=== PATIENT | female | born 1975 | race Caucasian/White ===

== ENCOUNTER 2021-07-14 14:16 | Inpatient (IN) | payer OTHER ==
[2021-07-14 15:32] VITALS: BMI 24.9
[2021-07-14] MEDS ORDERED: MENTHOL/PHENOL 1 EACH UD MM PRN (17:57)
[2021-07-14] MEDS ORDERED: hydrOXYzine PAMOATE 25 MG CAPSULE (FP) PO PRN (17:57)
[2021-07-14] MEDS ORDERED: MAGNESIUM CITRATE 300 ML BOTTLE PO PRN (17:57)
[2021-07-14] MEDS ORDERED: MAG HYDROX/AL HYDROX/SIMETH 30 ML UNIT-DOSE CUP PO PRN (17:57)
[2021-07-14] MEDS ORDERED: MAGNESIUM HYDROX 2400MG/30ML ORAL SUSPENSION 30 ML CUP PO PRN (17:57)
[2021-07-14] MEDS ORDERED: IBUPROFEN 400 MG TABLET (FP) PO PRN (17:57)
[2021-07-14] MEDS ORDERED: ACETAMINOPHEN 325 MG TABLET (FP) PO PRN ×2 (17:57)
[2021-07-14] MEDS ORDERED: BISMUTH SUBSALICYLATE 524 MG/30 ML PO PRN (17:57)
[2021-07-14] MEDS ORDERED: ONDANSETRON *ODT* 4 MG TABLET SL PRN (17:57)
[2021-07-14] MEDS ORDERED: COLLOIDAL OATMEAL 1 BAR EACH TP PRN (17:59)
[2021-07-14] MEDS ORDERED: diazePAM 5 MG TABLET PO ONE (20:00)
[2021-07-14] MEDS: THIAMINE HCL 100 MG TABLET (FP) PO SCH (21:22)
[2021-07-14] MEDS ORDERED: MELATONIN 5 MG TABLETS PO SCH (22:00)
[2021-07-14] MEDS: diazePAM 5 MG TABLET PO SCH (22:17)
[2021-07-15] MEDS: diazePAM 5 MG TABLET PO SCH ×4 (05:57→22:22)
[2021-07-15] MEDS ORDERED: diazePAM 5 MG TABLET PO ONE (09:30)
[2021-07-15] MEDS: PRENATAL VITAMINS W/ FOLIC ACID TABLET (FP) PO SCH (10:21)
[2021-07-15] MEDS: METHOCARBAMOL 500 MG TABLET PO PRN (10:23)
[2021-07-15 10:26] LABS: HEMATOCRIT 34.3 % (32.4-45.2); HEMOGLOBIN 11.7 GM/dL (10.7-15.3); MCH 32.3 pg (25.7-33.7); MCHC 34.2 g/dl (32.0-36.0); MEAN CELL VOLUME 94.3 fl (80-96); MEAN PLT VOLUME 7.4 fl (7.5-11.1); PLATELET COUNT 607 10^3/uL (134-434); RBC 3.63 M/mm3 (3.60-5.2); RDW 17.2 % (11.6-15.6); WHITE BLOOD COUNT 8.7 K/mm3 (4.0-10.0)
[2021-07-15 11:03] LABS: ALBUMIN 3.5 g/dl (3.4-5.0); CALCIUM 9.2 mg/dL (8.5-10.1)
[2021-07-15 11:06] LABS: CREATININE 0.7 mg/dL (0.55-1.3)
[2021-07-15 11:08] LABS: BILIRUBIN,TOTAL 0.6 mg/dL (0.2-1); TOT PROT 7.6 g/dl (6.4-8.2)
[2021-07-15] MEDS ORDERED: FLU VACC QS2021-22(6MOS UP)/PF 60 MCG/0.5 ML SYRINGE IM ONE (12:00)
[2021-07-15] MEDS: GABAPENTIN 100 MG CAPSULE PO SCH ×2 (14:33→22:20)
[2021-07-15] MEDS: amLODIPine BESYLATE 5 MG TABLET (FP) PO SCH (14:33)
[2021-07-15] MEDS: MINERAL OIL/PETROLAT/WATER TOPICAL CREAM 113 GM JAR TP SCH (22:18)
[2021-07-15] MEDS: QUEtiapine FUMARATE 50 MG TABLET PO SCH (22:20)
[2021-07-15] MEDS: THIAMINE HCL 100 MG TABLET (FP) PO SCH (22:21)
[2021-07-15] MEDS: NICOTINE POLACRILEX 2 MG GUM BUC PRN (22:22)
[2021-07-16] MEDS: GABAPENTIN 100 MG CAPSULE PO SCH ×3 (05:48→21:06)
[2021-07-16] MEDS: diazePAM 5 MG TABLET PO SCH ×3 (06:51→22:07)
[2021-07-16] MEDS: MINERAL OIL/PETROLAT/WATER TOPICAL CREAM 113 GM JAR TP SCH ×2 (10:13→22:06)
[2021-07-16] MEDS: PRENATAL VITAMINS W/ FOLIC ACID TABLET (FP) PO SCH (10:14)
[2021-07-16] MEDS: amLODIPine BESYLATE 5 MG TABLET (FP) PO SCH (10:14)
[2021-07-16] MEDS: diazePAM 5 MG TABLET PO PRN (10:16)
[2021-07-16] MEDS: NICOTINE POLACRILEX 2 MG GUM BUC PRN (19:23)
[2021-07-16] MEDS: QUEtiapine FUMARATE 50 MG TABLET PO SCH (22:06)
[2021-07-16] MEDS: THIAMINE HCL 100 MG TABLET (FP) PO SCH (22:06)
[2021-07-17] MEDS: diazePAM 5 MG TABLET PO SCH ×2 (05:37→17:20)
[2021-07-17] MEDS: GABAPENTIN 300 MG CAPSULE PO SCH ×3 (05:37→22:06)
[2021-07-17] MEDS: MINERAL OIL/PETROLAT/WATER TOPICAL CREAM 113 GM JAR TP SCH ×2 (10:27→22:05)
[2021-07-17] MEDS: METHOCARBAMOL 500 MG TABLET PO PRN (10:28)
[2021-07-17] MEDS: diazePAM 5 MG TABLET PO PRN (10:28)
[2021-07-17] MEDS: amLODIPine BESYLATE 5 MG TABLET (FP) PO SCH (10:28)
[2021-07-17] MEDS: PRENATAL VITAMINS W/ FOLIC ACID TABLET (FP) PO SCH (10:28)
[2021-07-17] MEDS: NICOTINE POLACRILEX 2 MG GUM BUC PRN ×2 (10:30→16:31)
[2021-07-17] MEDS ORDERED: NICOTINE 10 MG CARTRIDGE (INHALER) IH PRN (16:40)
[2021-07-17 21:03] VITALS: PULSE 97
[2021-07-17] MEDS: THIAMINE HCL 100 MG TABLET (FP) PO SCH (22:05)
[2021-07-17] MEDS: QUEtiapine FUMARATE 50 MG TABLET PO SCH (22:06)
[2021-07-18] MEDS ORDERED: GABAPENTIN 400 MG CAPSULE PO SCH (06:00)
[2021-07-18] MEDS ORDERED: diazePAM 5 MG TABLET PO ONE (06:00)
[2021-07-18 07:24] VITALS: BP 110/65; TEMP 97.3
== END 2021-07-18 09:25 | disposition home or self-care (01) | DRG 775 ==
LOC: YASAS 14:16 → Y6N 19:57
PROVIDERS: ADMIT Allergy & Immunology; ATTEND Allergy & Immunology
PROC: HZ2ZZZZ Detoxification Services for Substance Abuse Treatment (ICD-10-PCS; principal; 2021-07-14)
DX: F10.230 Alcohol dependence with withdrawal, uncomplicated (principal); F17.210 Nicotine dependence, cigarettes, uncomplicated; F10.280 Alcohol dependence with alcohol-induced anxiety disorder; F10.282 Alcohol dependence with alcohol-induced sleep disorder; I10 Essential (primary) hypertension; K21.9 Gastro-esophageal reflux disease without esophagitis; R74.01 Elevation of levels of liver transaminase levels; Z56.0 Unemployment, unspecified; Z59.00 Homelessness unspecified
CPT/HCPCS: 36415; 80053; 81025; 85027; 86780; 90686; C9803; G0008; Q0162; U0003; U0005

== ENCOUNTER 2021-11-11 12:56 | Inpatient (IN) | payer OTHER ==
[2021-11-11] MEDS ORDERED: MAGNESIUM HYDROX 2400MG/30ML ORAL SUSPENSION 30 ML CUP PO PRN (13:48)
[2021-11-11] MEDS ORDERED: LORazepam 1 MG TABLET PO PRN (13:48)
[2021-11-11] MEDS ORDERED: MAGNESIUM CITRATE 300 ML BOTTLE PO PRN (13:48)
[2021-11-11] MEDS ORDERED: MENTHOL/PHENOL 1 EACH UD MM PRN (13:48)
[2021-11-11] MEDS ORDERED: NICOTINE 10 MG CARTRIDGE (INHALER) IH PRN (13:48)
[2021-11-11] MEDS ORDERED: ONDANSETRON *ODT* 4 MG TABLET SL PRN (13:48)
[2021-11-11] MEDS ORDERED: IBUPROFEN 400 MG TABLET (FP) PO PRN (13:48)
[2021-11-11] MEDS ORDERED: ACETAMINOPHEN 325 MG TABLET (FP) PO PRN ×2 (13:48)
[2021-11-11] MEDS ORDERED: METHOCARBAMOL 500 MG TABLET PO PRN (13:48)
[2021-11-11] MEDS ORDERED: MAG HYDROX/AL HYDROX/SIMETH 30 ML UNIT-DOSE CUP PO PRN (13:48)
[2021-11-11] MEDS ORDERED: BISMUTH SUBSALICYLATE 524 MG/30 ML PO PRN (13:48)
[2021-11-11] MEDS ORDERED: PATIENT'S OWN MEDICATION (NON-FORMULARY) (Meloxicam [Meloxicam] 15 MG Tablet) PO PRN (13:51)
[2021-11-11 14:18] VITALS: BMI 23.2
[2021-11-11] MEDS ORDERED: COLLOIDAL OATMEAL 1 BAR EACH TP PRN (15:04)
[2021-11-11 16:44] LABS: HEMATOCRIT 35.4 % (32.4-45.2); MCH 33.3 pg (25.7-33.7); MEAN PLT VOLUME 7.3 fl (7.5-11.1); PLATELET COUNT 329 10^3/uL (134-434); RBC 3.61 M/mm3 (3.60-5.2); RDW 13.8 % (11.6-15.6); WHITE BLOOD COUNT 5.2 K/mm3 (4.0-10.0)
[2021-11-11 16:50] LABS: ALBUMIN 4.2 g/dl (3.4-5.0); BLOOD UREA NITROGEN 6.2 mg/dL (7-18); CALCIUM 9.1 mg/dL (8.5-10.1)
[2021-11-11 16:53] LABS: CREATININE 0.6 mg/dL (0.55-1.3)
[2021-11-11 16:55] LABS: BILIRUBIN,TOTAL 0.5 mg/dL (0.2-1); TOT PROT 8.4 g/dl (6.4-8.2)
[2021-11-11] MEDS: hydrOXYzine PAMOATE 25 MG CAPSULE (FP) PO SCH ×3 (17:52→22:29)
[2021-11-11] MEDS: LORazepam 2 MG TABLET PO SCH ×2 (17:52→22:29)
[2021-11-11] MEDS: NICOTINE 7 MG/24 HOURS TOPICAL PATCH TD SCH (17:54)
[2021-11-11] MEDS: PRENATAL VITAMINS W/ FOLIC ACID TABLET (FP) PO SCH (17:55)
[2021-11-11] MEDS ORDERED: QUEtiapine FUMARATE 50 MG TABLET PO SCH (22:00)
[2021-11-11] MEDS: GABAPENTIN 300 MG CAPSULE PO SCH (22:29)
[2021-11-11] MEDS: THIAMINE HCL 100 MG TABLET (FP) PO SCH (22:29)
[2021-11-11] MEDS: MELATONIN 5 MG TABLETS PO SCH (22:29)
[2021-11-12] MEDS: hydrOXYzine PAMOATE 25 MG CAPSULE (FP) PO SCH ×6 (00:43→23:10)
[2021-11-12] MEDS: LORazepam 2 MG TABLET PO SCH ×4 (05:58→23:10)
[2021-11-12] MEDS: GABAPENTIN 300 MG CAPSULE PO SCH ×2 (10:44→23:10)
[2021-11-12] MEDS: PANTOPRAZOLE 20 MG TABLET PO SCH (10:45)
[2021-11-12] MEDS: amLODIPine BESYLATE 5 MG TABLET (FP) PO SCH (10:45)
[2021-11-12] MEDS: PRENATAL VITAMINS W/ FOLIC ACID TABLET (FP) PO SCH (10:45)
[2021-11-12] MEDS: NICOTINE 7 MG/24 HOURS TOPICAL PATCH TD SCH (10:45)
[2021-11-12] MEDS: TOPIRAMATE 25 MG TABLET PO SCH (22:54)
[2021-11-12] MEDS: MELATONIN 5 MG TABLETS PO SCH (23:09)
[2021-11-12] MEDS: risperiDONE 1 MG TABLET PO SCH (23:10)
[2021-11-12] MEDS: THIAMINE HCL 100 MG TABLET (FP) PO SCH (23:10)
[2021-11-13] MEDS: hydrOXYzine PAMOATE 25 MG CAPSULE (FP) PO SCH ×5 (06:05→22:40)
[2021-11-13] MEDS: LORazepam 1 MG TABLET PO SCH ×4 (06:05→22:40)
[2021-11-13] MEDS: PRENATAL VITAMINS W/ FOLIC ACID TABLET (FP) PO SCH (10:34)
[2021-11-13] MEDS: TOPIRAMATE 25 MG TABLET PO SCH ×2 (10:34→22:41)
[2021-11-13] MEDS: NICOTINE 7 MG/24 HOURS TOPICAL PATCH TD SCH (10:34)
[2021-11-13] MEDS: SERTRALINE HCL 50 MG TABLET (FP) PO SCH (10:34)
[2021-11-13] MEDS: PANTOPRAZOLE 20 MG TABLET PO SCH (10:35)
[2021-11-13] MEDS: amLODIPine BESYLATE 5 MG TABLET (FP) PO SCH (10:41)
[2021-11-13] MEDS: GABAPENTIN 300 MG CAPSULE PO SCH ×2 (11:36→22:39)
[2021-11-13] MEDS: THIAMINE HCL 100 MG TABLET (FP) PO SCH (22:40)
[2021-11-13] MEDS: MELATONIN 5 MG TABLETS PO SCH (22:40)
[2021-11-13] MEDS: risperiDONE 1 MG TABLET PO SCH (22:40)
[2021-11-14] MEDS ORDERED: LORazepam 0.5 MG TABLET PO PRN
[2021-11-14] MEDS: hydrOXYzine PAMOATE 25 MG CAPSULE (FP) PO SCH ×5 (06:22→22:34)
[2021-11-14] MEDS: LORazepam 0.5 MG TABLET PO SCH ×4 (06:23→22:34)
[2021-11-14] MEDS: GABAPENTIN 300 MG CAPSULE PO SCH ×2 (11:12→22:34)
[2021-11-14] MEDS: SERTRALINE HCL 50 MG TABLET (FP) PO SCH (11:13)
[2021-11-14] MEDS: amLODIPine BESYLATE 5 MG TABLET (FP) PO SCH (11:14)
[2021-11-14] MEDS: PANTOPRAZOLE 20 MG TABLET PO SCH (11:14)
[2021-11-14] MEDS: PRENATAL VITAMINS W/ FOLIC ACID TABLET (FP) PO SCH (11:15)
[2021-11-14] MEDS: NICOTINE 7 MG/24 HOURS TOPICAL PATCH TD SCH (11:18)
[2021-11-14] MEDS: TOPIRAMATE 25 MG TABLET PO SCH ×2 (11:18→22:36)
[2021-11-14] MEDS: THIAMINE HCL 100 MG TABLET (FP) PO SCH (22:34)
[2021-11-14] MEDS: risperiDONE 1 MG TABLET PO SCH (22:34)
[2021-11-14] MEDS: MELATONIN 5 MG TABLETS PO SCH (22:34)
[2021-11-15] MEDS ORDERED: LORazepam 0.5 MG TABLET PO ONE (05:00)
[2021-11-15] MEDS: hydrOXYzine PAMOATE 25 MG CAPSULE (FP) PO SCH ×3 (06:14→14:57)
[2021-11-15] MEDS: NICOTINE 7 MG/24 HOURS TOPICAL PATCH TD SCH (10:31)
[2021-11-15] MEDS: GABAPENTIN 300 MG CAPSULE PO SCH (10:31)
[2021-11-15] MEDS: PRENATAL VITAMINS W/ FOLIC ACID TABLET (FP) PO SCH (10:31)
[2021-11-15] MEDS: PANTOPRAZOLE 20 MG TABLET PO SCH (10:31)
[2021-11-15] MEDS: amLODIPine BESYLATE 5 MG TABLET (FP) PO SCH (10:31)
[2021-11-15] MEDS: SERTRALINE HCL 50 MG TABLET (FP) PO SCH (10:31)
[2021-11-15] MEDS: TOPIRAMATE 25 MG TABLET PO SCH (10:32)
[2021-11-15 13:23] VITALS: BP 118/70; PULSE 104; TEMP 98
== END 2021-11-15 15:14 | disposition other institution (70) | DRG 774 ==
LOC: YASAS 12:56 → Y6N 16:45
PROVIDERS: ADMIT Allergy & Immunology; ATTEND Allergy & Immunology
PROC: HZ2ZZZZ Detoxification Services for Substance Abuse Treatment (ICD-10-PCS; principal; 2021-11-11)
DX: F10.230 Alcohol dependence with withdrawal, uncomplicated (principal); F14.10 Cocaine abuse, uncomplicated; F17.213 Nicotine dependence, cigarettes, with withdrawal; F10.280 Alcohol dependence with alcohol-induced anxiety disorder; F10.24 Alcohol dependence with alcohol-induced mood disorder; F39 Unspecified mood [affective] disorder; I10 Essential (primary) hypertension; K21.9 Gastro-esophageal reflux disease without esophagitis; R74.01 Elevation of levels of liver transaminase levels
CPT/HCPCS: 36415; 80053; 81025; 85027; 86780; C9803; J2794; U0003; U0005

== ENCOUNTER 2021-11-15 15:51 | Inpatient (IN) | payer OTHER ==
[2021-11-15] MEDS ORDERED: MAG HYDROX/AL HYDROX/SIMETH 30 ML UNIT-DOSE CUP PO PRN (16:09)
[2021-11-15] MEDS ORDERED: MAGNESIUM HYDROX 2400MG/30ML ORAL SUSPENSION 30 ML CUP PO PRN (16:09)
[2021-11-15] MEDS ORDERED: MAGNESIUM CITRATE 300 ML BOTTLE PO PRN (16:09)
[2021-11-15] MEDS ORDERED: LOPERAMIDE HCL 2 MG CAPSULE PO PRN (16:09)
[2021-11-15] MEDS ORDERED: P-EPHED 60MG/TRIPROLIDI 2.5MG TABLET PO PRN (16:09)
[2021-11-15] MEDS ORDERED: guaiFENesin 200 MG/10 ML 10 ML UNIT-DOSE CUPS PO PRN (16:09)
[2021-11-15] MEDS ORDERED: IBUPROFEN 400 MG TABLET (FP) PO PRN (16:09)
[2021-11-15] MEDS: hydrOXYzine PAMOATE 25 MG CAPSULE (FP) PO PRN (21:43)
[2021-11-15] MEDS: MELATONIN 5 MG TABLETS PO SCH (21:43)
[2021-11-15] MEDS: THIAMINE HCL 100 MG TABLET (FP) PO SCH (21:44)
[2021-11-15] MEDS ORDERED: risperiDONE 1 MG TABLET PO ONE (22:49)
[2021-11-15] MEDS ORDERED: TOPIRAMATE 25 MG TABLET PO ONE (22:50)
[2021-11-16] MEDS: hydrOXYzine PAMOATE 25 MG CAPSULE (FP) PO PRN (06:21)
[2021-11-16] MEDS: PRENATAL VITAMINS W/ FOLIC ACID TABLET (FP) PO SCH (10:30)
[2021-11-16] MEDS: GABAPENTIN 300 MG CAPSULE PO SCH ×2 (10:30→21:53)
[2021-11-16] MEDS: SERTRALINE HCL 50 MG TABLET (FP) PO SCH (10:30)
[2021-11-16] MEDS: PANTOPRAZOLE 20 MG TABLET PO SCH (10:30)
[2021-11-16] MEDS: TOPIRAMATE 25 MG TABLET PO SCH ×2 (10:31→21:54)
[2021-11-16] MEDS: NICOTINE 7 MG/24 HOURS TOPICAL PATCH TD SCH (10:32)
[2021-11-16] MEDS ORDERED: PNEUMOC 13-VAL CONJ-DIP CRM/PF 0.5 ML DISP.SYRIN IM ONE (12:00)
[2021-11-16] MEDS ORDERED: FLU VACC QS2021-22(6MOS UP)/PF 60 MCG/0.5 ML SYRINGE IM ONE (12:00)
[2021-11-16] MEDS ORDERED: PNEUMOCOCCAL 23 VACCINE 0.5 ML VIAL IM ONE (12:01)
[2021-11-16] MEDS ORDERED: COLLOIDAL OATMEAL 1 BAR EACH TP PRN (15:49)
[2021-11-16] MEDS ORDERED: LIDOCAINE 5% TOPICAL PATCH TP ONE (16:02)
[2021-11-16 16:25] LABS: HIV INTERPRETATION NEGATIVE (NEGATIVE)
[2021-11-16] MEDS: MINERAL OIL/PETROLAT/WATER TOPICAL CREAM 113 GM JAR TP SCH (19:03)
[2021-11-16] MEDS: THIAMINE HCL 100 MG TABLET (FP) PO SCH (21:53)
[2021-11-16] MEDS: MELATONIN 5 MG TABLETS PO SCH (21:53)
[2021-11-16] MEDS: risperiDONE 1 MG TABLET PO SCH (21:56)
[2021-11-16] MEDS ORDERED: LIDOCAINE PATCH REMOVAL MC SCH (22:00)
[2021-11-17] MEDS: GABAPENTIN 300 MG CAPSULE PO SCH ×2 (10:21→21:30)
[2021-11-17] MEDS: PRENATAL VITAMINS W/ FOLIC ACID TABLET (FP) PO SCH (10:21)
[2021-11-17] MEDS: PANTOPRAZOLE 20 MG TABLET PO SCH (10:21)
[2021-11-17] MEDS: hydrOXYzine PAMOATE 25 MG CAPSULE (FP) PO PRN ×2 (10:21→21:30)
[2021-11-17] MEDS: SERTRALINE HCL 50 MG TABLET (FP) PO SCH (10:21)
[2021-11-17] MEDS: NICOTINE 7 MG/24 HOURS TOPICAL PATCH TD SCH (10:22)
[2021-11-17] MEDS: TOPIRAMATE 25 MG TABLET PO SCH ×2 (10:22→21:30)
[2021-11-17] MEDS: NICOTINE 10 MG CARTRIDGE (INHALER) IH PRN ×2 (10:25→14:59)
[2021-11-17] MEDS: LIDOCAINE 5% TOPICAL PATCH TP SCH (11:23)
[2021-11-17] MEDS: MINERAL OIL/PETROLAT/WATER TOPICAL CREAM 113 GM JAR TP SCH (11:26)
[2021-11-17] MEDS: THIAMINE HCL 100 MG TABLET (FP) PO SCH (21:29)
[2021-11-17] MEDS: risperiDONE 1 MG TABLET PO SCH (21:29)
[2021-11-17] MEDS: MELATONIN 5 MG TABLETS PO SCH (21:29)
[2021-11-17] MEDS: LIDOCAINE PATCH REMOVAL MC SCH (21:29)
[2021-11-18] MEDS: GABAPENTIN 300 MG CAPSULE PO SCH ×2 (10:54→21:48)
[2021-11-18] MEDS: PANTOPRAZOLE 20 MG TABLET PO SCH (10:54)
[2021-11-18] MEDS: SERTRALINE HCL 50 MG TABLET (FP) PO SCH (10:54)
[2021-11-18] MEDS: PRENATAL VITAMINS W/ FOLIC ACID TABLET (FP) PO SCH (10:54)
[2021-11-18] MEDS: NICOTINE 7 MG/24 HOURS TOPICAL PATCH TD SCH (10:55)
[2021-11-18] MEDS: NICOTINE 10 MG CARTRIDGE (INHALER) IH PRN ×2 (10:55→18:00)
[2021-11-18] MEDS: LIDOCAINE 5% TOPICAL PATCH TP SCH (10:56)
[2021-11-18] MEDS: TOPIRAMATE 25 MG TABLET PO SCH ×2 (10:57→22:47)
[2021-11-18] MEDS: MINERAL OIL/PETROLAT/WATER TOPICAL CREAM 113 GM JAR TP SCH (10:57)
[2021-11-18] MEDS: risperiDONE 1 MG TABLET PO SCH (21:48)
[2021-11-18] MEDS: LIDOCAINE PATCH REMOVAL MC SCH (21:49)
[2021-11-18] MEDS: MELATONIN 5 MG TABLETS PO SCH (21:49)
[2021-11-18] MEDS: THIAMINE HCL 100 MG TABLET (FP) PO SCH (22:46)
[2021-11-19] MEDS: SERTRALINE HCL 50 MG TABLET (FP) PO SCH (10:23)
[2021-11-19] MEDS: GABAPENTIN 300 MG CAPSULE PO SCH ×2 (10:23→21:18)
[2021-11-19] MEDS: PRENATAL VITAMINS W/ FOLIC ACID TABLET (FP) PO SCH (10:24)
[2021-11-19] MEDS: NICOTINE 7 MG/24 HOURS TOPICAL PATCH TD SCH (10:24)
[2021-11-19] MEDS: PANTOPRAZOLE 20 MG TABLET PO SCH (10:24)
[2021-11-19] MEDS: MINERAL OIL/PETROLAT/WATER TOPICAL CREAM 113 GM JAR TP SCH (10:25)
[2021-11-19] MEDS: TOPIRAMATE 25 MG TABLET PO SCH ×2 (10:26→21:18)
[2021-11-19] MEDS: LIDOCAINE 5% TOPICAL PATCH TP SCH (10:27)
[2021-11-19] MEDS: NICOTINE 10 MG CARTRIDGE (INHALER) IH PRN ×2 (10:28→21:22)
[2021-11-19] MEDS: hydrOXYzine PAMOATE 25 MG CAPSULE (FP) PO PRN ×2 (10:28→21:19)
[2021-11-19] MEDS: THIAMINE HCL 100 MG TABLET (FP) PO SCH (21:18)
[2021-11-19] MEDS: LIDOCAINE PATCH REMOVAL MC SCH (21:18)
[2021-11-19] MEDS: MELATONIN 5 MG TABLETS PO SCH (21:18)
[2021-11-19] MEDS: risperiDONE 1 MG TABLET PO SCH (21:18)
[2021-11-20] MEDS: GABAPENTIN 300 MG CAPSULE PO SCH ×2 (10:40→21:32)
[2021-11-20] MEDS: PRENATAL VITAMINS W/ FOLIC ACID TABLET (FP) PO SCH (10:40)
[2021-11-20] MEDS: SERTRALINE HCL 50 MG TABLET (FP) PO SCH (10:40)
[2021-11-20] MEDS: PANTOPRAZOLE 20 MG TABLET PO SCH (10:40)
[2021-11-20] MEDS: MINERAL OIL/PETROLAT/WATER TOPICAL CREAM 113 GM JAR TP SCH (10:41)
[2021-11-20] MEDS: NICOTINE 7 MG/24 HOURS TOPICAL PATCH TD SCH (10:42)
[2021-11-20] MEDS: LIDOCAINE 5% TOPICAL PATCH TP SCH (10:42)
[2021-11-20] MEDS: TOPIRAMATE 25 MG TABLET PO SCH ×2 (10:43→21:32)
[2021-11-20] MEDS: hydrOXYzine PAMOATE 25 MG CAPSULE (FP) PO PRN ×2 (10:44→21:33)
[2021-11-20] MEDS: THIAMINE HCL 100 MG TABLET (FP) PO SCH (21:32)
[2021-11-20] MEDS: MELATONIN 5 MG TABLETS PO SCH (21:32)
[2021-11-20] MEDS: LIDOCAINE PATCH REMOVAL MC SCH (21:32)
[2021-11-20] MEDS: risperiDONE 1 MG TABLET PO SCH (21:32)
[2021-11-20] MEDS: NICOTINE 10 MG CARTRIDGE (INHALER) IH PRN (21:34)
[2021-11-21] MEDS: LIDOCAINE 5% TOPICAL PATCH TP SCH (10:35)
[2021-11-21] MEDS: PRENATAL VITAMINS W/ FOLIC ACID TABLET (FP) PO SCH (10:35)
[2021-11-21] MEDS: GABAPENTIN 300 MG CAPSULE PO SCH ×2 (10:36→21:56)
[2021-11-21] MEDS: SERTRALINE HCL 50 MG TABLET (FP) PO SCH (10:36)
[2021-11-21] MEDS: TOPIRAMATE 25 MG TABLET PO SCH ×2 (10:36→21:56)
[2021-11-21] MEDS: hydrOXYzine PAMOATE 25 MG CAPSULE (FP) PO PRN ×2 (10:37→21:56)
[2021-11-21] MEDS: PANTOPRAZOLE 20 MG TABLET PO SCH (10:37)
[2021-11-21] MEDS: NICOTINE 7 MG/24 HOURS TOPICAL PATCH TD SCH (10:38)
[2021-11-21] MEDS: MINERAL OIL/PETROLAT/WATER TOPICAL CREAM 113 GM JAR TP SCH (11:12)
[2021-11-21] MEDS: NICOTINE 10 MG CARTRIDGE (INHALER) IH PRN (15:02)
[2021-11-21] MEDS: THIAMINE HCL 100 MG TABLET (FP) PO SCH (21:56)
[2021-11-21] MEDS: LIDOCAINE PATCH REMOVAL MC SCH (21:56)
[2021-11-21] MEDS: MELATONIN 5 MG TABLETS PO SCH (21:56)
[2021-11-21] MEDS: risperiDONE 1 MG TABLET PO SCH (21:57)
[2021-11-22] MEDS: GABAPENTIN 300 MG CAPSULE PO SCH ×2 (10:32→21:39)
[2021-11-22] MEDS: LIDOCAINE 5% TOPICAL PATCH TP SCH (10:32)
[2021-11-22] MEDS: PANTOPRAZOLE 20 MG TABLET PO SCH (10:33)
[2021-11-22] MEDS: SERTRALINE HCL 50 MG TABLET (FP) PO SCH (10:33)
[2021-11-22] MEDS: PRENATAL VITAMINS W/ FOLIC ACID TABLET (FP) PO SCH (10:33)
[2021-11-22] MEDS: TOPIRAMATE 25 MG TABLET PO SCH ×2 (10:34→21:39)
[2021-11-22] MEDS: NICOTINE 7 MG/24 HOURS TOPICAL PATCH TD SCH (10:35)
[2021-11-22] MEDS: NICOTINE 10 MG CARTRIDGE (INHALER) IH PRN ×2 (10:35→21:39)
[2021-11-22] MEDS: MINERAL OIL/PETROLAT/WATER TOPICAL CREAM 113 GM JAR TP SCH (10:37)
[2021-11-22] MEDS: THIAMINE HCL 100 MG TABLET (FP) PO SCH (21:39)
[2021-11-22] MEDS: hydrOXYzine PAMOATE 25 MG CAPSULE (FP) PO PRN (21:39)
[2021-11-22] MEDS: risperiDONE 1 MG TABLET PO SCH (21:39)
[2021-11-22] MEDS: MELATONIN 5 MG TABLETS PO SCH (21:40)
[2021-11-22] MEDS: LIDOCAINE PATCH REMOVAL MC SCH (21:40)
[2021-11-23] MEDS: PRENATAL VITAMINS W/ FOLIC ACID TABLET (FP) PO SCH (10:07)
[2021-11-23] MEDS: hydrOXYzine PAMOATE 25 MG CAPSULE (FP) PO PRN ×2 (10:07→21:38)
[2021-11-23] MEDS: PANTOPRAZOLE 20 MG TABLET PO SCH (10:07)
[2021-11-23] MEDS: NICOTINE 7 MG/24 HOURS TOPICAL PATCH TD SCH (10:07)
[2021-11-23] MEDS: GABAPENTIN 300 MG CAPSULE PO SCH ×2 (10:07→21:38)
[2021-11-23] MEDS: SERTRALINE HCL 50 MG TABLET (FP) PO SCH (10:07)
[2021-11-23] MEDS: LIDOCAINE 5% TOPICAL PATCH TP SCH (10:09)
[2021-11-23] MEDS: MINERAL OIL/PETROLAT/WATER TOPICAL CREAM 113 GM JAR TP SCH (10:09)
[2021-11-23] MEDS: TOPIRAMATE 25 MG TABLET PO SCH ×2 (10:11→21:38)
[2021-11-23] MEDS: risperiDONE 1 MG TABLET PO SCH (21:38)
[2021-11-23] MEDS: THIAMINE HCL 100 MG TABLET (FP) PO SCH (21:38)
[2021-11-23] MEDS: LIDOCAINE PATCH REMOVAL MC SCH (21:38)
[2021-11-23] MEDS: MELATONIN 5 MG TABLETS PO SCH (21:38)
[2021-11-23] MEDS: NICOTINE 10 MG CARTRIDGE (INHALER) IH PRN (21:39)
[2021-11-24] MEDS: PANTOPRAZOLE 20 MG TABLET PO SCH (10:07)
[2021-11-24] MEDS: PRENATAL VITAMINS W/ FOLIC ACID TABLET (FP) PO SCH (10:07)
[2021-11-24] MEDS: GABAPENTIN 300 MG CAPSULE PO SCH ×2 (10:07→21:32)
[2021-11-24] MEDS: hydrOXYzine PAMOATE 25 MG CAPSULE (FP) PO PRN ×2 (10:07→21:34)
[2021-11-24] MEDS: SERTRALINE HCL 50 MG TABLET (FP) PO SCH (10:07)
[2021-11-24] MEDS: TOPIRAMATE 25 MG TABLET PO SCH ×2 (10:08→21:32)
[2021-11-24] MEDS: NICOTINE 7 MG/24 HOURS TOPICAL PATCH TD SCH (10:10)
[2021-11-24] MEDS: LIDOCAINE 5% TOPICAL PATCH TP SCH (10:10)
[2021-11-24] MEDS: MINERAL OIL/PETROLAT/WATER TOPICAL CREAM 113 GM JAR TP SCH (10:10)
[2021-11-24] MEDS: NICOTINE 10 MG CARTRIDGE (INHALER) IH PRN (17:04)
[2021-11-24] MEDS: MELATONIN 5 MG TABLETS PO SCH (21:32)
[2021-11-24] MEDS: THIAMINE HCL 100 MG TABLET (FP) PO SCH (21:32)
[2021-11-24] MEDS: LIDOCAINE PATCH REMOVAL MC SCH (21:32)
[2021-11-24] MEDS: risperiDONE 1 MG TABLET PO SCH (21:32)
[2021-11-25] MEDS: SERTRALINE HCL 50 MG TABLET (FP) PO SCH (10:23)
[2021-11-25] MEDS: PRENATAL VITAMINS W/ FOLIC ACID TABLET (FP) PO SCH (10:23)
[2021-11-25] MEDS: GABAPENTIN 300 MG CAPSULE PO SCH ×2 (10:23→21:29)
[2021-11-25] MEDS: MINERAL OIL/PETROLAT/WATER TOPICAL CREAM 113 GM JAR TP SCH (10:24)
[2021-11-25] MEDS: LIDOCAINE 5% TOPICAL PATCH TP SCH (10:24)
[2021-11-25] MEDS: PANTOPRAZOLE 20 MG TABLET PO SCH (10:24)
[2021-11-25] MEDS: NICOTINE 7 MG/24 HOURS TOPICAL PATCH TD SCH (10:25)
[2021-11-25] MEDS: TOPIRAMATE 25 MG TABLET PO SCH ×2 (10:26→21:30)
[2021-11-25] MEDS: hydrOXYzine PAMOATE 25 MG CAPSULE (FP) PO PRN ×2 (10:27→21:29)
[2021-11-25] MEDS: NICOTINE 10 MG CARTRIDGE (INHALER) IH PRN ×2 (12:07→21:31)
[2021-11-25] MEDS: risperiDONE 1 MG TABLET PO SCH (21:29)
[2021-11-25] MEDS: THIAMINE HCL 100 MG TABLET (FP) PO SCH (21:30)
[2021-11-25] MEDS: LIDOCAINE PATCH REMOVAL MC SCH (21:30)
[2021-11-25] MEDS: MELATONIN 5 MG TABLETS PO SCH (21:30)
[2021-11-26] MEDS: GABAPENTIN 300 MG CAPSULE PO SCH ×2 (10:23→21:41)
[2021-11-26] MEDS: SERTRALINE HCL 50 MG TABLET (FP) PO SCH (10:23)
[2021-11-26] MEDS: PRENATAL VITAMINS W/ FOLIC ACID TABLET (FP) PO SCH (10:23)
[2021-11-26] MEDS: PANTOPRAZOLE 20 MG TABLET PO SCH (10:23)
[2021-11-26] MEDS: TOPIRAMATE 25 MG TABLET PO SCH ×2 (10:24→21:41)
[2021-11-26] MEDS: hydrOXYzine PAMOATE 25 MG CAPSULE (FP) PO PRN (10:24)
[2021-11-26] MEDS: NICOTINE 10 MG CARTRIDGE (INHALER) IH PRN (10:25)
[2021-11-26] MEDS: LIDOCAINE 5% TOPICAL PATCH TP SCH (10:25)
[2021-11-26] MEDS: NICOTINE 7 MG/24 HOURS TOPICAL PATCH TD SCH (10:25)
[2021-11-26] MEDS: MINERAL OIL/PETROLAT/WATER TOPICAL CREAM 113 GM JAR TP SCH (10:26)
[2021-11-26] MEDS: MELATONIN 5 MG TABLETS PO SCH (21:38)
[2021-11-26] MEDS: LIDOCAINE PATCH REMOVAL MC SCH (21:40)
[2021-11-26] MEDS: risperiDONE 1 MG TABLET PO SCH (21:41)
[2021-11-26] MEDS: THIAMINE HCL 100 MG TABLET (FP) PO SCH (21:41)
[2021-11-27] MEDS: GABAPENTIN 300 MG CAPSULE PO SCH ×2 (09:57→21:36)
[2021-11-27] MEDS: SERTRALINE HCL 50 MG TABLET (FP) PO SCH (09:57)
[2021-11-27] MEDS: PRENATAL VITAMINS W/ FOLIC ACID TABLET (FP) PO SCH (09:57)
[2021-11-27] MEDS: NICOTINE 7 MG/24 HOURS TOPICAL PATCH TD SCH (09:58)
[2021-11-27] MEDS: LIDOCAINE 5% TOPICAL PATCH TP SCH (09:58)
[2021-11-27] MEDS: PANTOPRAZOLE 20 MG TABLET PO SCH (09:58)
[2021-11-27] MEDS: hydrOXYzine PAMOATE 25 MG CAPSULE (FP) PO PRN ×2 (09:58→21:39)
[2021-11-27] MEDS: TOPIRAMATE 25 MG TABLET PO SCH ×2 (09:58→21:37)
[2021-11-27] MEDS: MINERAL OIL/PETROLAT/WATER TOPICAL CREAM 113 GM JAR TP SCH (10:00)
[2021-11-27] MEDS: risperiDONE 1 MG TABLET PO SCH (21:36)
[2021-11-27] MEDS: MELATONIN 5 MG TABLETS PO SCH (21:37)
[2021-11-27] MEDS: THIAMINE HCL 100 MG TABLET (FP) PO SCH (21:37)
[2021-11-27] MEDS: NICOTINE 10 MG CARTRIDGE (INHALER) IH PRN (21:39)
[2021-11-27] MEDS: LIDOCAINE PATCH REMOVAL MC SCH (22:18)
[2021-11-28] MEDS: SERTRALINE HCL 50 MG TABLET (FP) PO SCH (10:18)
[2021-11-28] MEDS: TOPIRAMATE 25 MG TABLET PO SCH ×2 (10:18→21:47)
[2021-11-28] MEDS: PANTOPRAZOLE 20 MG TABLET PO SCH (10:18)
[2021-11-28] MEDS: GABAPENTIN 300 MG CAPSULE PO SCH ×2 (10:18→21:46)
[2021-11-28] MEDS: PRENATAL VITAMINS W/ FOLIC ACID TABLET (FP) PO SCH (10:18)
[2021-11-28] MEDS: hydrOXYzine PAMOATE 25 MG CAPSULE (FP) PO PRN ×2 (10:18→21:49)
[2021-11-28] MEDS: LIDOCAINE 5% TOPICAL PATCH TP SCH (10:20)
[2021-11-28] MEDS: NICOTINE 7 MG/24 HOURS TOPICAL PATCH TD SCH (10:20)
[2021-11-28] MEDS: NICOTINE 10 MG CARTRIDGE (INHALER) IH PRN ×2 (10:20→21:48)
[2021-11-28] MEDS: MINERAL OIL/PETROLAT/WATER TOPICAL CREAM 113 GM JAR TP SCH (10:20)
[2021-11-28] MEDS: MELATONIN 5 MG TABLETS PO SCH (21:46)
[2021-11-28] MEDS: LIDOCAINE PATCH REMOVAL MC SCH (21:46)
[2021-11-28] MEDS: THIAMINE HCL 100 MG TABLET (FP) PO SCH (21:47)
[2021-11-28] MEDS: risperiDONE 1 MG TABLET PO SCH (21:47)
[2021-11-29 07:36] VITALS: BP 118/76; PULSE 94; TEMP 97.7
[2021-11-29] MEDS: PRENATAL VITAMINS W/ FOLIC ACID TABLET (FP) PO SCH (09:19)
[2021-11-29] MEDS: GABAPENTIN 300 MG CAPSULE PO SCH (09:19)
[2021-11-29] MEDS: SERTRALINE HCL 50 MG TABLET (FP) PO SCH (09:19)
[2021-11-29] MEDS: PANTOPRAZOLE 20 MG TABLET PO SCH (09:20)
[2021-11-29] MEDS: NICOTINE 7 MG/24 HOURS TOPICAL PATCH TD SCH (09:21)
[2021-11-29] MEDS: hydrOXYzine PAMOATE 25 MG CAPSULE (FP) PO PRN (09:21)
[2021-11-29] MEDS: MINERAL OIL/PETROLAT/WATER TOPICAL CREAM 113 GM JAR TP SCH (09:21)
[2021-11-29] MEDS: TOPIRAMATE 25 MG TABLET PO SCH (09:24)
== END 2021-11-29 09:30 | disposition home or self-care (01) | DRG 772 ==
LOC: YASAS 15:51 → Y5N 15:52
PROVIDERS: ADMIT Allergy & Immunology; ATTEND Allergy & Immunology
PROC: HZ42ZZZ Group Counseling for Substance Abuse Treatment, Cognitive-Behavioral (ICD-10-PCS; principal; 2021-11-15)
DX: F10.20 Alcohol dependence, uncomplicated (principal); F14.20 Cocaine dependence, uncomplicated; F17.210 Nicotine dependence, cigarettes, uncomplicated; F31.9 Bipolar disorder, unspecified; F41.8 Other specified anxiety disorders; I10 Essential (primary) hypertension; K21.9 Gastro-esophageal reflux disease without esophagitis; L30.9 Dermatitis, unspecified; M41.9 Scoliosis, unspecified
CPT/HCPCS: 36415; 87389; 90732; C9803; G0009; J2794; U0003; U0005

== ENCOUNTER 2021-12-20 13:12 | Inpatient (IN) | payer OTHER ==
[2021-12-20] MEDS ORDERED: ONDANSETRON *ODT* 4 MG TABLET SL PRN (14:28)
[2021-12-20] MEDS ORDERED: IBUPROFEN 400 MG TABLET (FP) PO PRN (14:28)
[2021-12-20] MEDS ORDERED: ACETAMINOPHEN 325 MG TABLET (FP) PO PRN ×2 (14:28)
[2021-12-20] MEDS ORDERED: MAG HYDROX/AL HYDROX/SIMETH 30 ML UNIT-DOSE CUP PO PRN (14:28)
[2021-12-20] MEDS ORDERED: MAGNESIUM HYDROX 2400MG/30ML ORAL SUSPENSION 30 ML CUP PO PRN (14:28)
[2021-12-20] MEDS ORDERED: MENTHOL/PHENOL 1 EACH UD MM PRN (14:28)
[2021-12-20] MEDS ORDERED: chlordiazePOXIDE HCL 25 MG CAPSULE PO PRN (14:28)
[2021-12-20] MEDS ORDERED: LOPERAMIDE HCL 2 MG CAPSULE PO PRN (14:28)
[2021-12-20] MEDS ORDERED: MAGNESIUM CITRATE 300 ML BOTTLE PO PRN (14:28)
[2021-12-20] MEDS ORDERED: BISMUTH SUBSALICYLATE 524 MG/30 ML PO PRN (14:28)
[2021-12-20 14:51] VITALS: BMI 21.5
[2021-12-20] MEDS ORDERED: METHOCARBAMOL 500 MG TABLET ONE (16:53)
[2021-12-20] MEDS: METHOCARBAMOL 500 MG TABLET PO PRN ×2 (16:54→22:04)
[2021-12-20] MEDS: hydrOXYzine PAMOATE 25 MG CAPSULE (FP) PO SCH ×2 (17:27→22:04)
[2021-12-20] MEDS: THIAMINE HCL 100 MG TABLET (FP) PO SCH (22:04)
[2021-12-20] MEDS: MELATONIN 5 MG TABLETS PO SCH (22:04)
[2021-12-20] MEDS: chlordiazePOXIDE HCL 25 MG CAPSULE PO SCH (22:06)
[2021-12-21] MEDS: chlordiazePOXIDE HCL 25 MG CAPSULE PO SCH ×4 (06:13→22:26)
[2021-12-21] MEDS: hydrOXYzine PAMOATE 25 MG CAPSULE (FP) PO SCH ×5 (06:13→22:25)
[2021-12-21] MEDS: METHOCARBAMOL 500 MG TABLET PO PRN (10:08)
[2021-12-21] MEDS: PANTOPRAZOLE 20 MG TABLET PO SCH (10:08)
[2021-12-21] MEDS: PRENATAL VITAMINS W/ FOLIC ACID TABLET (FP) PO SCH (10:08)
[2021-12-21] MEDS: NICOTINE 10 MG CARTRIDGE (INHALER) IH PRN ×2 (10:14→19:52)
[2021-12-21 10:27] LABS: HEMATOCRIT 35.3 % (32.4-45.2); HEMOGLOBIN 12.1 GM/dL (10.7-15.3); MCH 33.5 pg (25.7-33.7); MCHC 34.2 g/dl (32.0-36.0); MEAN CELL VOLUME 97.8 fl (80-96); MEAN PLT VOLUME 8.7 fl (7.5-11.1); PLATELET COUNT 150 10^3/uL (134-434); RBC 3.61 M/mm3 (3.60-5.2); WHITE BLOOD COUNT 3.7 K/mm3 (4.0-10.0)
[2021-12-21 10:45] LABS: ALBUMIN 4.4 g/dl (3.4-5.0); CREATININE 0.7 mg/dL (0.55-1.3)
[2021-12-21 10:46] LABS: BILIRUBIN,TOTAL 0.7 mg/dL (0.2-1)
[2021-12-21 10:47] LABS: TOT PROT 8.5 g/dl (6.4-8.2)
[2021-12-21 10:48] LABS: CALCIUM 8.8 mg/dL (8.5-10.1)
[2021-12-21] MEDS ORDERED: POTASSIUM CHLORIDE TABS 10 MEQ TABLET.ER (FP) PO SCH (14:15)
[2021-12-21] MEDS ORDERED: POTASSIUM CHLORIDE TABS 20 MEQ TABLET.ER (FP) PO SCH (14:15)
[2021-12-21] MEDS ORDERED: POTASSIUM CHLORIDE TABS 20 MEQ TABLET.ER (FP) PO ONE (15:00)
[2021-12-21] MEDS ORDERED: POTASSIUM CHLORIDE ORAL LIQUID 20 MEQ/15 ML PO ONE ×2 (15:41→19:00)
[2021-12-21] MEDS: MELATONIN 5 MG TABLETS PO SCH (22:25)
[2021-12-21] MEDS: THIAMINE HCL 100 MG TABLET (FP) PO SCH (22:25)
[2021-12-21] MEDS: QUEtiapine FUMARATE 50 MG TABLET PO SCH (22:26)
[2021-12-22] MEDS: hydrOXYzine PAMOATE 25 MG CAPSULE (FP) PO SCH ×5 (05:49→22:20)
[2021-12-22] MEDS: chlordiazePOXIDE HCL 25 MG CAPSULE PO SCH ×3 (05:52→21:40)
[2021-12-22] MEDS: PANTOPRAZOLE 20 MG TABLET PO SCH (10:41)
[2021-12-22] MEDS: METHOCARBAMOL 500 MG TABLET PO PRN ×2 (10:41→17:37)
[2021-12-22] MEDS: PRENATAL VITAMINS W/ FOLIC ACID TABLET (FP) PO SCH (10:41)
[2021-12-22] MEDS: NICOTINE 10 MG CARTRIDGE (INHALER) IH PRN ×4 (10:46→22:22)
[2021-12-22 14:07] LABS: SARS-CoV-2 NAA Not Detected (Not Detected)
[2021-12-22] MEDS: MELATONIN 5 MG TABLETS PO SCH (22:21)
[2021-12-22] MEDS: THIAMINE HCL 100 MG TABLET (FP) PO SCH (22:21)
[2021-12-22] MEDS: QUEtiapine FUMARATE 50 MG TABLET PO SCH (22:21)
[2021-12-23] MEDS ORDERED: chlordiazePOXIDE HCL 10 MG CAPSULE PO PRN
[2021-12-23] MEDS: chlordiazePOXIDE HCL 25 MG CAPSULE PO SCH (00:18)
[2021-12-23] MEDS: hydrOXYzine PAMOATE 25 MG CAPSULE (FP) PO SCH ×5 (06:27→22:40)
[2021-12-23] MEDS: chlordiazePOXIDE HCL 10 MG CAPSULE PO SCH ×4 (06:28→22:40)
[2021-12-23] MEDS: PRENATAL VITAMINS W/ FOLIC ACID TABLET (FP) PO SCH (10:10)
[2021-12-23] MEDS: PANTOPRAZOLE 20 MG TABLET PO SCH (10:10)
[2021-12-23] MEDS: METHOCARBAMOL 500 MG TABLET PO PRN (10:10)
[2021-12-23] MEDS: NICOTINE 10 MG CARTRIDGE (INHALER) IH PRN ×3 (10:12→22:45)
[2021-12-23] MEDS: QUEtiapine FUMARATE 50 MG TABLET PO SCH (22:40)
[2021-12-23] MEDS: THIAMINE HCL 100 MG TABLET (FP) PO SCH (22:40)
[2021-12-23] MEDS: MELATONIN 5 MG TABLETS PO SCH (22:40)
[2021-12-24] MEDS ORDERED: chlordiazePOXIDE HCL 10 MG CAPSULE PO SCH (05:00)
[2021-12-24] MEDS: hydrOXYzine PAMOATE 25 MG CAPSULE (FP) PO SCH ×2 (06:24→10:16)
[2021-12-24] MEDS: NICOTINE 10 MG CARTRIDGE (INHALER) IH PRN (06:50)
[2021-12-24] MEDS: PANTOPRAZOLE 20 MG TABLET PO SCH (10:16)
[2021-12-24] MEDS: METHOCARBAMOL 500 MG TABLET PO PRN (10:16)
[2021-12-24] MEDS: PRENATAL VITAMINS W/ FOLIC ACID TABLET (FP) PO SCH (10:16)
[2021-12-24] MEDS ORDERED: COLLOIDAL OATMEAL 1 BAR EACH TP PRN (11:51)
[2021-12-24 12:07] VITALS: BP 104/59; PULSE 94; TEMP 96.9
[2021-12-24] MEDS ORDERED: MINERAL OIL/PETROLAT/WATER TOPICAL CREAM 113 GM JAR TP SCH (12:15)
[2021-12-24] MEDS ORDERED: LIDOCAINE 5% TOPICAL PATCH TP SCH (12:15)
[2021-12-24] MEDS ORDERED: LIDOCAINE PATCH REMOVAL MC SCH (22:00)
[2021-12-25] MEDS ORDERED: chlordiazePOXIDE HCL 10 MG CAPSULE PO ONE (05:00)
== END 2021-12-24 12:32 | disposition other institution (70) | DRG 774 ==
LOC: YASAS 13:12 → Y3N 16:48 → Y6N 16:49
PROVIDERS: ADMIT Allergy & Immunology; ATTEND Allergy & Immunology
PROC: HZ2ZZZZ Detoxification Services for Substance Abuse Treatment (ICD-10-PCS; principal; 2021-12-20)
DX: F10.230 Alcohol dependence with withdrawal, uncomplicated (principal); F14.20 Cocaine dependence, uncomplicated; F17.210 Nicotine dependence, cigarettes, uncomplicated; F19.282 Other psychoactive substance dependence with psychoactive substance-induced sleep disorder; F31.81 Bipolar II disorder; F39 Unspecified mood [affective] disorder; F41.9 Anxiety disorder, unspecified; E87.6 Hypokalemia; K21.9 Gastro-esophageal reflux disease without esophagitis; M41.9 Scoliosis, unspecified; N93.9 Abnormal uterine and vaginal bleeding, unspecified; R74.01 Elevation of levels of liver transaminase levels
CPT/HCPCS: 36415; 80053; 81025; 82962; 84132; 84450; 85027; 86780; 87811; 93005; 93010; C9803; U0003; U0005

== ENCOUNTER 2021-12-24 12:34 | Inpatient (IN) | payer OTHER ==
[2021-12-24] MEDS ORDERED: IBUPROFEN 400 MG TABLET (FP) PO PRN (14:20)
[2021-12-24] MEDS ORDERED: MAG HYDROX/AL HYDROX/SIMETH 30 ML UNIT-DOSE CUP PO PRN (14:20)
[2021-12-24] MEDS ORDERED: MENTHOL/PHENOL 1 EACH UD MM PRN (14:20)
[2021-12-24] MEDS ORDERED: P-EPHED 60MG/TRIPROLIDI 2.5MG TABLET PO PRN (14:20)
[2021-12-24] MEDS ORDERED: LOPERAMIDE HCL 2 MG CAPSULE PO PRN (14:20)
[2021-12-24] MEDS ORDERED: MAGNESIUM CITRATE 300 ML BOTTLE PO PRN (14:20)
[2021-12-24] MEDS ORDERED: MAGNESIUM HYDROX 2400MG/30ML ORAL SUSPENSION 30 ML CUP PO PRN (14:20)
[2021-12-24] MEDS ORDERED: guaiFENesin 200 MG/10 ML 10 ML UNIT-DOSE CUPS PO PRN (14:20)
[2021-12-24] MEDS ORDERED: ACETAMINOPHEN 325 MG TABLET (FP) PO PRN (14:20)
[2021-12-24] MEDS: hydrOXYzine PAMOATE 25 MG CAPSULE (FP) PO PRN ×2 (18:55→21:26)
[2021-12-24] MEDS: NICOTINE 10 MG CARTRIDGE (INHALER) IH PRN (18:56)
[2021-12-24] MEDS: MELATONIN 5 MG TABLETS PO SCH (21:25)
[2021-12-24] MEDS: THIAMINE HCL 100 MG TABLET (FP) PO SCH (21:25)
[2021-12-24] MEDS: COLLOIDAL OATMEAL 1 BAR EACH TP PRN (21:25)
[2021-12-24] MEDS: QUEtiapine FUMARATE 100 MG TABLET (FP) PO SCH (21:25)
[2021-12-24] MEDS: LIDOCAINE PATCH REMOVAL MC SCH (21:26)
[2021-12-25] MEDS: PRENATAL VITAMINS W/ FOLIC ACID TABLET (FP) PO SCH (09:53)
[2021-12-25] MEDS: MINERAL OIL/PETROLAT/WATER TOPICAL CREAM 113 GM JAR TP SCH (09:53)
[2021-12-25] MEDS: PANTOPRAZOLE 20 MG TABLET PO SCH (09:53)
[2021-12-25] MEDS: SERTRALINE HCL 50 MG TABLET (FP) PO SCH (09:53)
[2021-12-25] MEDS: hydrOXYzine PAMOATE 25 MG CAPSULE (FP) PO PRN ×3 (09:54→21:56)
[2021-12-25] MEDS: LIDOCAINE 5% TOPICAL PATCH TP SCH (09:54)
[2021-12-25] MEDS: NICOTINE 14 MG/24 HOURS TOPICAL PATCH TD SCH (09:54)
[2021-12-25] MEDS: NICOTINE 10 MG CARTRIDGE (INHALER) IH PRN ×3 (11:55→21:56)
[2021-12-25] MEDS: THIAMINE HCL 100 MG TABLET (FP) PO SCH (21:55)
[2021-12-25] MEDS: MELATONIN 5 MG TABLETS PO SCH (21:56)
[2021-12-25] MEDS: QUEtiapine FUMARATE 100 MG TABLET (FP) PO SCH (21:56)
[2021-12-25] MEDS: LIDOCAINE PATCH REMOVAL MC SCH (21:56)
[2021-12-26] MEDS: PRENATAL VITAMINS W/ FOLIC ACID TABLET (FP) PO SCH (10:34)
[2021-12-26] MEDS: NICOTINE 14 MG/24 HOURS TOPICAL PATCH TD SCH (10:35)
[2021-12-26] MEDS: SERTRALINE HCL 50 MG TABLET (FP) PO SCH (10:35)
[2021-12-26] MEDS: MINERAL OIL/PETROLAT/WATER TOPICAL CREAM 113 GM JAR TP SCH (10:35)
[2021-12-26] MEDS: LIDOCAINE 5% TOPICAL PATCH TP SCH (10:35)
[2021-12-26] MEDS: NICOTINE 10 MG CARTRIDGE (INHALER) IH PRN ×2 (10:36→22:02)
[2021-12-26] MEDS: hydrOXYzine PAMOATE 25 MG CAPSULE (FP) PO PRN ×2 (10:36→21:59)
[2021-12-26] MEDS: PANTOPRAZOLE 20 MG TABLET PO SCH (10:36)
[2021-12-26] MEDS: LIDOCAINE PATCH REMOVAL MC SCH (21:59)
[2021-12-26] MEDS: THIAMINE HCL 100 MG TABLET (FP) PO SCH (21:59)
[2021-12-26] MEDS: QUEtiapine FUMARATE 100 MG TABLET (FP) PO SCH (21:59)
[2021-12-26] MEDS: MELATONIN 5 MG TABLETS PO SCH (21:59)
[2021-12-27] MEDS: SERTRALINE HCL 50 MG TABLET (FP) PO SCH (11:00)
[2021-12-27] MEDS: PRENATAL VITAMINS W/ FOLIC ACID TABLET (FP) PO SCH (11:00)
[2021-12-27] MEDS: PANTOPRAZOLE 20 MG TABLET PO SCH (11:01)
[2021-12-27] MEDS: hydrOXYzine PAMOATE 25 MG CAPSULE (FP) PO PRN ×2 (11:02→21:18)
[2021-12-27] MEDS: MINERAL OIL/PETROLAT/WATER TOPICAL CREAM 113 GM JAR TP SCH (11:04)
[2021-12-27] MEDS: NICOTINE 14 MG/24 HOURS TOPICAL PATCH TD SCH (11:05)
[2021-12-27] MEDS: LIDOCAINE 5% TOPICAL PATCH TP SCH (11:05)
[2021-12-27] MEDS: NICOTINE 10 MG CARTRIDGE (INHALER) IH PRN (19:17)
[2021-12-27] MEDS: QUEtiapine FUMARATE 100 MG TABLET (FP) PO SCH (21:17)
[2021-12-27] MEDS: MELATONIN 5 MG TABLETS PO SCH (21:17)
[2021-12-27] MEDS: LIDOCAINE PATCH REMOVAL MC SCH (21:18)
[2021-12-27] MEDS: THIAMINE HCL 100 MG TABLET (FP) PO SCH (21:18)
[2021-12-27] MEDS: SELENIUM SULFIDE 2.25% 180 ML SHAMPOO TP SCH (23:48)
[2021-12-28] MEDS: PANTOPRAZOLE 20 MG TABLET PO SCH (10:49)
[2021-12-28] MEDS: PRENATAL VITAMINS W/ FOLIC ACID TABLET (FP) PO SCH (10:49)
[2021-12-28] MEDS: SERTRALINE HCL 50 MG TABLET (FP) PO SCH (10:49)
[2021-12-28] MEDS: NICOTINE 14 MG/24 HOURS TOPICAL PATCH TD SCH (10:50)
[2021-12-28] MEDS: LIDOCAINE 5% TOPICAL PATCH TP SCH (10:51)
[2021-12-28] MEDS: MINERAL OIL/PETROLAT/WATER TOPICAL CREAM 113 GM JAR TP SCH (10:52)
[2021-12-28] MEDS: SELENIUM SULFIDE 2.25% 180 ML SHAMPOO TP SCH (10:54)
[2021-12-28] MEDS: hydrOXYzine PAMOATE 25 MG CAPSULE (FP) PO PRN (10:54)
[2021-12-28] MEDS: NICOTINE 10 MG CARTRIDGE (INHALER) IH PRN (11:06)
[2021-12-28] MEDS: QUEtiapine FUMARATE 100 MG TABLET (FP) PO SCH (21:29)
[2021-12-28] MEDS: LIDOCAINE PATCH REMOVAL MC SCH (21:29)
[2021-12-28] MEDS: THIAMINE HCL 100 MG TABLET (FP) PO SCH (21:29)
[2021-12-28] MEDS: SUVOREXANT 10 MG TABLET PO PRN (21:30)
[2021-12-29] MEDS: NICOTINE 10 MG CARTRIDGE (INHALER) IH PRN ×2 (06:07→21:18)
[2021-12-29 08:08] LABS: SARS-CoV-2 NAA Not Detected (Not Detected)
[2021-12-29] MEDS: NICOTINE 14 MG/24 HOURS TOPICAL PATCH TD SCH (10:50)
[2021-12-29] MEDS: SERTRALINE HCL 50 MG TABLET (FP) PO SCH (10:50)
[2021-12-29] MEDS: PANTOPRAZOLE 20 MG TABLET PO SCH (10:50)
[2021-12-29] MEDS: LIDOCAINE 5% TOPICAL PATCH TP SCH (10:50)
[2021-12-29] MEDS: PRENATAL VITAMINS W/ FOLIC ACID TABLET (FP) PO SCH (10:50)
[2021-12-29] MEDS: MINERAL OIL/PETROLAT/WATER TOPICAL CREAM 113 GM JAR TP SCH (10:51)
[2021-12-29] MEDS: hydrOXYzine PAMOATE 25 MG CAPSULE (FP) PO PRN ×2 (10:51→21:14)
[2021-12-29] MEDS: SELENIUM SULFIDE 2.25% 180 ML SHAMPOO TP SCH (10:52)
[2021-12-29] MEDS: COLLOIDAL OATMEAL 1 BAR EACH TP PRN (10:54)
[2021-12-29] MEDS: QUEtiapine FUMARATE 100 MG TABLET (FP) PO SCH (21:14)
[2021-12-29] MEDS: LIDOCAINE PATCH REMOVAL MC SCH (21:14)
[2021-12-29] MEDS: THIAMINE HCL 100 MG TABLET (FP) PO SCH (21:14)
[2021-12-29] MEDS: SUVOREXANT 10 MG TABLET PO PRN (21:15)
[2021-12-30] MEDS: NICOTINE 10 MG CARTRIDGE (INHALER) IH PRN ×2 (09:01→21:32)
[2021-12-30] MEDS: LIDOCAINE 5% TOPICAL PATCH TP SCH (09:03)
[2021-12-30] MEDS: PANTOPRAZOLE 20 MG TABLET PO SCH (09:03)
[2021-12-30] MEDS: hydrOXYzine PAMOATE 25 MG CAPSULE (FP) PO PRN (09:03)
[2021-12-30] MEDS: PRENATAL VITAMINS W/ FOLIC ACID TABLET (FP) PO SCH (09:03)
[2021-12-30] MEDS: SERTRALINE HCL 50 MG TABLET (FP) PO SCH (09:03)
[2021-12-30] MEDS: SELENIUM SULFIDE 2.25% 180 ML SHAMPOO TP SCH (09:04)
[2021-12-30] MEDS: NICOTINE 14 MG/24 HOURS TOPICAL PATCH TD SCH (09:04)
[2021-12-30] MEDS: MINERAL OIL/PETROLAT/WATER TOPICAL CREAM 113 GM JAR TP SCH (09:04)
[2021-12-30] MEDS: LIDOCAINE PATCH REMOVAL MC SCH (21:30)
[2021-12-30] MEDS: QUEtiapine FUMARATE 100 MG TABLET (FP) PO SCH (21:31)
[2021-12-30] MEDS: SUVOREXANT 10 MG TABLET PO PRN (21:31)
[2021-12-30] MEDS: THIAMINE HCL 100 MG TABLET (FP) PO SCH (21:32)
[2021-12-31] MEDS: NICOTINE 14 MG/24 HOURS TOPICAL PATCH TD SCH (10:50)
[2021-12-31] MEDS: PRENATAL VITAMINS W/ FOLIC ACID TABLET (FP) PO SCH (10:50)
[2021-12-31] MEDS: SERTRALINE HCL 50 MG TABLET (FP) PO SCH (10:51)
[2021-12-31] MEDS: PANTOPRAZOLE 20 MG TABLET PO SCH (10:51)
[2021-12-31] MEDS: LIDOCAINE 5% TOPICAL PATCH TP SCH (10:51)
[2021-12-31] MEDS: hydrOXYzine PAMOATE 25 MG CAPSULE (FP) PO PRN ×2 (10:52→21:38)
[2021-12-31] MEDS: NICOTINE 10 MG CARTRIDGE (INHALER) IH PRN ×2 (10:52→21:39)
[2021-12-31] MEDS: MINERAL OIL/PETROLAT/WATER TOPICAL CREAM 113 GM JAR TP SCH (10:52)
[2021-12-31] MEDS: SELENIUM SULFIDE 2.25% 180 ML SHAMPOO TP SCH (10:55)
[2021-12-31] MEDS: QUEtiapine FUMARATE 100 MG TABLET (FP) PO SCH (21:38)
[2021-12-31] MEDS: SUVOREXANT 10 MG TABLET PO PRN (21:38)
[2021-12-31] MEDS: THIAMINE HCL 100 MG TABLET (FP) PO SCH (21:38)
[2021-12-31] MEDS: LIDOCAINE PATCH REMOVAL MC SCH (21:38)
[2022-01-01] MEDS: PRENATAL VITAMINS W/ FOLIC ACID TABLET (FP) PO SCH (10:33)
[2022-01-01] MEDS: PANTOPRAZOLE 20 MG TABLET PO SCH (10:33)
[2022-01-01] MEDS: SERTRALINE HCL 50 MG TABLET (FP) PO SCH (10:33)
[2022-01-01] MEDS: hydrOXYzine PAMOATE 25 MG CAPSULE (FP) PO PRN ×3 (10:33→21:49)
[2022-01-01] MEDS: NICOTINE 14 MG/24 HOURS TOPICAL PATCH TD SCH (10:34)
[2022-01-01] MEDS: LIDOCAINE 5% TOPICAL PATCH TP SCH (10:35)
[2022-01-01] MEDS: MINERAL OIL/PETROLAT/WATER TOPICAL CREAM 113 GM JAR TP SCH (10:35)
[2022-01-01] MEDS: SELENIUM SULFIDE 2.25% 180 ML SHAMPOO TP SCH (10:35)
[2022-01-01] MEDS: SUVOREXANT 10 MG TABLET PO PRN (21:48)
[2022-01-01] MEDS: QUEtiapine FUMARATE 100 MG TABLET (FP) PO SCH (21:49)
[2022-01-01] MEDS: NICOTINE 10 MG CARTRIDGE (INHALER) IH PRN (21:49)
[2022-01-01] MEDS: LIDOCAINE PATCH REMOVAL MC SCH (21:49)
[2022-01-01] MEDS: THIAMINE HCL 100 MG TABLET (FP) PO SCH (21:49)
[2022-01-02] MEDS: SERTRALINE HCL 50 MG TABLET (FP) PO SCH (10:44)
[2022-01-02] MEDS: hydrOXYzine PAMOATE 25 MG CAPSULE (FP) PO PRN ×2 (10:45→21:09)
[2022-01-02] MEDS: PANTOPRAZOLE 20 MG TABLET PO SCH (10:45)
[2022-01-02] MEDS: PRENATAL VITAMINS W/ FOLIC ACID TABLET (FP) PO SCH (10:45)
[2022-01-02] MEDS: NICOTINE 14 MG/24 HOURS TOPICAL PATCH TD SCH (10:45)
[2022-01-02] MEDS: SELENIUM SULFIDE 2.25% 180 ML SHAMPOO TP SCH (10:46)
[2022-01-02] MEDS: LIDOCAINE 5% TOPICAL PATCH TP SCH (10:46)
[2022-01-02] MEDS: MINERAL OIL/PETROLAT/WATER TOPICAL CREAM 113 GM JAR TP SCH (10:46)
[2022-01-02] MEDS: QUEtiapine FUMARATE 100 MG TABLET (FP) PO SCH (21:08)
[2022-01-02] MEDS: LIDOCAINE PATCH REMOVAL MC SCH (21:08)
[2022-01-02] MEDS: THIAMINE HCL 100 MG TABLET (FP) PO SCH (21:09)
[2022-01-02] MEDS: NICOTINE 10 MG CARTRIDGE (INHALER) IH PRN (21:09)
[2022-01-02] MEDS: SUVOREXANT 10 MG TABLET PO PRN (21:09)
[2022-01-03] MEDS: SERTRALINE HCL 50 MG TABLET (FP) PO SCH (10:58)
[2022-01-03] MEDS: PRENATAL VITAMINS W/ FOLIC ACID TABLET (FP) PO SCH (10:58)
[2022-01-03] MEDS: NICOTINE 14 MG/24 HOURS TOPICAL PATCH TD SCH (10:58)
[2022-01-03] MEDS: PANTOPRAZOLE 20 MG TABLET PO SCH (10:59)
[2022-01-03] MEDS: hydrOXYzine PAMOATE 25 MG CAPSULE (FP) PO PRN ×2 (10:59→21:19)
[2022-01-03] MEDS: LIDOCAINE 5% TOPICAL PATCH TP SCH (11:00)
[2022-01-03] MEDS: SELENIUM SULFIDE 2.25% 180 ML SHAMPOO TP SCH (11:00)
[2022-01-03] MEDS: MINERAL OIL/PETROLAT/WATER TOPICAL CREAM 113 GM JAR TP SCH (11:00)
[2022-01-03] MEDS: SUVOREXANT 10 MG TABLET PO PRN ×2 (21:19)
[2022-01-03] MEDS: QUEtiapine FUMARATE 100 MG TABLET (FP) PO SCH (21:19)
[2022-01-03] MEDS: THIAMINE HCL 100 MG TABLET (FP) PO SCH (21:19)
[2022-01-03] MEDS: LIDOCAINE PATCH REMOVAL MC SCH (21:19)
[2022-01-03] MEDS: NICOTINE 10 MG CARTRIDGE (INHALER) IH PRN (21:21)
[2022-01-04] MEDS: PRENATAL VITAMINS W/ FOLIC ACID TABLET (FP) PO SCH (10:54)
[2022-01-04] MEDS: SERTRALINE HCL 50 MG TABLET (FP) PO SCH (10:54)
[2022-01-04] MEDS: NICOTINE 14 MG/24 HOURS TOPICAL PATCH TD SCH (10:55)
[2022-01-04] MEDS: hydrOXYzine PAMOATE 25 MG CAPSULE (FP) PO PRN ×2 (10:55→21:18)
[2022-01-04] MEDS: PANTOPRAZOLE 20 MG TABLET PO SCH (10:55)
[2022-01-04] MEDS: LIDOCAINE 5% TOPICAL PATCH TP SCH (10:55)
[2022-01-04] MEDS: MINERAL OIL/PETROLAT/WATER TOPICAL CREAM 113 GM JAR TP SCH (10:57)
[2022-01-04] MEDS: QUEtiapine FUMARATE 100 MG TABLET (FP) PO SCH (21:18)
[2022-01-04] MEDS: THIAMINE HCL 100 MG TABLET (FP) PO SCH (21:18)
[2022-01-04] MEDS: SUVOREXANT 10 MG TABLET PO PRN (21:18)
[2022-01-04] MEDS: NICOTINE 10 MG CARTRIDGE (INHALER) IH PRN (21:19)
[2022-01-04] MEDS: LIDOCAINE PATCH REMOVAL MC SCH (21:19)
[2022-01-05] MEDS: PRENATAL VITAMINS W/ FOLIC ACID TABLET (FP) PO SCH (11:09)
[2022-01-05] MEDS: SERTRALINE HCL 50 MG TABLET (FP) PO SCH (11:10)
[2022-01-05] MEDS: LIDOCAINE 5% TOPICAL PATCH TP SCH (11:10)
[2022-01-05] MEDS: NICOTINE 14 MG/24 HOURS TOPICAL PATCH TD SCH (11:10)
[2022-01-05] MEDS: PANTOPRAZOLE 20 MG TABLET PO SCH (11:10)
[2022-01-05] MEDS: hydrOXYzine PAMOATE 25 MG CAPSULE (FP) PO PRN ×2 (11:10→21:35)
[2022-01-05] MEDS: MINERAL OIL/PETROLAT/WATER TOPICAL CREAM 113 GM JAR TP SCH (11:11)
[2022-01-05] MEDS: THIAMINE HCL 100 MG TABLET (FP) PO SCH (21:35)
[2022-01-05] MEDS: QUEtiapine FUMARATE 100 MG TABLET (FP) PO SCH (21:35)
[2022-01-05] MEDS: NICOTINE 10 MG CARTRIDGE (INHALER) IH PRN (21:35)
[2022-01-05] MEDS: SUVOREXANT 10 MG TABLET PO PRN (21:36)
[2022-01-05] MEDS: LIDOCAINE PATCH REMOVAL MC SCH (21:36)
[2022-01-06] MEDS: SERTRALINE HCL 50 MG TABLET (FP) PO SCH (10:30)
[2022-01-06] MEDS: LIDOCAINE 5% TOPICAL PATCH TP SCH (10:30)
[2022-01-06] MEDS: PANTOPRAZOLE 20 MG TABLET PO SCH (10:30)
[2022-01-06] MEDS: PRENATAL VITAMINS W/ FOLIC ACID TABLET (FP) PO SCH (10:30)
[2022-01-06] MEDS: hydrOXYzine PAMOATE 25 MG CAPSULE (FP) PO PRN ×2 (10:30→21:11)
[2022-01-06] MEDS: NICOTINE 14 MG/24 HOURS TOPICAL PATCH TD SCH (10:32)
[2022-01-06] MEDS: MINERAL OIL/PETROLAT/WATER TOPICAL CREAM 113 GM JAR TP SCH (10:32)
[2022-01-06] MEDS: THIAMINE HCL 100 MG TABLET (FP) PO SCH (21:11)
[2022-01-06] MEDS: QUEtiapine FUMARATE 100 MG TABLET (FP) PO SCH (21:11)
[2022-01-06] MEDS: LIDOCAINE PATCH REMOVAL MC SCH (21:11)
[2022-01-06] MEDS: NICOTINE 10 MG CARTRIDGE (INHALER) IH PRN (21:12)
[2022-01-06] MEDS ORDERED: SUVOREXANT 10 MG TABLET PO PRN (22:00)
[2022-01-07 08:01] VITALS: BP 119/70; PULSE 89; TEMP 98.2
[2022-01-07] MEDS: PANTOPRAZOLE 20 MG TABLET PO SCH (09:09)
[2022-01-07] MEDS: LIDOCAINE 5% TOPICAL PATCH TP SCH (09:10)
[2022-01-07] MEDS: NICOTINE 14 MG/24 HOURS TOPICAL PATCH TD SCH (09:10)
[2022-01-07] MEDS: SERTRALINE HCL 50 MG TABLET (FP) PO SCH (09:10)
[2022-01-07] MEDS: PRENATAL VITAMINS W/ FOLIC ACID TABLET (FP) PO SCH (09:10)
[2022-01-07] MEDS: hydrOXYzine PAMOATE 25 MG CAPSULE (FP) PO PRN (09:12)
[2022-01-07] MEDS: MINERAL OIL/PETROLAT/WATER TOPICAL CREAM 113 GM JAR TP SCH (09:13)
== END 2022-01-07 09:25 | disposition home or self-care (01) | DRG 772 ==
LOC: YASAS 12:34 → Y5N 12:35
PROVIDERS: ADMIT Allergy & Immunology; ATTEND Allergy & Immunology
PROC: HZ42ZZZ Group Counseling for Substance Abuse Treatment, Cognitive-Behavioral (ICD-10-PCS; principal; 2021-12-24)
DX: F10.20 Alcohol dependence, uncomplicated (principal); F14.20 Cocaine dependence, uncomplicated; F17.210 Nicotine dependence, cigarettes, uncomplicated; F19.282 Other psychoactive substance dependence with psychoactive substance-induced sleep disorder; F19.280 Other psychoactive substance dependence with psychoactive substance-induced anxiety disorder; F39 Unspecified mood [affective] disorder; M41.9 Scoliosis, unspecified; K21.9 Gastro-esophageal reflux disease without esophagitis
CPT/HCPCS: 82962; C9803-CS; U0003; U0005

== ENCOUNTER 2022-05-10 12:17 | Inpatient (IN) | payer OTHER ==
[2022-05-10 12:58] VITALS: BMI 22.4
[2022-05-10] MEDS ORDERED: DICYCLOMINE HCL 10 MG CAPSULE PO PRN (13:23)
[2022-05-10] MEDS ORDERED: IBUPROFEN 400 MG TABLET (FP) PO PRN (13:23)
[2022-05-10] MEDS ORDERED: BISMUTH SUBSALICYLATE 262 MG/15 ML BTL PO PRN (13:23)
[2022-05-10] MEDS ORDERED: ACETAMINOPHEN 325 MG TABLET (FP) PO PRN ×2 (13:23)
[2022-05-10] MEDS ORDERED: LOPERAMIDE HCL 2 MG CAPSULE PO PRN (13:23)
[2022-05-10] MEDS ORDERED: MAG HYDROX/AL HYDROX/SIMETH 30 ML UNIT-DOSE CUP PO PRN (13:23)
[2022-05-10] MEDS ORDERED: MAGNESIUM CITRATE 300 ML BOTTLE PO PRN (13:23)
[2022-05-10] MEDS ORDERED: IBUPROFEN 600 MG TABLET (FP) PO PRN (13:23)
[2022-05-10] MEDS ORDERED: BENZOCAINE/MENTHOL (CHLORASEPTIC ) LOZENGE MM PRN (13:23)
[2022-05-10] MEDS ORDERED: MAGNESIUM HYDROX 2400MG/30ML ORAL SUSPENSION 30 ML CUP PO PRN (13:23)
[2022-05-10] MEDS ORDERED: diazePAM 5 MG TABLET PO PRN (13:52)
[2022-05-10] MEDS: hydrOXYzine PAMOATE 25 MG CAPSULE (FP) PO SCH ×3 (15:07→22:17)
[2022-05-10] MEDS: PRENATAL VITAMINS W/ FOLIC ACID TABLET (FP) PO SCH (15:07)
[2022-05-10] MEDS: FAMOTIDINE 20 MG TABLET PO SCH (15:07)
[2022-05-10 16:57] LABS: CALCIUM 9.1 mg/dL (8.5-10.1)
[2022-05-10 16:58] LABS: ALBUMIN 4.2 g/dl (3.4-5.0); BLOOD UREA NITROGEN 7.3 mg/dL (7-18)
[2022-05-10 17:01] LABS: CREATININE 0.7 mg/dL (0.55-1.3)
[2022-05-10 17:02] LABS: TOT PROT 8.5 g/dl (6.4-8.2)
[2022-05-10 17:03] LABS: BILIRUBIN,TOTAL 0.3 mg/dL (0.2-1)
[2022-05-10 17:06] LABS: HEMATOCRIT 37.5 % (32.4-45.2); HEMOGLOBIN 12.6 GM/dL (10.7-15.3); MCH 33.1 pg (25.7-33.7); MCHC 33.5 g/dl (32.0-36.0); MEAN CELL VOLUME 98.8 fl (80-96); MEAN PLT VOLUME 6.5 fl (7.5-11.1); PLATELET COUNT 327 10^3/uL (134-434); RDW 15.7 % (11.6-15.6); WHITE BLOOD COUNT 3.3 K/mm3 (4.0-10.0)
[2022-05-10] MEDS: METHOCARBAMOL 500 MG TABLET PO PRN (17:24)
[2022-05-10] MEDS: diazePAM 5 MG TABLET PO SCH ×2 (17:25→22:18)
[2022-05-10] MEDS ORDERED: MELATONIN 5 MG TABLETS PO SCH (22:00)
[2022-05-10] MEDS: THIAMINE HCL 100 MG TABLET (FP) PO SCH (22:17)
[2022-05-11] MEDS: diazePAM 5 MG TABLET PO SCH ×4 (04:59→22:30)
[2022-05-11] MEDS: ONDANSETRON *ODT* 4 MG TABLET SL PRN ×2 (04:59→14:55)
[2022-05-11] MEDS: hydrOXYzine PAMOATE 25 MG CAPSULE (FP) PO SCH ×5 (05:00→22:31)
[2022-05-11] MEDS: PRENATAL VITAMINS W/ FOLIC ACID TABLET (FP) PO SCH (10:42)
[2022-05-11] MEDS: FAMOTIDINE 20 MG TABLET PO SCH (10:43)
[2022-05-11] MEDS: METHOCARBAMOL 500 MG TABLET PO PRN ×2 (10:43→18:04)
[2022-05-11] MEDS: SERTRALINE HCL 50 MG TABLET (FP) PO SCH (10:45)
[2022-05-11] MEDS: ARIPiprazole 10 MG TABLET PO SCH (10:46)
[2022-05-11] MEDS: GABAPENTIN 300 MG CAPSULE PO SCH (13:11)
[2022-05-11] MEDS: QUEtiapine FUMARATE 200 MG TABLET PO SCH (22:30)
[2022-05-11] MEDS: THIAMINE HCL 100 MG TABLET (FP) PO SCH (22:30)
[2022-05-12] MEDS: GABAPENTIN 300 MG CAPSULE PO SCH ×4 (00:23→22:49)
[2022-05-12] MEDS: hydrOXYzine PAMOATE 25 MG CAPSULE (FP) PO SCH ×5 (05:20→22:49)
[2022-05-12] MEDS ORDERED: diazePAM 5 MG TABLET PO SCH (06:00)
[2022-05-12] MEDS: ARIPiprazole 10 MG TABLET PO SCH (10:05)
[2022-05-12] MEDS: SERTRALINE HCL 50 MG TABLET (FP) PO SCH (10:06)
[2022-05-12] MEDS: FAMOTIDINE 20 MG TABLET PO SCH (10:06)
[2022-05-12] MEDS: PRENATAL VITAMINS W/ FOLIC ACID TABLET (FP) PO SCH (10:08)
[2022-05-12] MEDS ORDERED: LORazepam 1 MG TABLET PO PRN (10:18)
[2022-05-12] MEDS: amLODIPine BESYLATE 5 MG TABLET (FP) PO SCH (10:41)
[2022-05-12] MEDS: NICOTINE 10 MG CARTRIDGE (INHALER) IH PRN (13:45)
[2022-05-12] MEDS: LORazepam 1 MG TABLET PO SCH ×2 (18:32→22:49)
[2022-05-12] MEDS: METHOCARBAMOL 500 MG TABLET PO PRN (18:32)
[2022-05-12] MEDS: QUEtiapine FUMARATE 200 MG TABLET PO SCH (22:49)
[2022-05-12] MEDS: THIAMINE HCL 100 MG TABLET (FP) PO SCH (22:49)
[2022-05-13] MEDS ORDERED: MELATONIN 5 MG TABLETS PO ONE (01:55)
[2022-05-13] MEDS: METHOCARBAMOL 500 MG TABLET PO PRN ×2 (02:20→17:53)
[2022-05-13] MEDS ORDERED: diazePAM 5 MG TABLET PO SCH (06:00)
[2022-05-13] MEDS: LORazepam 0.5 MG TABLET PO SCH ×4 (07:53→22:23)
[2022-05-13] MEDS: hydrOXYzine PAMOATE 25 MG CAPSULE (FP) PO SCH ×5 (07:53→22:23)
[2022-05-13] MEDS: GABAPENTIN 300 MG CAPSULE PO SCH ×3 (07:53→22:23)
[2022-05-13] MEDS: PRENATAL VITAMINS W/ FOLIC ACID TABLET (FP) PO SCH (10:32)
[2022-05-13] MEDS: FAMOTIDINE 20 MG TABLET PO SCH (10:32)
[2022-05-13] MEDS: SERTRALINE HCL 50 MG TABLET (FP) PO SCH (10:32)
[2022-05-13] MEDS: amLODIPine BESYLATE 5 MG TABLET (FP) PO SCH (10:32)
[2022-05-13] MEDS: ARIPiprazole 10 MG TABLET PO SCH (10:33)
[2022-05-13] MEDS: QUEtiapine FUMARATE 200 MG TABLET PO SCH (22:23)
[2022-05-13] MEDS: THIAMINE HCL 100 MG TABLET (FP) PO SCH (22:24)
[2022-05-13] MEDS: LACTULOSE 20 GM/30 ML UDC (FOR ORAL USE ONLY) PO SCH (22:24)
[2022-05-14] MEDS: METHOCARBAMOL 500 MG TABLET PO PRN ×3 (02:13→18:07)
[2022-05-14] MEDS ORDERED: LORazepam 0.5 MG TABLET PO ONE (05:00)
[2022-05-14] MEDS: GABAPENTIN 300 MG CAPSULE PO SCH ×3 (05:42→22:50)
[2022-05-14] MEDS: hydrOXYzine PAMOATE 25 MG CAPSULE (FP) PO SCH ×5 (05:42→22:50)
[2022-05-14] MEDS ORDERED: diazePAM 5 MG TABLET PO ONE (06:00)
[2022-05-14] MEDS: SERTRALINE HCL 50 MG TABLET (FP) PO SCH (10:32)
[2022-05-14] MEDS: LACTULOSE 20 GM/30 ML UDC (FOR ORAL USE ONLY) PO SCH (10:33)
[2022-05-14] MEDS: PRENATAL VITAMINS W/ FOLIC ACID TABLET (FP) PO SCH (10:33)
[2022-05-14] MEDS: ARIPiprazole 10 MG TABLET PO SCH (10:33)
[2022-05-14] MEDS: FAMOTIDINE 20 MG TABLET PO SCH (10:33)
[2022-05-14] MEDS: amLODIPine BESYLATE 5 MG TABLET (FP) PO SCH (10:33)
[2022-05-14] MEDS: NICOTINE 10 MG CARTRIDGE (INHALER) IH PRN ×2 (10:39→18:07)
[2022-05-14] MEDS ORDERED: LACTULOSE 20 GM/30 ML UDC (FOR ORAL USE ONLY) PO PRN (16:58)
[2022-05-14] MEDS: QUEtiapine FUMARATE 200 MG TABLET PO SCH (22:49)
[2022-05-14] MEDS: THIAMINE HCL 100 MG TABLET (FP) PO SCH (22:50)
[2022-05-15] MEDS ORDERED: MELATONIN 5 MG TABLETS PO ONE (01:31)
[2022-05-15] MEDS: hydrOXYzine PAMOATE 25 MG CAPSULE (FP) PO SCH ×5 (05:53→22:19)
[2022-05-15] MEDS: GABAPENTIN 300 MG CAPSULE PO SCH ×3 (05:53→22:20)
[2022-05-15] MEDS ORDERED: ARIPiprazole 5 MG TABLET ONE (09:15)
[2022-05-15 10:33] LABS: ALBUMIN 4.3 g/dl (3.4-5.0); BLOOD UREA NITROGEN 10.8 mg/dL (7-18); CALCIUM 10.1 mg/dL (8.5-10.1)
[2022-05-15 10:36] LABS: CREATININE 0.9 mg/dL (0.55-1.3)
[2022-05-15 10:37] LABS: TOT PROT 8.5 g/dl (6.4-8.2)
[2022-05-15] MEDS: amLODIPine BESYLATE 5 MG TABLET (FP) PO SCH (10:37)
[2022-05-15] MEDS: FAMOTIDINE 20 MG TABLET PO SCH (10:37)
[2022-05-15] MEDS: SERTRALINE HCL 50 MG TABLET (FP) PO SCH (10:37)
[2022-05-15] MEDS: PRENATAL VITAMINS W/ FOLIC ACID TABLET (FP) PO SCH (10:37)
[2022-05-15 10:38] LABS: BILIRUBIN,TOTAL 0.6 mg/dL (0.2-1)
[2022-05-15] MEDS: ARIPiprazole 10 MG TABLET PO SCH (10:38)
[2022-05-15 18:43] VITALS: RESP 18
[2022-05-15] MEDS: QUEtiapine FUMARATE 200 MG TABLET PO SCH (22:19)
[2022-05-15] MEDS: THIAMINE HCL 100 MG TABLET (FP) PO SCH (22:19)
[2022-05-15] MEDS: METHOCARBAMOL 500 MG TABLET PO PRN (22:20)
[2022-05-16] MEDS: GABAPENTIN 300 MG CAPSULE PO SCH (06:05)
[2022-05-16] MEDS: hydrOXYzine PAMOATE 25 MG CAPSULE (FP) PO SCH ×2 (06:05→09:41)
[2022-05-16 09:25] VITALS: BP 126/73; PULSE 89; TEMP 97.5
[2022-05-16] MEDS ORDERED: ARIPiprazole 5 MG TABLET ONE (09:39)
[2022-05-16] MEDS: SERTRALINE HCL 50 MG TABLET (FP) PO SCH (09:40)
[2022-05-16] MEDS: ARIPiprazole 10 MG TABLET PO SCH (09:40)
[2022-05-16] MEDS: FAMOTIDINE 20 MG TABLET PO SCH (09:41)
[2022-05-16] MEDS: PRENATAL VITAMINS W/ FOLIC ACID TABLET (FP) PO SCH (09:41)
[2022-05-16] MEDS: amLODIPine BESYLATE 5 MG TABLET (FP) PO SCH (09:41)
[2022-05-16] MEDS ORDERED: LACTULOSE 20 GM/30 ML UDC (FOR ORAL USE ONLY) PO SCH (14:00)
== END 2022-05-16 10:18 | disposition home or self-care (01) | DRG 774 ==
LOC: YASAS 12:17 → SUATTDRO 12:17 → Y6N 14:24
PROVIDERS: ADMIT Allergy & Immunology; ATTEND Psychiatry & Neurology Pain Medicine
PROC: HZ2ZZZZ Detoxification Services for Substance Abuse Treatment (ICD-10-PCS; principal; 2022-05-10)
DX: F10.230 Alcohol dependence with withdrawal, uncomplicated (principal); F14.20 Cocaine dependence, uncomplicated; F17.210 Nicotine dependence, cigarettes, uncomplicated; F25.1 Schizoaffective disorder, depressive type; F31.81 Bipolar II disorder; F19.24 Other psychoactive substance dependence with psychoactive substance-induced mood disorder; F19.282 Other psychoactive substance dependence with psychoactive substance-induced sleep disorder; F19.280 Other psychoactive substance dependence with psychoactive substance-induced anxiety disorder; I10 Essential (primary) hypertension; K21.9 Gastro-esophageal reflux disease without esophagitis; R74.01 Elevation of levels of liver transaminase levels; E72.20 Disorder of urea cycle metabolism, unspecified; R73.09 Other abnormal glucose; M41.9 Scoliosis, unspecified; N83.209 Unspecified ovarian cyst, unspecified side; R00.0 Tachycardia, unspecified; Z56.0 Unemployment, unspecified
CPT/HCPCS: 36415; 80053; 81025; 82140; 82962; 84703; 85027; 86780; C9803-CS; Q0162; U0003; U0005

== ENCOUNTER 2022-06-27 12:52 | Inpatient (IN) | payer OTHER ==
[2022-06-27 14:26] VITALS: BMI 23.8
[2022-06-27] MEDS ORDERED: TRIMETHOBENZAMIDE HCL 200MG/2ML INJ IM ONE ×2 (14:29→15:05)
[2022-06-27] MEDS ORDERED: LOPERAMIDE HCL 2 MG CAPSULE PO PRN (16:18)
[2022-06-27] MEDS ORDERED: DICYCLOMINE HCL 10 MG CAPSULE PO PRN (16:18)
[2022-06-27] MEDS ORDERED: IBUPROFEN 400 MG TABLET (FP) PO PRN (16:18)
[2022-06-27] MEDS ORDERED: chlordiazePOXIDE HCL 25 MG CAPSULE PO PRN (16:18)
[2022-06-27] MEDS ORDERED: MAGNESIUM HYDROX 2400MG/30ML ORAL SUSPENSION 30 ML CUP PO PRN (16:18)
[2022-06-27] MEDS ORDERED: BISMUTH SUBSALICYLATE 524 MG/30 ML PO PRN (16:18)
[2022-06-27] MEDS ORDERED: MAGNESIUM CITRATE 300 ML BOTTLE PO PRN (16:18)
[2022-06-27] MEDS ORDERED: MAG HYDROX/AL HYDROX/SIMETH 30 ML UNIT-DOSE CUP PO PRN (16:18)
[2022-06-27] MEDS ORDERED: BENZOCAINE/MENTHOL (CHLORASEPTIC ) LOZENGE MM PRN (16:18)
[2022-06-27] MEDS ORDERED: ACETAMINOPHEN 325 MG TABLET (FP) PO PRN ×2 (16:18)
[2022-06-27] MEDS ORDERED: NALOXONE HCL (KLOXXADO) 8 MG SPRAY NS PRN (16:18)
[2022-06-27] MEDS ORDERED: IBUPROFEN 600 MG TABLET (FP) PO PRN (16:18)
[2022-06-27] MEDS ORDERED: ONDANSETRON *ODT* 4 MG TABLET SL PRN (16:18)
[2022-06-27] MEDS ORDERED: MULTIVITAMINS (DAILY MVI) TABLET (FP) PO SCH (16:45)
[2022-06-27] MEDS: METHOCARBAMOL 500 MG TABLET PO PRN (17:09)
[2022-06-27] MEDS: hydrOXYzine PAMOATE 25 MG CAPSULE (FP) PO SCH ×2 (17:09→22:12)
[2022-06-27] MEDS: PRENATAL VITAMINS W/ FOLIC ACID TABLET (FP) PO SCH (17:09)
[2022-06-27] MEDS: chlordiazePOXIDE HCL 25 MG CAPSULE PO SCH ×2 (17:10→22:11)
[2022-06-27] MEDS: NICOTINE 7 MG/24 HOURS TOPICAL PATCH TD SCH (17:17)
[2022-06-27] MEDS ORDERED: MELATONIN 5 MG TABLETS PO SCH (22:00)
[2022-06-27] MEDS: THIAMINE HCL 100 MG TABLET (FP) PO SCH (22:12)
[2022-06-28] MEDS: chlordiazePOXIDE HCL 25 MG CAPSULE PO SCH ×4 (05:39→22:05)
[2022-06-28] MEDS: hydrOXYzine PAMOATE 25 MG CAPSULE (FP) PO SCH ×5 (05:39→22:05)
[2022-06-28] MEDS ORDERED: BISMUTH SUBSALICYLATE 262 MG/15 ML BTL PO ONE (09:43)
[2022-06-28] MEDS ORDERED: DICYCLOMINE HCL 10 MG CAPSULE PO ONE (09:44)
[2022-06-28] MEDS: NICOTINE 7 MG/24 HOURS TOPICAL PATCH TD SCH (10:45)
[2022-06-28] MEDS: PRENATAL VITAMINS W/ FOLIC ACID TABLET (FP) PO SCH (10:45)
[2022-06-28] MEDS: METHOCARBAMOL 500 MG TABLET PO PRN (10:46)
[2022-06-28 11:34] LABS: ALBUMIN 3.7 g/dl (3.4-5.0); CALCIUM 9.1 mg/dL (8.5-10.1)
[2022-06-28 11:35] LABS: BLOOD UREA NITROGEN 12.2 mg/dL (7-18); HEMOGLOBIN 11.4 GM/dL (10.7-15.3); MCH 34.1 pg (25.7-33.7); MCHC 34.5 g/dl (32.0-36.0); MEAN PLT VOLUME 7.5 fl (7.5-11.1); PLATELET COUNT 143 10^3/uL (134-434); RBC 3.33 M/mm3 (3.60-5.2); RDW 15.6 % (11.6-15.6); WHITE BLOOD COUNT 4.6 K/mm3 (4.0-10.0)
[2022-06-28 11:38] LABS: CREATININE 0.6 mg/dL (0.55-1.3)
[2022-06-28 11:40] LABS: BILIRUBIN,TOTAL 1.3 mg/dL (0.2-1); TOT PROT 7.6 g/dl (6.4-8.2)
[2022-06-28] MEDS: SERTRALINE HCL 50 MG TABLET (FP) PO SCH (13:07)
[2022-06-28] MEDS: GABAPENTIN 300 MG CAPSULE PO SCH ×2 (13:07→22:05)
[2022-06-28] MEDS: ARIPiprazole 15 MG TABLET PO SCH (13:07)
[2022-06-28] MEDS: NICOTINE 10 MG CARTRIDGE (INHALER) IH PRN ×2 (13:10→17:32)
[2022-06-28] MEDS: THIAMINE HCL 100 MG TABLET (FP) PO SCH (22:05)
[2022-06-28] MEDS: QUEtiapine FUMARATE 100 MG TABLET (FP) PO SCH (22:05)
[2022-06-29] MEDS: chlordiazePOXIDE HCL 25 MG CAPSULE PO SCH ×4 (06:27→22:20)
[2022-06-29] MEDS: GABAPENTIN 300 MG CAPSULE PO SCH ×3 (06:27→22:19)
[2022-06-29] MEDS: hydrOXYzine PAMOATE 25 MG CAPSULE (FP) PO SCH ×5 (06:27→22:19)
[2022-06-29] MEDS: NICOTINE 7 MG/24 HOURS TOPICAL PATCH TD SCH (10:34)
[2022-06-29] MEDS: PRENATAL VITAMINS W/ FOLIC ACID TABLET (FP) PO SCH (10:34)
[2022-06-29] MEDS: ARIPiprazole 15 MG TABLET PO SCH (10:36)
[2022-06-29] MEDS: SERTRALINE HCL 50 MG TABLET (FP) PO SCH (10:36)
[2022-06-29] MEDS ORDERED: COLLOIDAL OATMEAL 1 BAR EACH TP PRN (12:52)
[2022-06-29] MEDS: NICOTINE 10 MG CARTRIDGE (INHALER) IH PRN (13:07)
[2022-06-29] MEDS: POTASSIUM CHLORIDE TABS 20 MEQ TABLET.ER (FP) PO SCH ×2 (13:09→22:20)
[2022-06-29] MEDS: QUEtiapine FUMARATE 100 MG TABLET (FP) PO SCH (22:19)
[2022-06-29] MEDS: THIAMINE HCL 100 MG TABLET (FP) PO SCH (22:19)
[2022-06-30] MEDS ORDERED: chlordiazePOXIDE HCL 10 MG CAPSULE PO PRN
[2022-06-30] MEDS: GABAPENTIN 300 MG CAPSULE PO SCH ×3 (06:28→23:20)
[2022-06-30] MEDS: chlordiazePOXIDE HCL 10 MG CAPSULE PO SCH ×4 (06:30→23:20)
[2022-06-30] MEDS: hydrOXYzine PAMOATE 25 MG CAPSULE (FP) PO SCH ×5 (06:30→23:21)
[2022-06-30] MEDS: PRENATAL VITAMINS W/ FOLIC ACID TABLET (FP) PO SCH (10:28)
[2022-06-30] MEDS: ARIPiprazole 15 MG TABLET PO SCH (10:28)
[2022-06-30] MEDS: POTASSIUM CHLORIDE TABS 20 MEQ TABLET.ER (FP) PO SCH ×3 (10:29→23:20)
[2022-06-30] MEDS: SERTRALINE HCL 50 MG TABLET (FP) PO SCH (10:29)
[2022-06-30] MEDS: NICOTINE 7 MG/24 HOURS TOPICAL PATCH TD SCH (10:30)
[2022-06-30] MEDS: NICOTINE 10 MG CARTRIDGE (INHALER) IH PRN (10:35)
[2022-06-30] MEDS: QUEtiapine FUMARATE 100 MG TABLET (FP) PO SCH (23:20)
[2022-06-30] MEDS: THIAMINE HCL 100 MG TABLET (FP) PO SCH (23:21)
[2022-07-01] MEDS: chlordiazePOXIDE HCL 10 MG CAPSULE PO SCH ×2 (05:57→17:43)
[2022-07-01] MEDS: GABAPENTIN 300 MG CAPSULE PO SCH ×3 (05:57→22:15)
[2022-07-01] MEDS: hydrOXYzine PAMOATE 25 MG CAPSULE (FP) PO SCH ×5 (05:57→22:15)
[2022-07-01] MEDS: ARIPiprazole 15 MG TABLET PO SCH (10:41)
[2022-07-01] MEDS: NICOTINE 7 MG/24 HOURS TOPICAL PATCH TD SCH (10:41)
[2022-07-01] MEDS: PRENATAL VITAMINS W/ FOLIC ACID TABLET (FP) PO SCH (10:41)
[2022-07-01] MEDS: SERTRALINE HCL 50 MG TABLET (FP) PO SCH (10:41)
[2022-07-01] MEDS: POTASSIUM CHLORIDE TABS 20 MEQ TABLET.ER (FP) PO SCH (10:41)
[2022-07-01] MEDS: METHOCARBAMOL 500 MG TABLET PO PRN (10:41)
[2022-07-01] MEDS: NICOTINE 10 MG CARTRIDGE (INHALER) IH PRN (17:44)
[2022-07-01] MEDS: QUEtiapine FUMARATE 100 MG TABLET (FP) PO SCH (22:15)
[2022-07-01] MEDS: THIAMINE HCL 100 MG TABLET (FP) PO SCH (22:15)
[2022-07-02] MEDS ORDERED: chlordiazePOXIDE HCL 10 MG CAPSULE PO ONE (05:00)
[2022-07-02] MEDS: GABAPENTIN 300 MG CAPSULE PO SCH ×2 (05:58→13:03)
[2022-07-02] MEDS: hydrOXYzine PAMOATE 25 MG CAPSULE (FP) PO SCH ×3 (05:59→13:05)
[2022-07-02] MEDS: ARIPiprazole 15 MG TABLET PO SCH (10:34)
[2022-07-02] MEDS: PRENATAL VITAMINS W/ FOLIC ACID TABLET (FP) PO SCH (10:34)
[2022-07-02] MEDS: SERTRALINE HCL 50 MG TABLET (FP) PO SCH (10:34)
[2022-07-02] MEDS: NICOTINE 7 MG/24 HOURS TOPICAL PATCH TD SCH (10:34)
[2022-07-02 13:41] VITALS: BP 110/69; PULSE 81; RESP 17; TEMP 98.1
== END 2022-07-02 13:18 | disposition other institution (70) | DRG 774 ==
LOC: YASAS 12:52 → Y6N 16:16
PROVIDERS: ADMIT Allergy & Immunology; ATTEND Family Medicine Addiction Medicine
PROC: HZ2ZZZZ Detoxification Services for Substance Abuse Treatment (ICD-10-PCS; principal; 2022-06-27)
DX: F10.230 Alcohol dependence with withdrawal, uncomplicated (principal); F14.20 Cocaine dependence, uncomplicated; F17.210 Nicotine dependence, cigarettes, uncomplicated; F19.280 Other psychoactive substance dependence with psychoactive substance-induced anxiety disorder; F19.282 Other psychoactive substance dependence with psychoactive substance-induced sleep disorder; F19.24 Other psychoactive substance dependence with psychoactive substance-induced mood disorder; F25.1 Schizoaffective disorder, depressive type; F41.8 Other specified anxiety disorders; M41.9 Scoliosis, unspecified; I10 Essential (primary) hypertension; K21.9 Gastro-esophageal reflux disease without esophagitis
CPT/HCPCS: 36415; 80053; 81025; 84132; 85027; 86780; C9803-CS; Q0162; U0003; U0005

== ENCOUNTER 2022-07-02 13:30 | Inpatient (IN) | payer OTHER ==
[2022-07-02] MEDS ORDERED: MAG HYDROX/AL HYDROX/SIMETH 30 ML UNIT-DOSE CUP PO PRN (15:00)
[2022-07-02] MEDS ORDERED: MAGNESIUM HYDROX 2400MG/30ML ORAL SUSPENSION 30 ML CUP PO PRN (15:00)
[2022-07-02] MEDS ORDERED: BENZOCAINE/MENTHOL (CHLORASEPTIC ) LOZENGE MM PRN (15:00)
[2022-07-02] MEDS ORDERED: MAGNESIUM CITRATE 300 ML BOTTLE PO PRN (15:00)
[2022-07-02] MEDS ORDERED: LOPERAMIDE HCL 2 MG CAPSULE PO PRN (15:00)
[2022-07-02] MEDS ORDERED: guaiFENesin 200 MG/10 ML 10 ML UNIT-DOSE CUPS PO PRN (15:00)
[2022-07-02] MEDS ORDERED: P-EPHED 60MG/TRIPROLIDI 2.5MG TABLET PO PRN (15:00)
[2022-07-02] MEDS ORDERED: ACETAMINOPHEN 325 MG TABLET (FP) PO PRN (15:00)
[2022-07-02] MEDS: GABAPENTIN 300 MG CAPSULE PO SCH (21:41)
[2022-07-02] MEDS: THIAMINE HCL 100 MG TABLET (FP) PO SCH (21:41)
[2022-07-02] MEDS: hydrOXYzine PAMOATE 25 MG CAPSULE (FP) PO PRN (21:43)
[2022-07-02] MEDS: QUEtiapine FUMARATE 100 MG TABLET (FP) PO SCH (21:43)
[2022-07-03] MEDS: GABAPENTIN 300 MG CAPSULE PO SCH ×3 (07:16→21:28)
[2022-07-03] MEDS ORDERED: ARIPiprazole 10 MG TABLET PO SCH (10:00)
[2022-07-03] MEDS: PRENATAL VITAMINS W/ FOLIC ACID TABLET (FP) PO SCH (10:44)
[2022-07-03] MEDS: ARIPIPRAZOLE PO SCH (10:44)
[2022-07-03] MEDS: SERTRALINE HCL 50 MG TABLET (FP) PO SCH (10:45)
[2022-07-03] MEDS: hydrOXYzine PAMOATE 25 MG CAPSULE (FP) PO PRN (21:28)
[2022-07-03] MEDS: THIAMINE HCL 100 MG TABLET (FP) PO SCH (21:28)
[2022-07-03] MEDS: QUEtiapine FUMARATE 100 MG TABLET (FP) PO SCH (21:28)
[2022-07-04] MEDS: GABAPENTIN 300 MG CAPSULE PO SCH ×3 (06:46→21:55)
[2022-07-04] MEDS: SERTRALINE HCL 50 MG TABLET (FP) PO SCH (11:52)
[2022-07-04] MEDS: PRENATAL VITAMINS W/ FOLIC ACID TABLET (FP) PO SCH (11:52)
[2022-07-04] MEDS: ARIPIPRAZOLE PO SCH (11:52)
[2022-07-04] MEDS: hydrOXYzine PAMOATE 25 MG CAPSULE (FP) PO PRN ×2 (11:53→21:55)
[2022-07-04] MEDS ORDERED: NICOTINE POLACRILEX 2 MG GUM BUC PRN (12:13)
[2022-07-04] MEDS ORDERED: COLLOIDAL OATMEAL 1 BAR EACH TP PRN (12:19)
[2022-07-04] MEDS ORDERED: LIDOCAINE 5% TOPICAL PATCH TP ONE (12:41)
[2022-07-04] MEDS: NICOTINE 14 MG/24 HOURS TOPICAL PATCH TD SCH (13:02)
[2022-07-04] MEDS: MINERAL OIL/PETROLAT/WATER TOPICAL CREAM 113 GM JAR TP SCH ×2 (13:02→13:05)
[2022-07-04] MEDS: SELENIUM SULFIDE 2.25% 180 ML SHAMPOO TP SCH ×2 (15:30→20:01)
[2022-07-04] MEDS: NICOTINE 10 MG CARTRIDGE (INHALER) IH PRN (20:00)
[2022-07-04] MEDS: LIDOCAINE PATCH REMOVAL MC SCH (21:51)
[2022-07-04] MEDS: QUEtiapine FUMARATE 200 MG TABLET PO SCH (21:54)
[2022-07-04] MEDS: SUVOREXANT 10 MG TABLET PO PRN (21:54)
[2022-07-04] MEDS: THIAMINE HCL 100 MG TABLET (FP) PO SCH (21:55)
[2022-07-04] MEDS ORDERED: LIDOCAINE PATCH REMOVAL MC SCH (22:00)
[2022-07-05] MEDS: GABAPENTIN 300 MG CAPSULE PO SCH ×3 (06:44→21:24)
[2022-07-05] MEDS: NICOTINE 14 MG/24 HOURS TOPICAL PATCH TD SCH (10:23)
[2022-07-05] MEDS: LIDOCAINE 5% TOPICAL PATCH TP SCH (10:23)
[2022-07-05] MEDS: PRENATAL VITAMINS W/ FOLIC ACID TABLET (FP) PO SCH (10:23)
[2022-07-05] MEDS: SERTRALINE HCL 50 MG TABLET (FP) PO SCH (10:24)
[2022-07-05] MEDS: ARIPIPRAZOLE PO SCH (10:24)
[2022-07-05] MEDS: hydrOXYzine PAMOATE 25 MG CAPSULE (FP) PO PRN ×2 (10:25→21:28)
[2022-07-05] MEDS: SELENIUM SULFIDE 2.25% 180 ML SHAMPOO TP SCH (10:27)
[2022-07-05] MEDS: MINERAL OIL/PETROLAT/WATER TOPICAL CREAM 113 GM JAR TP SCH (10:27)
[2022-07-05] MEDS: IBUPROFEN 400 MG TABLET (FP) PO PRN (13:46)
[2022-07-05] MEDS: LIDOCAINE PATCH REMOVAL MC SCH (21:24)
[2022-07-05] MEDS: QUEtiapine FUMARATE 200 MG TABLET PO SCH (21:24)
[2022-07-05] MEDS: THIAMINE HCL 100 MG TABLET (FP) PO SCH (21:24)
[2022-07-05] MEDS: SUVOREXANT 10 MG TABLET PO PRN (21:27)
[2022-07-06] MEDS: GABAPENTIN 300 MG CAPSULE PO SCH ×3 (06:31→22:11)
[2022-07-06] MEDS: IBUPROFEN 400 MG TABLET (FP) PO PRN (10:41)
[2022-07-06] MEDS: PRENATAL VITAMINS W/ FOLIC ACID TABLET (FP) PO SCH (10:41)
[2022-07-06] MEDS: ARIPIPRAZOLE PO SCH (10:41)
[2022-07-06] MEDS: SERTRALINE HCL 50 MG TABLET (FP) PO SCH (10:41)
[2022-07-06] MEDS: NICOTINE 14 MG/24 HOURS TOPICAL PATCH TD SCH (10:41)
[2022-07-06] MEDS: SELENIUM SULFIDE 2.25% 180 ML SHAMPOO TP SCH (10:43)
[2022-07-06] MEDS: MINERAL OIL/PETROLAT/WATER TOPICAL CREAM 113 GM JAR TP SCH (10:43)
[2022-07-06] MEDS: LIDOCAINE 5% TOPICAL PATCH TP SCH (10:44)
[2022-07-06] MEDS: NICOTINE 10 MG CARTRIDGE (INHALER) IH PRN ×2 (10:55→16:03)
[2022-07-06] MEDS: QUEtiapine FUMARATE 200 MG TABLET PO SCH (22:11)
[2022-07-06] MEDS: THIAMINE HCL 100 MG TABLET (FP) PO SCH (22:11)
[2022-07-06] MEDS: hydrOXYzine PAMOATE 25 MG CAPSULE (FP) PO PRN (22:12)
[2022-07-06] MEDS: SUVOREXANT 10 MG TABLET PO PRN (22:13)
[2022-07-06] MEDS: LIDOCAINE PATCH REMOVAL MC SCH (22:20)
[2022-07-07] MEDS: GABAPENTIN 300 MG CAPSULE PO SCH ×3 (06:29→21:50)
[2022-07-07] MEDS: ARIPIPRAZOLE PO SCH (10:45)
[2022-07-07] MEDS: PRENATAL VITAMINS W/ FOLIC ACID TABLET (FP) PO SCH (10:45)
[2022-07-07] MEDS: hydrOXYzine PAMOATE 25 MG CAPSULE (FP) PO PRN ×3 (10:45→21:51)
[2022-07-07] MEDS: SERTRALINE HCL 50 MG TABLET (FP) PO SCH (10:45)
[2022-07-07] MEDS: LIDOCAINE 5% TOPICAL PATCH TP SCH (10:46)
[2022-07-07] MEDS: NICOTINE 14 MG/24 HOURS TOPICAL PATCH TD SCH (10:46)
[2022-07-07] MEDS: SELENIUM SULFIDE 2.25% 180 ML SHAMPOO TP SCH (10:47)
[2022-07-07] MEDS: MINERAL OIL/PETROLAT/WATER TOPICAL CREAM 113 GM JAR TP SCH (10:47)
[2022-07-07] MEDS: NICOTINE 10 MG CARTRIDGE (INHALER) IH PRN (14:12)
[2022-07-07] MEDS: QUEtiapine FUMARATE 200 MG TABLET PO SCH (21:50)
[2022-07-07] MEDS: THIAMINE HCL 100 MG TABLET (FP) PO SCH (21:50)
[2022-07-07] MEDS: LIDOCAINE PATCH REMOVAL MC SCH (21:53)
[2022-07-07] MEDS: SUVOREXANT 10 MG TABLET PO PRN (21:53)
[2022-07-08] MEDS: GABAPENTIN 300 MG CAPSULE PO SCH ×3 (06:43→21:47)
[2022-07-08] MEDS: NICOTINE 10 MG CARTRIDGE (INHALER) IH PRN (08:43)
[2022-07-08] MEDS: NICOTINE 14 MG/24 HOURS TOPICAL PATCH TD SCH (11:01)
[2022-07-08] MEDS: PRENATAL VITAMINS W/ FOLIC ACID TABLET (FP) PO SCH (11:01)
[2022-07-08] MEDS: SERTRALINE HCL 50 MG TABLET (FP) PO SCH (11:02)
[2022-07-08] MEDS: ARIPIPRAZOLE PO SCH (11:02)
[2022-07-08] MEDS: LIDOCAINE 5% TOPICAL PATCH TP SCH (11:02)
[2022-07-08] MEDS: MINERAL OIL/PETROLAT/WATER TOPICAL CREAM 113 GM JAR TP SCH (11:03)
[2022-07-08] MEDS: SELENIUM SULFIDE 2.25% 180 ML SHAMPOO TP SCH (11:03)
[2022-07-08] MEDS: hydrOXYzine PAMOATE 25 MG CAPSULE (FP) PO PRN ×2 (11:04→21:48)
[2022-07-08] MEDS: THIAMINE HCL 100 MG TABLET (FP) PO SCH (21:47)
[2022-07-08] MEDS: QUEtiapine FUMARATE 200 MG TABLET PO SCH (21:47)
[2022-07-08] MEDS: SUVOREXANT 10 MG TABLET PO PRN (21:49)
[2022-07-08] MEDS: LIDOCAINE PATCH REMOVAL MC SCH (23:51)
[2022-07-09] MEDS: GABAPENTIN 300 MG CAPSULE PO SCH ×3 (06:25→22:00)
[2022-07-09] MEDS: NICOTINE 10 MG CARTRIDGE (INHALER) IH PRN ×2 (09:00→22:02)
[2022-07-09] MEDS ORDERED: ARIPiprazole 5 MG TABLET ONE (09:30)
[2022-07-09] MEDS: PRENATAL VITAMINS W/ FOLIC ACID TABLET (FP) PO SCH (10:38)
[2022-07-09] MEDS: ARIPIPRAZOLE PO SCH (10:38)
[2022-07-09] MEDS: SERTRALINE HCL 50 MG TABLET (FP) PO SCH (10:38)
[2022-07-09] MEDS: hydrOXYzine PAMOATE 25 MG CAPSULE (FP) PO PRN ×3 (10:39→22:00)
[2022-07-09] MEDS: NICOTINE 14 MG/24 HOURS TOPICAL PATCH TD SCH (10:39)
[2022-07-09] MEDS: LIDOCAINE 5% TOPICAL PATCH TP SCH (10:39)
[2022-07-09] MEDS: SELENIUM SULFIDE 2.25% 180 ML SHAMPOO TP SCH (10:39)
[2022-07-09] MEDS: MINERAL OIL/PETROLAT/WATER TOPICAL CREAM 113 GM JAR TP SCH (10:40)
[2022-07-09] MEDS: THIAMINE HCL 100 MG TABLET (FP) PO SCH (22:00)
[2022-07-09] MEDS: QUEtiapine FUMARATE 200 MG TABLET PO SCH (22:00)
[2022-07-09] MEDS: SUVOREXANT 10 MG TABLET PO PRN (22:01)
[2022-07-09] MEDS: LIDOCAINE PATCH REMOVAL MC SCH (22:34)
[2022-07-10] MEDS: GABAPENTIN 300 MG CAPSULE PO SCH ×3 (06:03→21:59)
[2022-07-10] MEDS: PRENATAL VITAMINS W/ FOLIC ACID TABLET (FP) PO SCH (10:31)
[2022-07-10] MEDS: ARIPIPRAZOLE PO SCH (10:31)
[2022-07-10] MEDS: LIDOCAINE 5% TOPICAL PATCH TP SCH (10:31)
[2022-07-10] MEDS: NICOTINE 14 MG/24 HOURS TOPICAL PATCH TD SCH (10:31)
[2022-07-10] MEDS: hydrOXYzine PAMOATE 25 MG CAPSULE (FP) PO PRN ×3 (10:31→22:00)
[2022-07-10] MEDS: SERTRALINE HCL 50 MG TABLET (FP) PO SCH (10:31)
[2022-07-10] MEDS: SELENIUM SULFIDE 2.25% 180 ML SHAMPOO TP SCH (10:32)
[2022-07-10] MEDS: MINERAL OIL/PETROLAT/WATER TOPICAL CREAM 113 GM JAR TP SCH (10:32)
[2022-07-10] MEDS: NICOTINE 10 MG CARTRIDGE (INHALER) IH PRN (10:33)
[2022-07-10] MEDS: QUEtiapine FUMARATE 200 MG TABLET PO SCH (21:59)
[2022-07-10] MEDS: THIAMINE HCL 100 MG TABLET (FP) PO SCH (21:59)
[2022-07-10] MEDS: SUVOREXANT 10 MG TABLET PO PRN (22:00)
[2022-07-10] MEDS: LIDOCAINE PATCH REMOVAL MC SCH (23:17)
[2022-07-11] MEDS: GABAPENTIN 300 MG CAPSULE PO SCH ×3 (06:20→21:44)
[2022-07-11] MEDS: NICOTINE 10 MG CARTRIDGE (INHALER) IH PRN (09:00)
[2022-07-11] MEDS: PRENATAL VITAMINS W/ FOLIC ACID TABLET (FP) PO SCH (10:54)
[2022-07-11] MEDS: hydrOXYzine PAMOATE 25 MG CAPSULE (FP) PO PRN ×2 (10:55→21:44)
[2022-07-11] MEDS: ARIPIPRAZOLE PO SCH (10:55)
[2022-07-11] MEDS: SERTRALINE HCL 50 MG TABLET (FP) PO SCH (10:55)
[2022-07-11] MEDS: LIDOCAINE 5% TOPICAL PATCH TP SCH (10:56)
[2022-07-11] MEDS: NICOTINE 14 MG/24 HOURS TOPICAL PATCH TD SCH (10:57)
[2022-07-11] MEDS: MINERAL OIL/PETROLAT/WATER TOPICAL CREAM 113 GM JAR TP SCH (10:57)
[2022-07-11] MEDS: SELENIUM SULFIDE 2.25% 180 ML SHAMPOO TP SCH (10:58)
[2022-07-11] MEDS: THIAMINE HCL 100 MG TABLET (FP) PO SCH (21:44)
[2022-07-11] MEDS: QUEtiapine FUMARATE 200 MG TABLET PO SCH (21:44)
[2022-07-11] MEDS: SUVOREXANT 10 MG TABLET PO PRN (21:44)
[2022-07-11] MEDS: LIDOCAINE PATCH REMOVAL MC SCH (21:45)
[2022-07-12] MEDS: GABAPENTIN 300 MG CAPSULE PO SCH ×3 (06:35→21:42)
[2022-07-12] MEDS: PRENATAL VITAMINS W/ FOLIC ACID TABLET (FP) PO SCH (10:22)
[2022-07-12] MEDS: LIDOCAINE 5% TOPICAL PATCH TP SCH (10:22)
[2022-07-12] MEDS: MINERAL OIL/PETROLAT/WATER TOPICAL CREAM 113 GM JAR TP SCH (10:23)
[2022-07-12] MEDS: NICOTINE 14 MG/24 HOURS TOPICAL PATCH TD SCH (10:23)
[2022-07-12] MEDS: ARIPIPRAZOLE PO SCH (10:23)
[2022-07-12] MEDS: SERTRALINE HCL 50 MG TABLET (FP) PO SCH (10:23)
[2022-07-12] MEDS: hydrOXYzine PAMOATE 25 MG CAPSULE (FP) PO PRN ×2 (10:24→21:42)
[2022-07-12] MEDS: NICOTINE 10 MG CARTRIDGE (INHALER) IH PRN ×2 (10:26→21:44)
[2022-07-12] MEDS: IBUPROFEN 400 MG TABLET (FP) PO PRN (18:05)
[2022-07-12] MEDS: THIAMINE HCL 100 MG TABLET (FP) PO SCH (21:41)
[2022-07-12] MEDS: QUEtiapine FUMARATE 200 MG TABLET PO SCH (21:42)
[2022-07-12] MEDS: LIDOCAINE PATCH REMOVAL MC SCH (21:42)
[2022-07-12] MEDS: SUVOREXANT 10 MG TABLET PO PRN (21:43)
[2022-07-13] MEDS: GABAPENTIN 300 MG CAPSULE PO SCH ×3 (06:38→21:40)
[2022-07-13] MEDS: PRENATAL VITAMINS W/ FOLIC ACID TABLET (FP) PO SCH (10:47)
[2022-07-13] MEDS: NICOTINE 14 MG/24 HOURS TOPICAL PATCH TD SCH (10:47)
[2022-07-13] MEDS: SERTRALINE HCL 50 MG TABLET (FP) PO SCH (10:47)
[2022-07-13] MEDS: NICOTINE 10 MG CARTRIDGE (INHALER) IH PRN (10:47)
[2022-07-13] MEDS: ARIPIPRAZOLE PO SCH (10:47)
[2022-07-13] MEDS: MINERAL OIL/PETROLAT/WATER TOPICAL CREAM 113 GM JAR TP SCH (10:48)
[2022-07-13] MEDS: LIDOCAINE 5% TOPICAL PATCH TP SCH (10:50)
[2022-07-13] MEDS: LIDOCAINE PATCH REMOVAL MC SCH (21:39)
[2022-07-13] MEDS: hydrOXYzine PAMOATE 25 MG CAPSULE (FP) PO PRN (21:40)
[2022-07-13] MEDS: THIAMINE HCL 100 MG TABLET (FP) PO SCH (21:40)
[2022-07-13] MEDS: QUEtiapine FUMARATE 200 MG TABLET PO SCH (21:40)
[2022-07-13] MEDS: SUVOREXANT 10 MG TABLET PO PRN (21:42)
[2022-07-14] MEDS: GABAPENTIN 300 MG CAPSULE PO SCH ×3 (06:40→21:53)
[2022-07-14] MEDS: PRENATAL VITAMINS W/ FOLIC ACID TABLET (FP) PO SCH (10:30)
[2022-07-14] MEDS: SERTRALINE HCL 50 MG TABLET (FP) PO SCH (10:31)
[2022-07-14] MEDS: ARIPIPRAZOLE PO SCH (10:31)
[2022-07-14] MEDS: LIDOCAINE 5% TOPICAL PATCH TP SCH (10:32)
[2022-07-14] MEDS: hydrOXYzine PAMOATE 25 MG CAPSULE (FP) PO PRN ×2 (10:32→21:54)
[2022-07-14] MEDS: MINERAL OIL/PETROLAT/WATER TOPICAL CREAM 113 GM JAR TP SCH (10:32)
[2022-07-14] MEDS: NICOTINE 14 MG/24 HOURS TOPICAL PATCH TD SCH (10:33)
[2022-07-14] MEDS: NICOTINE 10 MG CARTRIDGE (INHALER) IH PRN ×2 (10:34→21:55)
[2022-07-14] MEDS: QUEtiapine FUMARATE 200 MG TABLET PO SCH (21:53)
[2022-07-14] MEDS: THIAMINE HCL 100 MG TABLET (FP) PO SCH (21:53)
[2022-07-14] MEDS: SUVOREXANT 10 MG TABLET PO PRN (21:55)
[2022-07-14] MEDS: LIDOCAINE PATCH REMOVAL MC SCH (22:31)
[2022-07-15] MEDS: GABAPENTIN 300 MG CAPSULE PO SCH ×3 (06:15→21:52)
[2022-07-15] MEDS: ARIPIPRAZOLE PO SCH (10:26)
[2022-07-15] MEDS: LIDOCAINE 5% TOPICAL PATCH TP SCH (10:26)
[2022-07-15] MEDS: PRENATAL VITAMINS W/ FOLIC ACID TABLET (FP) PO SCH (10:26)
[2022-07-15] MEDS: SERTRALINE HCL 50 MG TABLET (FP) PO SCH (10:26)
[2022-07-15] MEDS: hydrOXYzine PAMOATE 25 MG CAPSULE (FP) PO PRN ×2 (10:27→21:52)
[2022-07-15] MEDS: NICOTINE 14 MG/24 HOURS TOPICAL PATCH TD SCH (10:27)
[2022-07-15] MEDS: MINERAL OIL/PETROLAT/WATER TOPICAL CREAM 113 GM JAR TP SCH (10:27)
[2022-07-15] MEDS: NICOTINE 10 MG CARTRIDGE (INHALER) IH PRN (14:35)
[2022-07-15] MEDS: THIAMINE HCL 100 MG TABLET (FP) PO SCH (21:52)
[2022-07-15] MEDS: QUEtiapine FUMARATE 200 MG TABLET PO SCH (21:52)
[2022-07-15] MEDS: LIDOCAINE PATCH REMOVAL MC SCH (21:53)
[2022-07-15] MEDS: SUVOREXANT 10 MG TABLET PO PRN (21:54)
[2022-07-16] MEDS: GABAPENTIN 300 MG CAPSULE PO SCH ×3 (06:08→22:07)
[2022-07-16] MEDS: PRENATAL VITAMINS W/ FOLIC ACID TABLET (FP) PO SCH (10:19)
[2022-07-16] MEDS: ARIPIPRAZOLE PO SCH (10:19)
[2022-07-16] MEDS: SERTRALINE HCL 50 MG TABLET (FP) PO SCH (10:20)
[2022-07-16] MEDS: LIDOCAINE 5% TOPICAL PATCH TP SCH (10:20)
[2022-07-16] MEDS: MINERAL OIL/PETROLAT/WATER TOPICAL CREAM 113 GM JAR TP SCH (10:21)
[2022-07-16] MEDS: NICOTINE 14 MG/24 HOURS TOPICAL PATCH TD SCH (10:22)
[2022-07-16] MEDS: hydrOXYzine PAMOATE 25 MG CAPSULE (FP) PO PRN ×2 (10:22→22:07)
[2022-07-16] MEDS: NICOTINE 10 MG CARTRIDGE (INHALER) IH PRN (11:07)
[2022-07-16] MEDS: QUEtiapine FUMARATE 200 MG TABLET PO SCH (22:07)
[2022-07-16] MEDS: THIAMINE HCL 100 MG TABLET (FP) PO SCH (22:07)
[2022-07-16] MEDS: SUVOREXANT 10 MG TABLET PO PRN (22:07)
[2022-07-16] MEDS: LIDOCAINE PATCH REMOVAL MC SCH (23:55)
[2022-07-17] MEDS: GABAPENTIN 300 MG CAPSULE PO SCH ×3 (07:16→21:52)
[2022-07-17] MEDS: SERTRALINE HCL 50 MG TABLET (FP) PO SCH (09:47)
[2022-07-17] MEDS: ARIPIPRAZOLE PO SCH (09:47)
[2022-07-17] MEDS: LIDOCAINE 5% TOPICAL PATCH TP SCH (09:48)
[2022-07-17] MEDS: hydrOXYzine PAMOATE 25 MG CAPSULE (FP) PO PRN ×2 (09:48→21:52)
[2022-07-17] MEDS: PRENATAL VITAMINS W/ FOLIC ACID TABLET (FP) PO SCH (09:48)
[2022-07-17] MEDS: MINERAL OIL/PETROLAT/WATER TOPICAL CREAM 113 GM JAR TP SCH (09:49)
[2022-07-17] MEDS: NICOTINE 14 MG/24 HOURS TOPICAL PATCH TD SCH (09:49)
[2022-07-17] MEDS: THIAMINE HCL 100 MG TABLET (FP) PO SCH (21:52)
[2022-07-17] MEDS: LIDOCAINE PATCH REMOVAL MC SCH (21:52)
[2022-07-17] MEDS: QUEtiapine FUMARATE 200 MG TABLET PO SCH (21:52)
[2022-07-17] MEDS: SUVOREXANT 10 MG TABLET PO PRN (21:56)
[2022-07-18] MEDS: GABAPENTIN 300 MG CAPSULE PO SCH ×3 (05:42→21:51)
[2022-07-18] MEDS: PRENATAL VITAMINS W/ FOLIC ACID TABLET (FP) PO SCH (10:13)
[2022-07-18] MEDS: SERTRALINE HCL 50 MG TABLET (FP) PO SCH (10:13)
[2022-07-18] MEDS: ARIPIPRAZOLE PO SCH (10:13)
[2022-07-18] MEDS: hydrOXYzine PAMOATE 25 MG CAPSULE (FP) PO PRN ×2 (10:14→21:51)
[2022-07-18] MEDS: NICOTINE 10 MG CARTRIDGE (INHALER) IH PRN ×2 (10:14→17:55)
[2022-07-18] MEDS: NICOTINE 14 MG/24 HOURS TOPICAL PATCH TD SCH (10:14)
[2022-07-18] MEDS: LIDOCAINE 5% TOPICAL PATCH TP SCH (10:15)
[2022-07-18] MEDS: MINERAL OIL/PETROLAT/WATER TOPICAL CREAM 113 GM JAR TP SCH (10:17)
[2022-07-18] MEDS: QUEtiapine FUMARATE 200 MG TABLET PO SCH (21:51)
[2022-07-18] MEDS: THIAMINE HCL 100 MG TABLET (FP) PO SCH (21:51)
[2022-07-18] MEDS: SUVOREXANT 10 MG TABLET PO PRN (21:52)
[2022-07-18] MEDS: LIDOCAINE PATCH REMOVAL MC SCH (22:15)
[2022-07-19] MEDS: GABAPENTIN 300 MG CAPSULE PO SCH ×3 (07:17→21:58)
[2022-07-19] MEDS: PRENATAL VITAMINS W/ FOLIC ACID TABLET (FP) PO SCH (10:28)
[2022-07-19] MEDS: NICOTINE 14 MG/24 HOURS TOPICAL PATCH TD SCH (10:29)
[2022-07-19] MEDS: LIDOCAINE 5% TOPICAL PATCH TP SCH (10:29)
[2022-07-19] MEDS: hydrOXYzine PAMOATE 25 MG CAPSULE (FP) PO PRN ×2 (10:29→21:59)
[2022-07-19] MEDS: SERTRALINE HCL 50 MG TABLET (FP) PO SCH (10:29)
[2022-07-19] MEDS: MINERAL OIL/PETROLAT/WATER TOPICAL CREAM 113 GM JAR TP SCH (10:31)
[2022-07-19] MEDS: ARIPiprazole 15 MG TABLET PO SCH (12:02)
[2022-07-19] MEDS: ARIPIPRAZOLE PO SCH (12:07)
[2022-07-19] MEDS: LIDOCAINE PATCH REMOVAL MC SCH (21:55)
[2022-07-19] MEDS: QUEtiapine FUMARATE 200 MG TABLET PO SCH (21:58)
[2022-07-19] MEDS: THIAMINE HCL 100 MG TABLET (FP) PO SCH (21:58)
[2022-07-19] MEDS: SUVOREXANT 10 MG TABLET PO PRN (22:13)
[2022-07-20] MEDS: GABAPENTIN 300 MG CAPSULE PO SCH ×3 (07:14→22:12)
[2022-07-20] MEDS: ARIPiprazole 15 MG TABLET PO SCH (10:32)
[2022-07-20] MEDS: hydrOXYzine PAMOATE 25 MG CAPSULE (FP) PO PRN ×2 (10:32→22:12)
[2022-07-20] MEDS: SERTRALINE HCL 50 MG TABLET (FP) PO SCH (10:32)
[2022-07-20] MEDS: PRENATAL VITAMINS W/ FOLIC ACID TABLET (FP) PO SCH (10:33)
[2022-07-20] MEDS: LIDOCAINE 5% TOPICAL PATCH TP SCH (10:34)
[2022-07-20] MEDS: NICOTINE 14 MG/24 HOURS TOPICAL PATCH TD SCH (10:34)
[2022-07-20] MEDS: NICOTINE 10 MG CARTRIDGE (INHALER) IH PRN (10:34)
[2022-07-20] MEDS: MINERAL OIL/PETROLAT/WATER TOPICAL CREAM 113 GM JAR TP SCH (10:36)
[2022-07-20] MEDS: SUVOREXANT 10 MG TABLET PO PRN (22:11)
[2022-07-20] MEDS: QUEtiapine FUMARATE 200 MG TABLET PO SCH (22:11)
[2022-07-20] MEDS: THIAMINE HCL 100 MG TABLET (FP) PO SCH (22:12)
[2022-07-20] MEDS: LIDOCAINE PATCH REMOVAL MC SCH (22:12)
[2022-07-21] MEDS: GABAPENTIN 300 MG CAPSULE PO SCH ×3 (05:53→21:16)
[2022-07-21] MEDS: NICOTINE 14 MG/24 HOURS TOPICAL PATCH TD SCH (10:56)
[2022-07-21] MEDS: LIDOCAINE 5% TOPICAL PATCH TP SCH (10:56)
[2022-07-21] MEDS: SERTRALINE HCL 50 MG TABLET (FP) PO SCH (10:56)
[2022-07-21] MEDS: hydrOXYzine PAMOATE 25 MG CAPSULE (FP) PO PRN ×2 (10:56→21:16)
[2022-07-21] MEDS: PRENATAL VITAMINS W/ FOLIC ACID TABLET (FP) PO SCH (10:56)
[2022-07-21] MEDS: ARIPiprazole 15 MG TABLET PO SCH (10:56)
[2022-07-21] MEDS: MINERAL OIL/PETROLAT/WATER TOPICAL CREAM 113 GM JAR TP SCH (10:58)
[2022-07-21] MEDS: NICOTINE 10 MG CARTRIDGE (INHALER) IH PRN ×2 (18:30→21:18)
[2022-07-21] MEDS: LIDOCAINE PATCH REMOVAL MC SCH (21:16)
[2022-07-21] MEDS: THIAMINE HCL 100 MG TABLET (FP) PO SCH (21:16)
[2022-07-21] MEDS: QUEtiapine FUMARATE 200 MG TABLET PO SCH (21:16)
[2022-07-22] MEDS: GABAPENTIN 300 MG CAPSULE PO SCH (06:18)
[2022-07-22 08:08] VITALS: BP 101/67; PULSE 80; RESP 16; TEMP 97.7
[2022-07-22] MEDS: MINERAL OIL/PETROLAT/WATER TOPICAL CREAM 113 GM JAR TP SCH (10:02)
[2022-07-22] MEDS: LIDOCAINE 5% TOPICAL PATCH TP SCH (10:02)
[2022-07-22] MEDS: PRENATAL VITAMINS W/ FOLIC ACID TABLET (FP) PO SCH (10:03)
[2022-07-22] MEDS: NICOTINE 14 MG/24 HOURS TOPICAL PATCH TD SCH (10:03)
[2022-07-22] MEDS: SERTRALINE HCL 50 MG TABLET (FP) PO SCH (10:04)
[2022-07-22] MEDS: ARIPiprazole 15 MG TABLET PO SCH (10:05)
== END 2022-07-22 10:15 | disposition home or self-care (01) | DRG 772 ==
LOC: YASAS 13:30 → Y5N 13:33
PROVIDERS: ADMIT Allergy & Immunology; ATTEND Surgery
PROC: HZ42ZZZ Group Counseling for Substance Abuse Treatment, Cognitive-Behavioral (ICD-10-PCS; principal; 2022-07-02)
DX: F10.20 Alcohol dependence, uncomplicated (principal); F14.20 Cocaine dependence, uncomplicated; F17.210 Nicotine dependence, cigarettes, uncomplicated; F41.9 Anxiety disorder, unspecified; F32.A Depression, unspecified; K21.9 Gastro-esophageal reflux disease without esophagitis; L30.9 Dermatitis, unspecified; M41.9 Scoliosis, unspecified; S92.511A Displaced fracture of proximal phalanx of right lesser toe(s), initial encounter for closed fracture; W01.0XXA Fall on same level from slipping, tripping and stumbling without subsequent striking against object, initial encounter; Y93.41 Activity, dancing; Y92.89 Other specified places as the place of occurrence of the external cause
CPT/HCPCS: 73630-TC-RT-FY

== ENCOUNTER 2022-09-08 11:49 | Inpatient (IN) | payer OTHER ==
[2022-09-08 12:27] VITALS: BMI 25.1
[2022-09-08] MEDS ORDERED: BENZOCAINE/MENTHOL (CHLORASEPTIC ) LOZENGE MM PRN (12:58)
[2022-09-08] MEDS ORDERED: ACETAMINOPHEN 325 MG TABLET (FP) PO PRN ×2 (12:58)
[2022-09-08] MEDS ORDERED: MAGNESIUM HYDROX 2400MG/30ML ORAL SUSPENSION 30 ML CUP PO PRN (12:58)
[2022-09-08] MEDS ORDERED: MAG HYDROX/AL HYDROX/SIMETH 30 ML UNIT-DOSE CUP PO PRN (12:58)
[2022-09-08] MEDS ORDERED: IBUPROFEN 600 MG TABLET (FP) PO PRN (12:58)
[2022-09-08] MEDS ORDERED: IBUPROFEN 400 MG TABLET (FP) PO PRN (12:58)
[2022-09-08] MEDS ORDERED: chlordiazePOXIDE HCL 25 MG CAPSULE PO PRN (12:58)
[2022-09-08] MEDS ORDERED: NICOTINE 10 MG CARTRIDGE (INHALER) IH PRN (12:58)
[2022-09-08] MEDS ORDERED: BISMUTH SUBSALICYLATE 262 MG/15 ML BTL PO PRN (12:58)
[2022-09-08] MEDS ORDERED: NICOTINE POLACRILEX 2 MG GUM BUC PRN (12:58)
[2022-09-08] MEDS ORDERED: LOPERAMIDE HCL 2 MG CAPSULE PO PRN (12:58)
[2022-09-08] MEDS ORDERED: POLYETHYLENE GLYCOL (HEALTHYLAX) 3350 17 GM PACKET PO PRN (12:58)
[2022-09-08] MEDS ORDERED: ONDANSETRON *ODT* 4 MG TABLET SL PRN (12:58)
[2022-09-08] MEDS ORDERED: DICYCLOMINE HCL 10 MG CAPSULE PO PRN (12:58)
[2022-09-08] MEDS ORDERED: COLLOIDAL OATMEAL 1 BAR EACH TP PRN (13:03)
[2022-09-08] MEDS: hydrOXYzine PAMOATE 25 MG CAPSULE (FP) PO PRN (13:34)
[2022-09-08] MEDS: ARIPiprazole 15 MG TABLET PO SCH (14:22)
[2022-09-08] MEDS: SERTRALINE HCL 50 MG TABLET (FP) PO SCH (14:22)
[2022-09-08] MEDS: GABAPENTIN 300 MG CAPSULE PO SCH ×2 (14:22→22:32)
[2022-09-08] MEDS: chlordiazePOXIDE HCL 25 MG CAPSULE PO SCH ×2 (17:30→22:30)
[2022-09-08] MEDS: MELATONIN 5 MG TABLETS PO SCH (22:30)
[2022-09-08] MEDS: THIAMINE HCL 100 MG TABLET (FP) PO SCH (22:30)
[2022-09-08] MEDS: QUEtiapine FUMARATE 200 MG TABLET PO SCH (22:32)
[2022-09-09] MEDS: chlordiazePOXIDE HCL 25 MG CAPSULE PO SCH ×4 (05:36→22:07)
[2022-09-09] MEDS: GABAPENTIN 300 MG CAPSULE PO SCH ×3 (05:36→21:06)
[2022-09-09] MEDS ORDERED: PATIENT'S OWN MEDICATION (NON-FORMULARY) (Multivitamin [Multivitamin] 1 EACH Tablet) PO SCH (10:00)
[2022-09-09] MEDS: SERTRALINE HCL 50 MG TABLET (FP) PO SCH (10:44)
[2022-09-09] MEDS: NICOTINE 7 MG/24 HOURS TOPICAL PATCH TD SCH (10:44)
[2022-09-09] MEDS: PRENATAL VITAMINS W/ FOLIC ACID TABLET (FP) PO SCH (10:44)
[2022-09-09] MEDS: MINERAL OIL/PETROLAT/WATER TOPICAL CREAM 113 GM JAR TP SCH (10:44)
[2022-09-09] MEDS: ARIPiprazole 15 MG TABLET PO SCH (10:44)
[2022-09-09 10:54] LABS: HEMATOCRIT 31.1 % (32.4-45.2); HEMOGLOBIN 10.5 GM/dL (10.7-15.3); MCH 33.7 pg (25.7-33.7); MCHC 33.9 g/dl (32.0-36.0); MEAN CELL VOLUME 99.5 fl (80-96); MEAN PLT VOLUME 6.8 fl (7.5-11.1); PLATELET COUNT 300 10^3/uL (134-434); RBC 3.12 M/mm3 (3.60-5.2); WHITE BLOOD COUNT 5.1 K/mm3 (4.0-10.0)
[2022-09-09 11:04] LABS: CALCIUM 8.9 mg/dL (8.5-10.1)
[2022-09-09 11:05] LABS: ALBUMIN 3.2 g/dl (3.4-5.0); BLOOD UREA NITROGEN 12.5 mg/dL (7-18)
[2022-09-09 11:07] LABS: CREATININE 0.8 mg/dL (0.55-1.3)
[2022-09-09 11:08] LABS: TOT PROT 6.8 g/dl (6.4-8.2)
[2022-09-09 11:09] LABS: BILIRUBIN,TOTAL 0.5 mg/dL (0.2-1)
[2022-09-09] MEDS: hydrOXYzine PAMOATE 25 MG CAPSULE (FP) PO PRN ×2 (17:18→22:07)
[2022-09-09] MEDS: THIAMINE HCL 100 MG TABLET (FP) PO SCH (22:06)
[2022-09-09] MEDS: QUEtiapine FUMARATE 200 MG TABLET PO SCH (22:06)
[2022-09-09] MEDS: MELATONIN 5 MG TABLETS PO SCH (22:06)
[2022-09-10] MEDS: chlordiazePOXIDE HCL 25 MG CAPSULE PO SCH ×4 (06:01→23:09)
[2022-09-10] MEDS: GABAPENTIN 300 MG CAPSULE PO SCH ×3 (06:01→22:14)
[2022-09-10] MEDS: SERTRALINE HCL 50 MG TABLET (FP) PO SCH (10:07)
[2022-09-10] MEDS: ARIPiprazole 15 MG TABLET PO SCH (10:07)
[2022-09-10] MEDS: hydrOXYzine PAMOATE 25 MG CAPSULE (FP) PO PRN (10:07)
[2022-09-10] MEDS: METHOCARBAMOL 500 MG TABLET PO PRN (10:07)
[2022-09-10] MEDS: PRENATAL VITAMINS W/ FOLIC ACID TABLET (FP) PO SCH (10:07)
[2022-09-10] MEDS: MINERAL OIL/PETROLAT/WATER TOPICAL CREAM 113 GM JAR TP SCH (10:08)
[2022-09-10] MEDS: NICOTINE 7 MG/24 HOURS TOPICAL PATCH TD SCH (10:09)
[2022-09-10] MEDS: MELATONIN 5 MG TABLETS PO SCH (22:14)
[2022-09-10] MEDS: THIAMINE HCL 100 MG TABLET (FP) PO SCH (22:15)
[2022-09-10] MEDS: QUEtiapine FUMARATE 200 MG TABLET PO SCH (23:12)
[2022-09-11] MEDS ORDERED: chlordiazePOXIDE HCL 10 MG CAPSULE PO PRN
[2022-09-11] MEDS: chlordiazePOXIDE HCL 10 MG CAPSULE PO SCH ×4 (06:02→23:13)
[2022-09-11] MEDS: GABAPENTIN 300 MG CAPSULE PO SCH ×3 (06:02→23:13)
[2022-09-11] MEDS: hydrOXYzine PAMOATE 25 MG CAPSULE (FP) PO PRN ×2 (06:03→10:20)
[2022-09-11] MEDS: METHOCARBAMOL 500 MG TABLET PO PRN (10:20)
[2022-09-11] MEDS: PRENATAL VITAMINS W/ FOLIC ACID TABLET (FP) PO SCH (10:20)
[2022-09-11] MEDS: SERTRALINE HCL 50 MG TABLET (FP) PO SCH (10:20)
[2022-09-11] MEDS: ARIPiprazole 15 MG TABLET PO SCH (10:21)
[2022-09-11] MEDS: NICOTINE 7 MG/24 HOURS TOPICAL PATCH TD SCH (10:21)
[2022-09-11] MEDS: MINERAL OIL/PETROLAT/WATER TOPICAL CREAM 113 GM JAR TP SCH (10:21)
[2022-09-11] MEDS: LIDOCAINE 5% TOPICAL PATCH TP SCH (15:59)
[2022-09-11] MEDS: THIAMINE HCL 100 MG TABLET (FP) PO SCH (23:12)
[2022-09-11] MEDS: QUEtiapine FUMARATE 200 MG TABLET PO SCH (23:13)
[2022-09-11] MEDS: LIDOCAINE PATCH REMOVAL MC SCH (23:13)
[2022-09-11] MEDS: MELATONIN 5 MG TABLETS PO SCH (23:13)
[2022-09-12] MEDS: chlordiazePOXIDE HCL 10 MG CAPSULE PO SCH ×2 (05:44→17:18)
[2022-09-12] MEDS: GABAPENTIN 300 MG CAPSULE PO SCH ×3 (05:45→22:12)
[2022-09-12] MEDS: PRENATAL VITAMINS W/ FOLIC ACID TABLET (FP) PO SCH (09:49)
[2022-09-12] MEDS: MINERAL OIL/PETROLAT/WATER TOPICAL CREAM 113 GM JAR TP SCH (09:49)
[2022-09-12] MEDS: LIDOCAINE 5% TOPICAL PATCH TP SCH (09:49)
[2022-09-12] MEDS: ARIPiprazole 15 MG TABLET PO SCH (09:49)
[2022-09-12] MEDS: SERTRALINE HCL 50 MG TABLET (FP) PO SCH (09:49)
[2022-09-12] MEDS: NICOTINE 7 MG/24 HOURS TOPICAL PATCH TD SCH (09:51)
[2022-09-12 13:26] VITALS: RESP 18
[2022-09-12] MEDS: METHOCARBAMOL 500 MG TABLET PO PRN (17:20)
[2022-09-12] MEDS: hydrOXYzine PAMOATE 25 MG CAPSULE (FP) PO PRN (17:20)
[2022-09-12] MEDS: THIAMINE HCL 100 MG TABLET (FP) PO SCH (22:12)
[2022-09-12] MEDS: QUEtiapine FUMARATE 200 MG TABLET PO SCH (22:12)
[2022-09-12] MEDS: MELATONIN 5 MG TABLETS PO SCH (22:12)
[2022-09-12] MEDS: LIDOCAINE PATCH REMOVAL MC SCH (22:13)
[2022-09-13] MEDS ORDERED: chlordiazePOXIDE HCL 10 MG CAPSULE PO ONE (05:00)
[2022-09-13] MEDS: GABAPENTIN 300 MG CAPSULE PO SCH ×2 (06:17→16:03)
[2022-09-13] MEDS: LIDOCAINE 5% TOPICAL PATCH TP SCH (10:29)
[2022-09-13] MEDS: MINERAL OIL/PETROLAT/WATER TOPICAL CREAM 113 GM JAR TP SCH (10:29)
[2022-09-13] MEDS: ARIPiprazole 15 MG TABLET PO SCH (10:29)
[2022-09-13] MEDS: PRENATAL VITAMINS W/ FOLIC ACID TABLET (FP) PO SCH (10:30)
[2022-09-13] MEDS: NICOTINE 7 MG/24 HOURS TOPICAL PATCH TD SCH (10:31)
[2022-09-13] MEDS: SERTRALINE HCL 50 MG TABLET (FP) PO SCH (10:32)
[2022-09-13 17:45] VITALS: BP 144/85; PULSE 115; TEMP 97.8
== END 2022-09-13 19:10 | disposition other institution (70) | DRG 775 ==
LOC: YASAS 11:49 → Y6N 12:53
PROVIDERS: ADMIT Allergy & Immunology; ATTEND Surgery
PROC: HZ2ZZZZ Detoxification Services for Substance Abuse Treatment (ICD-10-PCS; principal; 2022-09-08)
DX: F10.230 Alcohol dependence with withdrawal, uncomplicated (principal); F17.210 Nicotine dependence, cigarettes, uncomplicated; F19.282 Other psychoactive substance dependence with psychoactive substance-induced sleep disorder; F31.9 Bipolar disorder, unspecified; I10 Essential (primary) hypertension; K21.9 Gastro-esophageal reflux disease without esophagitis; M54.50 Low back pain, unspecified; G89.29 Other chronic pain; M41.9 Scoliosis, unspecified; Z20.822 Contact with and (suspected) exposure to COVID-19; Z91.013 Allergy to seafood
CPT/HCPCS: 36415; 80053; 81025; 85027; 86780; C9803-CS; U0003; U0005

== ENCOUNTER 2022-09-13 19:27 | Inpatient (IN) | payer OTHER ==
[2022-09-13] MEDS ORDERED: IBUPROFEN 400 MG TABLET (FP) PO PRN (20:54)
[2022-09-13] MEDS ORDERED: LOPERAMIDE HCL 2 MG CAPSULE PO PRN (20:54)
[2022-09-13] MEDS ORDERED: MAG HYDROX/AL HYDROX/SIMETH 30 ML UNIT-DOSE CUP PO PRN (20:54)
[2022-09-13] MEDS ORDERED: guaiFENesin 200 MG/10 ML 10 ML UNIT-DOSE CUPS PO PRN (20:54)
[2022-09-13] MEDS ORDERED: P-EPHED 60MG/TRIPROLIDI 2.5MG TABLET PO PRN (20:54)
[2022-09-13] MEDS ORDERED: ACETAMINOPHEN 325 MG TABLET (FP) PO PRN (20:54)
[2022-09-13] MEDS ORDERED: BENZOCAINE/MENTHOL (CHLORASEPTIC ) LOZENGE MM PRN (20:54)
[2022-09-13] MEDS ORDERED: MAGNESIUM HYDROX 2400MG/30ML ORAL SUSPENSION 30 ML CUP PO PRN (20:54)
[2022-09-13] MEDS ORDERED: POLYETHYLENE GLYCOL (HEALTHYLAX) 3350 17 GM PACKET PO PRN (20:54)
[2022-09-13] MEDS: MELATONIN 5 MG TABLETS PO SCH (21:32)
[2022-09-13] MEDS: NICOTINE 10 MG CARTRIDGE (INHALER) IH PRN (21:33)
[2022-09-13] MEDS: THIAMINE HCL 100 MG TABLET (FP) PO SCH (21:35)
[2022-09-13] MEDS: QUEtiapine FUMARATE 200 MG TABLET PO SCH (21:35)
[2022-09-13] MEDS: GABAPENTIN 300 MG CAPSULE PO SCH (21:35)
[2022-09-14] MEDS: GABAPENTIN 300 MG CAPSULE PO SCH ×3 (06:59→21:49)
[2022-09-14] MEDS ORDERED: PATIENT'S OWN MEDICATION (NON-FORMULARY) (Multivitamin [Multivitamin] 1 EACH Tablet) PO SCH (10:00)
[2022-09-14] MEDS ORDERED: FOLIC ACID 1 MG TABLET (FP) PO SCH (10:00)
[2022-09-14] MEDS: PRENATAL VITAMINS W/ FOLIC ACID TABLET (FP) PO SCH (10:14)
[2022-09-14] MEDS: NICOTINE 10 MG CARTRIDGE (INHALER) IH PRN ×2 (10:34→19:28)
[2022-09-14] MEDS ORDERED: SERTRALINE HCL 50 MG TABLET (FP) PO SCH (12:30)
[2022-09-14] MEDS: ARIPiprazole 15 MG TABLET PO SCH (14:22)
[2022-09-14] MEDS: SERTRALINE HCL 50 MG TABLET (FP) PO SCH (14:22)
[2022-09-14] MEDS: NICOTINE 7 MG/24 HOURS TOPICAL PATCH TD SCH (14:23)
[2022-09-14] MEDS: QUEtiapine FUMARATE 200 MG TABLET PO SCH (21:49)
[2022-09-14] MEDS: THIAMINE HCL 100 MG TABLET (FP) PO SCH (21:49)
[2022-09-14] MEDS: MELATONIN 5 MG TABLETS PO SCH (21:49)
[2022-09-15] MEDS: GABAPENTIN 300 MG CAPSULE PO SCH ×3 (06:22→21:35)
[2022-09-15] MEDS: SERTRALINE HCL 50 MG TABLET (FP) PO SCH (10:33)
[2022-09-15] MEDS: PRENATAL VITAMINS W/ FOLIC ACID TABLET (FP) PO SCH (10:33)
[2022-09-15] MEDS: NICOTINE 7 MG/24 HOURS TOPICAL PATCH TD SCH (10:34)
[2022-09-15] MEDS: ARIPiprazole 15 MG TABLET PO SCH (10:35)
[2022-09-15] MEDS: THIAMINE HCL 100 MG TABLET (FP) PO SCH (21:35)
[2022-09-15] MEDS: QUEtiapine FUMARATE 200 MG TABLET PO SCH (21:35)
[2022-09-15] MEDS: MELATONIN 5 MG TABLETS PO SCH (21:35)
[2022-09-16] MEDS: GABAPENTIN 300 MG CAPSULE PO SCH ×3 (06:38→21:52)
[2022-09-16] MEDS: SERTRALINE HCL 50 MG TABLET (FP) PO SCH (10:18)
[2022-09-16] MEDS: ARIPiprazole 15 MG TABLET PO SCH (10:18)
[2022-09-16] MEDS: NICOTINE 7 MG/24 HOURS TOPICAL PATCH TD SCH (10:18)
[2022-09-16] MEDS: PRENATAL VITAMINS W/ FOLIC ACID TABLET (FP) PO SCH (10:18)
[2022-09-16] MEDS: NICOTINE 10 MG CARTRIDGE (INHALER) IH PRN ×2 (14:39→20:33)
[2022-09-16] MEDS: hydrOXYzine PAMOATE 25 MG CAPSULE (FP) PO PRN ×2 (14:41→21:52)
[2022-09-16] MEDS: FERROUS SO4 325 MG TABLET (FP) PO SCH (17:46)
[2022-09-16] MEDS: THIAMINE HCL 100 MG TABLET (FP) PO SCH (21:52)
[2022-09-16] MEDS: QUEtiapine FUMARATE 200 MG TABLET PO SCH (21:52)
[2022-09-16] MEDS: MELATONIN 5 MG TABLETS PO SCH (21:52)
[2022-09-17] MEDS: GABAPENTIN 300 MG CAPSULE PO SCH ×3 (06:09→21:47)
[2022-09-17] MEDS: FERROUS SO4 325 MG TABLET (FP) PO SCH ×2 (07:15→17:20)
[2022-09-17] MEDS: PRENATAL VITAMINS W/ FOLIC ACID TABLET (FP) PO SCH (10:27)
[2022-09-17] MEDS: NICOTINE 7 MG/24 HOURS TOPICAL PATCH TD SCH (10:27)
[2022-09-17] MEDS: SERTRALINE HCL 50 MG TABLET (FP) PO SCH (10:27)
[2022-09-17] MEDS: ARIPiprazole 15 MG TABLET PO SCH (10:28)
[2022-09-17] MEDS: NICOTINE 10 MG CARTRIDGE (INHALER) IH PRN (14:06)
[2022-09-17] MEDS: QUEtiapine FUMARATE 200 MG TABLET PO SCH (21:47)
[2022-09-17] MEDS: THIAMINE HCL 100 MG TABLET (FP) PO SCH (21:47)
[2022-09-17] MEDS: MELATONIN 5 MG TABLETS PO SCH (21:47)
[2022-09-17] MEDS: hydrOXYzine PAMOATE 25 MG CAPSULE (FP) PO PRN (21:48)
[2022-09-18] MEDS: GABAPENTIN 300 MG CAPSULE PO SCH ×3 (06:30→22:05)
[2022-09-18] MEDS: FERROUS SO4 325 MG TABLET (FP) PO SCH ×2 (07:07→17:18)
[2022-09-18] MEDS: PRENATAL VITAMINS W/ FOLIC ACID TABLET (FP) PO SCH (10:13)
[2022-09-18] MEDS: NICOTINE 7 MG/24 HOURS TOPICAL PATCH TD SCH (10:13)
[2022-09-18] MEDS: SERTRALINE HCL 50 MG TABLET (FP) PO SCH (10:14)
[2022-09-18] MEDS: ARIPiprazole 15 MG TABLET PO SCH (10:15)
[2022-09-18] MEDS: LIDOCAINE 5% TOPICAL PATCH TP SCH (12:19)
[2022-09-18] MEDS: hydrOXYzine PAMOATE 25 MG CAPSULE (FP) PO PRN ×2 (13:09→22:05)
[2022-09-18] MEDS: THIAMINE HCL 100 MG TABLET (FP) PO SCH (22:05)
[2022-09-18] MEDS: MELATONIN 5 MG TABLETS PO SCH (22:05)
[2022-09-18] MEDS: QUEtiapine FUMARATE 200 MG TABLET PO SCH (22:05)
[2022-09-18] MEDS: LIDOCAINE PATCH REMOVAL MC SCH (22:47)
[2022-09-19] MEDS: GABAPENTIN 300 MG CAPSULE PO SCH ×3 (06:12→21:48)
[2022-09-19] MEDS: FERROUS SO4 325 MG TABLET (FP) PO SCH ×2 (07:12→17:44)
[2022-09-19] MEDS: SERTRALINE HCL 50 MG TABLET (FP) PO SCH (10:28)
[2022-09-19] MEDS: PRENATAL VITAMINS W/ FOLIC ACID TABLET (FP) PO SCH (10:28)
[2022-09-19] MEDS: LIDOCAINE 5% TOPICAL PATCH TP SCH (10:29)
[2022-09-19] MEDS: ARIPiprazole 15 MG TABLET PO SCH (10:29)
[2022-09-19] MEDS: NICOTINE 7 MG/24 HOURS TOPICAL PATCH TD SCH (10:29)
[2022-09-19] MEDS: hydrOXYzine PAMOATE 25 MG CAPSULE (FP) PO PRN ×2 (14:27→21:48)
[2022-09-19] MEDS: NICOTINE 10 MG CARTRIDGE (INHALER) IH PRN (19:06)
[2022-09-19] MEDS: MELATONIN 5 MG TABLETS PO SCH (21:48)
[2022-09-19] MEDS: THIAMINE HCL 100 MG TABLET (FP) PO SCH (21:48)
[2022-09-19] MEDS: LIDOCAINE PATCH REMOVAL MC SCH (21:48)
[2022-09-19] MEDS: QUEtiapine FUMARATE 200 MG TABLET PO SCH (21:48)
[2022-09-20] MEDS: GABAPENTIN 300 MG CAPSULE PO SCH ×3 (06:15→21:35)
[2022-09-20] MEDS: FERROUS SO4 325 MG TABLET (FP) PO SCH ×2 (07:08→17:24)
[2022-09-20] MEDS: PRENATAL VITAMINS W/ FOLIC ACID TABLET (FP) PO SCH (10:30)
[2022-09-20] MEDS: LIDOCAINE 5% TOPICAL PATCH TP SCH (10:30)
[2022-09-20] MEDS: ARIPiprazole 15 MG TABLET PO SCH (10:31)
[2022-09-20] MEDS: NICOTINE 7 MG/24 HOURS TOPICAL PATCH TD SCH (10:31)
[2022-09-20] MEDS: SERTRALINE HCL 50 MG TABLET (FP) PO SCH (10:31)
[2022-09-20] MEDS: hydrOXYzine PAMOATE 25 MG CAPSULE (FP) PO PRN ×2 (10:32→21:35)
[2022-09-20] MEDS: MELATONIN 5 MG TABLETS PO SCH (21:35)
[2022-09-20] MEDS: LIDOCAINE PATCH REMOVAL MC SCH (21:35)
[2022-09-20] MEDS: THIAMINE HCL 100 MG TABLET (FP) PO SCH (21:35)
[2022-09-20] MEDS: QUEtiapine FUMARATE 200 MG TABLET PO SCH (21:35)
[2022-09-21] MEDS: GABAPENTIN 300 MG CAPSULE PO SCH ×3 (06:36→21:52)
[2022-09-21] MEDS: FERROUS SO4 325 MG TABLET (FP) PO SCH ×2 (07:07→17:42)
[2022-09-21] MEDS: NICOTINE 7 MG/24 HOURS TOPICAL PATCH TD SCH (10:31)
[2022-09-21] MEDS: PRENATAL VITAMINS W/ FOLIC ACID TABLET (FP) PO SCH (10:31)
[2022-09-21] MEDS: LIDOCAINE 5% TOPICAL PATCH TP SCH (10:32)
[2022-09-21] MEDS: SERTRALINE HCL 50 MG TABLET (FP) PO SCH (10:33)
[2022-09-21] MEDS: hydrOXYzine PAMOATE 25 MG CAPSULE (FP) PO PRN ×2 (10:34→21:53)
[2022-09-21] MEDS: ARIPiprazole 15 MG TABLET PO SCH (10:35)
[2022-09-21] MEDS: QUEtiapine FUMARATE 200 MG TABLET PO SCH (21:52)
[2022-09-21] MEDS: MELATONIN 5 MG TABLETS PO SCH (21:53)
[2022-09-21] MEDS: THIAMINE HCL 100 MG TABLET (FP) PO SCH (21:53)
[2022-09-21] MEDS: LIDOCAINE PATCH REMOVAL MC SCH (21:53)
[2022-09-22] MEDS: GABAPENTIN 300 MG CAPSULE PO SCH ×3 (06:12→21:41)
[2022-09-22] MEDS: FERROUS SO4 325 MG TABLET (FP) PO SCH ×2 (07:02→17:24)
[2022-09-22] MEDS: ARIPiprazole 15 MG TABLET PO SCH (09:53)
[2022-09-22] MEDS: SERTRALINE HCL 50 MG TABLET (FP) PO SCH (09:54)
[2022-09-22] MEDS: LIDOCAINE 5% TOPICAL PATCH TP SCH (09:54)
[2022-09-22] MEDS: PRENATAL VITAMINS W/ FOLIC ACID TABLET (FP) PO SCH (09:54)
[2022-09-22] MEDS: NICOTINE 7 MG/24 HOURS TOPICAL PATCH TD SCH (09:55)
[2022-09-22] MEDS: hydrOXYzine PAMOATE 25 MG CAPSULE (FP) PO PRN (09:55)
[2022-09-22] MEDS: NICOTINE 10 MG CARTRIDGE (INHALER) IH PRN (14:24)
[2022-09-22] MEDS: MELATONIN 5 MG TABLETS PO SCH (21:41)
[2022-09-22] MEDS: THIAMINE HCL 100 MG TABLET (FP) PO SCH (21:41)
[2022-09-22] MEDS: QUEtiapine FUMARATE 200 MG TABLET PO SCH (21:41)
[2022-09-22] MEDS: LIDOCAINE PATCH REMOVAL MC SCH (21:42)
[2022-09-23] MEDS: GABAPENTIN 300 MG CAPSULE PO SCH (06:34)
[2022-09-23] MEDS: FERROUS SO4 325 MG TABLET (FP) PO SCH (07:09)
[2022-09-23 07:24] VITALS: BP 97/65; PULSE 95; RESP 16; TEMP 97.9
[2022-09-23] MEDS: ARIPiprazole 15 MG TABLET PO SCH (09:48)
[2022-09-23] MEDS: LIDOCAINE 5% TOPICAL PATCH TP SCH (09:49)
[2022-09-23] MEDS: SERTRALINE HCL 50 MG TABLET (FP) PO SCH (09:49)
[2022-09-23] MEDS: PRENATAL VITAMINS W/ FOLIC ACID TABLET (FP) PO SCH (09:49)
[2022-09-23] MEDS: hydrOXYzine PAMOATE 25 MG CAPSULE (FP) PO PRN (09:50)
[2022-09-23] MEDS: NICOTINE 7 MG/24 HOURS TOPICAL PATCH TD SCH (09:51)
== END 2022-09-23 10:00 | disposition home or self-care (01) | DRG 772 ==
LOC: YASAS 19:27 → Y5N 19:28
PROVIDERS: ADMIT Allergy & Immunology; ATTEND Psychiatry & Neurology Pain Medicine
PROC: HZ42ZZZ Group Counseling for Substance Abuse Treatment, Cognitive-Behavioral (ICD-10-PCS; principal; 2022-09-13)
DX: F10.20 Alcohol dependence, uncomplicated (principal); F14.20 Cocaine dependence, uncomplicated; F17.210 Nicotine dependence, cigarettes, uncomplicated; I10 Essential (primary) hypertension; K21.9 Gastro-esophageal reflux disease without esophagitis; M41.9 Scoliosis, unspecified; D50.9 Iron deficiency anemia, unspecified; Z91.013 Allergy to seafood

== ENCOUNTER 2023-01-04 10:32 | Inpatient (IN) | payer OTHER ==
[2023-01-04 10:47] VITALS: BMI 24.9
[2023-01-04] MEDS ORDERED: chlordiazePOXIDE HCL 25 MG CAPSULE PO SCH (11:00)
[2023-01-04] MEDS ORDERED: ACETAMINOPHEN 325 MG TABLET (FP) PO PRN (11:27)
[2023-01-04] MEDS ORDERED: IBUPROFEN 600 MG TABLET (FP) PO PRN (11:27)
[2023-01-04] MEDS ORDERED: NALOXONE HCL 0.4 MG/ML VIAL IM PRN (11:27)
[2023-01-04] MEDS ORDERED: NICOTINE 10 MG CARTRIDGE (INHALER) IH PRN (11:27)
[2023-01-04] MEDS ORDERED: BENZONATATE 200 MG CAPSULE PO PRN (11:27)
[2023-01-04] MEDS ORDERED: BISMUTH SUBSALICYLATE 262 MG/15 ML BTL PO PRN (11:27)
[2023-01-04] MEDS ORDERED: guaiFENesin 600 MG TABLET.ER (FP) PO PRN (11:27)
[2023-01-04] MEDS ORDERED: ONDANSETRON *ODT* 4 MG TABLET SL PRN (11:27)
[2023-01-04] MEDS ORDERED: IBUPROFEN 400 MG TABLET (FP) PO PRN (11:27)
[2023-01-04] MEDS ORDERED: NALOXONE HCL (KLOXXADO) 8 MG SPRAY NS PRN (11:27)
[2023-01-04] MEDS ORDERED: BENZOCAINE/MENTHOL (CHLORASEPTIC ) LOZENGE MM PRN (11:27)
[2023-01-04] MEDS ORDERED: MAG HYDROX/AL HYDROX/SIMETH 30 ML UNIT-DOSE CUP PO PRN (11:27)
[2023-01-04] MEDS ORDERED: chlordiazePOXIDE HCL 25 MG CAPSULE PO PRN (11:27)
[2023-01-04] MEDS ORDERED: DICYCLOMINE HCL 10 MG CAPSULE PO PRN (11:27)
[2023-01-04] MEDS ORDERED: MAGNESIUM HYDROX 2400MG/30ML ORAL SUSPENSION 30 ML CUP PO PRN (11:27)
[2023-01-04] MEDS ORDERED: POLYETHYLENE GLYCOL (HEALTHYLAX) 3350 17 GM PACKET PO PRN (11:27)
[2023-01-04] MEDS ORDERED: LOPERAMIDE HCL 2 MG CAPSULE PO PRN (11:27)
[2023-01-04] MEDS ORDERED: LORazepam 1 MG TABLET PO PRN (11:34)
[2023-01-04] MEDS ORDERED: LORazepam 2 MG TABLET ONE (11:59)
[2023-01-04] MEDS ORDERED: NICOTINE 7 MG/24 HOURS TOPICAL PATCH TD ONE (11:59)
[2023-01-04] MEDS ORDERED: PRENATAL VITAMINS W/ FOLIC ACID TABLET (FP) PO ONE (12:00)
[2023-01-04] MEDS: LORazepam 2 MG TABLET PO SCH ×3 (12:11→22:20)
[2023-01-04] MEDS: NICOTINE 7 MG/24 HOURS TOPICAL PATCH TD SCH (12:13)
[2023-01-04] MEDS: PRENATAL VITAMINS W/ FOLIC ACID TABLET (FP) PO SCH (12:13)
[2023-01-04] MEDS: METHOCARBAMOL 500 MG TABLET PO PRN ×2 (12:36→22:19)
[2023-01-04] MEDS: hydrOXYzine PAMOATE 25 MG CAPSULE (FP) PO PRN (12:36)
[2023-01-04 17:12] LABS: HEMOGLOBIN 12.5 GM/dL (10.7-15.3); MCH 32.3 pg (25.7-33.7); MCHC 33.8 g/dl (32.0-36.0); MEAN CELL VOLUME 95.5 fl (80-96); MEAN PLT VOLUME 7.6 fl (7.5-11.1); PLATELET COUNT 184 10^3/uL (134-434); RBC 3.88 M/mm3 (3.60-5.2); RDW 17.8 % (11.6-15.6); WHITE BLOOD COUNT 3.5 K/mm3 (4.0-10.0)
[2023-01-04 17:26] LABS: BLOOD UREA NITROGEN 7.4 mg/dL (7-18); CALCIUM 8.9 mg/dL (8.5-10.1)
[2023-01-04 17:27] LABS: ALBUMIN 3.8 g/dl (3.4-5.0)
[2023-01-04 17:29] LABS: CREATININE 0.8 mg/dL (0.55-1.3)
[2023-01-04 17:30] LABS: BILIRUBIN,TOTAL 0.4 mg/dL (0.2-1)
[2023-01-04 17:31] LABS: TOT PROT 8.4 g/dl (6.4-8.2)
[2023-01-04] MEDS ORDERED: MELATONIN 5 MG TABLETS PO SCH (22:00)
[2023-01-04] MEDS: THIAMINE HCL 100 MG TABLET (FP) PO SCH (22:19)
[2023-01-05] MEDS: LORazepam 2 MG TABLET PO SCH ×4 (05:20→22:08)
[2023-01-05] MEDS: ARIPiprazole 15 MG TABLET PO SCH (10:15)
[2023-01-05] MEDS: PRENATAL VITAMINS W/ FOLIC ACID TABLET (FP) PO SCH (10:15)
[2023-01-05] MEDS: SERTRALINE HCL 50 MG TABLET (FP) PO SCH (10:18)
[2023-01-05] MEDS: NICOTINE 7 MG/24 HOURS TOPICAL PATCH TD SCH (10:18)
[2023-01-05] MEDS: GABAPENTIN 300 MG CAPSULE PO SCH ×2 (13:31→22:08)
[2023-01-05] MEDS: hydrOXYzine PAMOATE 25 MG CAPSULE (FP) PO PRN (18:42)
[2023-01-05] MEDS ORDERED: QUEtiapine FUMARATE 200 MG TABLET PO SCH (22:00)
[2023-01-05] MEDS: METHOCARBAMOL 500 MG TABLET PO PRN (22:08)
[2023-01-05] MEDS: THIAMINE HCL 100 MG TABLET (FP) PO SCH (22:08)
[2023-01-06] MEDS ORDERED: chlordiazePOXIDE HCL 25 MG CAPSULE PO SCH (05:00)
[2023-01-06] MEDS: LORazepam 1 MG TABLET PO SCH ×2 (05:22→10:13)
[2023-01-06] MEDS: GABAPENTIN 300 MG CAPSULE PO SCH ×3 (05:22→13:52)
[2023-01-06 09:36] VITALS: BP 141/79; PULSE 116; RESP 20; TEMP 98.1
[2023-01-06] MEDS: ARIPiprazole 15 MG TABLET PO SCH (10:12)
[2023-01-06] MEDS: SERTRALINE HCL 50 MG TABLET (FP) PO SCH (10:13)
[2023-01-06] MEDS: PRENATAL VITAMINS W/ FOLIC ACID TABLET (FP) PO SCH (10:13)
[2023-01-06] MEDS: NICOTINE 7 MG/24 HOURS TOPICAL PATCH TD SCH (10:13)
[2023-01-07] MEDS ORDERED: chlordiazePOXIDE HCL 10 MG CAPSULE PO PRN
[2023-01-07] MEDS ORDERED: LORazepam 0.5 MG TABLET PO PRN
[2023-01-07] MEDS ORDERED: LORazepam 0.5 MG TABLET PO SCH (05:00)
[2023-01-07] MEDS ORDERED: chlordiazePOXIDE HCL 10 MG CAPSULE PO SCH (05:00)
[2023-01-08] MEDS ORDERED: chlordiazePOXIDE HCL 10 MG CAPSULE PO SCH (05:00)
[2023-01-08] MEDS ORDERED: LORazepam 0.5 MG TABLET PO ONE (05:00)
[2023-01-09] MEDS ORDERED: chlordiazePOXIDE HCL 10 MG CAPSULE PO ONE (05:00)
== END 2023-01-06 09:25 | disposition home or self-care (01) | DRG 774 ==
LOC: YASAS 10:32 → Y6N 11:56
PROVIDERS: ADMIT Allergy & Immunology; ATTEND Surgery
PROC: HZ2ZZZZ Detoxification Services for Substance Abuse Treatment (ICD-10-PCS; principal; 2023-01-04)
DX: F10.230 Alcohol dependence with withdrawal, uncomplicated (principal); F14.20 Cocaine dependence, uncomplicated; F17.210 Nicotine dependence, cigarettes, uncomplicated; F31.9 Bipolar disorder, unspecified; F19.280 Other psychoactive substance dependence with psychoactive substance-induced anxiety disorder; F19.282 Other psychoactive substance dependence with psychoactive substance-induced sleep disorder; F19.24 Other psychoactive substance dependence with psychoactive substance-induced mood disorder; D64.9 Anemia, unspecified; I10 Essential (primary) hypertension; K21.9 Gastro-esophageal reflux disease without esophagitis; M41.9 Scoliosis, unspecified
CPT/HCPCS: 36415; 80053; 81025; 85027; 86780; C9803-CS; Q0162; U0003; U0005

== ENCOUNTER 2023-08-16 06:32 | Inpatient (IN) | payer OTHER ==
[2023-08-16 07:10] VITALS: BMI 20.7
[2023-08-16] MEDS ORDERED: TRIMETHOBENZAMIDE HCL 200MG/2ML INJ IM ONE ×2 (09:06→09:15)
[2023-08-16] MEDS ORDERED: BENZONATATE 200 MG CAPSULE PO PRN (09:10)
[2023-08-16] MEDS ORDERED: LORazepam 1 MG TABLET PO PRN (09:10)
[2023-08-16] MEDS ORDERED: NALOXONE HCL 0.4 MG/ML VIAL IM PRN (09:10)
[2023-08-16] MEDS ORDERED: ACETAMINOPHEN 325 MG TABLET (FP) PO PRN (09:10)
[2023-08-16] MEDS ORDERED: MAGNESIUM HYDROX 2400MG/30ML ORAL SUSPENSION 30 ML CUP PO PRN (09:10)
[2023-08-16] MEDS ORDERED: MAG HYDROX/AL HYDROX/SIMETH 30 ML UNIT-DOSE CUP PO PRN (09:10)
[2023-08-16] MEDS ORDERED: LOPERAMIDE HCL 2 MG CAPSULE PO PRN (09:10)
[2023-08-16] MEDS ORDERED: DICYCLOMINE HCL 10 MG CAPSULE PO PRN (09:10)
[2023-08-16] MEDS ORDERED: ONDANSETRON *ODT* 4 MG TABLET SL PRN (09:10)
[2023-08-16] MEDS ORDERED: BISMUTH SUBSALICYLATE 524 MG/30 ML PO PRN (09:10)
[2023-08-16] MEDS ORDERED: NALOXONE HCL (KLOXXADO) 8 MG SPRAY NS PRN (09:10)
[2023-08-16] MEDS ORDERED: POLYETHYLENE GLYCOL (HEALTHYLAX) 3350 17 GM PACKET PO PRN (09:10)
[2023-08-16] MEDS ORDERED: BENZOCAINE/MENTHOL (CHLORASEPTIC ) LOZENGE MM PRN (09:10)
[2023-08-16] MEDS ORDERED: guaiFENesin 600 MG TABLET.ER (FP) PO PRN (09:10)
[2023-08-16] MEDS ORDERED: METHOCARBAMOL 500 MG TABLET PO PRN (09:10)
[2023-08-16] MEDS ORDERED: IBUPROFEN 400 MG TABLET (FP) PO PRN (09:10)
[2023-08-16] MEDS ORDERED: LORazepam 2 MG TABLET PO ONE (09:30)
[2023-08-16] MEDS ORDERED: PRENATAL VITAMINS W/ FOLIC ACID TABLET (FP) PO ONE (09:34)
[2023-08-16] MEDS ORDERED: NICOTINE 14 MG/24 HOURS TOPICAL PATCH TD ONE (09:34)
[2023-08-16] MEDS ORDERED: LORazepam 2 MG TABLET ONE (09:34)
[2023-08-16] MEDS: NICOTINE 14 MG/24 HOURS TOPICAL PATCH TD SCH (09:49)
[2023-08-16] MEDS: PRENATAL VITAMINS W/ FOLIC ACID TABLET (FP) PO SCH (09:49)
[2023-08-16] MEDS: LORazepam 2 MG TABLET PO SCH ×2 (17:35→22:43)
[2023-08-16] MEDS: QUEtiapine FUMARATE 100 MG TABLET (FP) PO SCH (22:43)
[2023-08-16] MEDS: MELATONIN 5 MG TABLETS PO SCH (22:43)
[2023-08-16] MEDS: THIAMINE HCL 100 MG TABLET (FP) PO SCH (22:43)
[2023-08-16] MEDS: hydrOXYzine PAMOATE 25 MG CAPSULE (FP) PO PRN (22:44)
[2023-08-17] MEDS: IBUPROFEN 600 MG TABLET (FP) PO PRN ×2 (05:57→17:17)
[2023-08-17] MEDS: LORazepam 2 MG TABLET PO SCH ×4 (05:59→22:10)
[2023-08-17] MEDS: SERTRALINE HCL 50 MG TABLET (FP) PO SCH (10:33)
[2023-08-17] MEDS: PRENATAL VITAMINS W/ FOLIC ACID TABLET (FP) PO SCH (10:33)
[2023-08-17] MEDS: NICOTINE 14 MG/24 HOURS TOPICAL PATCH TD SCH (10:33)
[2023-08-17 10:34] LABS: HEMATOCRIT 37.5 % (32.4-45.2); HEMOGLOBIN 12.4 GM/dL (10.7-15.3); MCH 29.8 pg (25.7-33.7); MCHC 33.2 g/dl (32.0-36.0); MEAN CELL VOLUME 89.8 fl (80-96); MEAN PLT VOLUME 7.6 fl (7.5-11.1); PLATELET COUNT 254 10^3/uL (134-434); RBC 4.17 M/mm3 (3.60-5.2); RDW 18.1 % (11.6-15.6); WHITE BLOOD COUNT 7.7 K/mm3 (4.0-10.0)
[2023-08-17 10:35] LABS: POTASSIUM 3.1 mmol/L (3.5-5.1)
[2023-08-17 10:43] LABS: ALBUMIN 3.9 g/dl (3.4-5.0); BLOOD UREA NITROGEN 15.4 mg/dL (7-18); CALCIUM 9.6 mg/dL (8.5-10.1)
[2023-08-17 10:46] LABS: CREATININE 0.7 mg/dL (0.55-1.3)
[2023-08-17 10:47] LABS: BILIRUBIN,TOTAL 1.2 mg/dL (0.2-1); TOT PROT 8.2 g/dl (6.4-8.2)
[2023-08-17] MEDS: POTASSIUM CHLORIDE ORAL LIQUID 20 MEQ/15 ML PO SCH ×2 (12:31→22:10)
[2023-08-17] MEDS: LACTULOSE 20 GM/30 ML UDC (FOR ORAL USE ONLY) PO SCH ×2 (13:57→22:10)
[2023-08-17] MEDS: QUEtiapine FUMARATE 100 MG TABLET (FP) PO SCH (22:10)
[2023-08-17] MEDS: MELATONIN 5 MG TABLETS PO SCH (22:10)
[2023-08-17] MEDS: THIAMINE HCL 100 MG TABLET (FP) PO SCH (22:10)
[2023-08-17] MEDS: hydrOXYzine PAMOATE 25 MG CAPSULE (FP) PO PRN (22:11)
[2023-08-18] MEDS: LACTULOSE 20 GM/30 ML UDC (FOR ORAL USE ONLY) PO SCH ×2 (05:19→14:51)
[2023-08-18] MEDS: LORazepam 1 MG TABLET PO SCH ×2 (05:20→10:10)
[2023-08-18 08:55] VITALS: RESP 18
[2023-08-18] MEDS: SERTRALINE HCL 50 MG TABLET (FP) PO SCH (10:10)
[2023-08-18] MEDS: PRENATAL VITAMINS W/ FOLIC ACID TABLET (FP) PO SCH (10:10)
[2023-08-18] MEDS: NICOTINE 14 MG/24 HOURS TOPICAL PATCH TD SCH (10:10)
[2023-08-18] MEDS: hydrOXYzine PAMOATE 25 MG CAPSULE (FP) PO PRN (10:12)
[2023-08-18 12:36] VITALS: BP 109/76; PULSE 79; TEMP 98.6
[2023-08-19] MEDS ORDERED: LORazepam 0.5 MG TABLET PO PRN
[2023-08-19] MEDS ORDERED: LORazepam 0.5 MG TABLET PO SCH (05:00)
[2023-08-20] MEDS ORDERED: LORazepam 0.5 MG TABLET PO ONE (05:00)
== END 2023-08-18 13:27 | disposition left against medical advice (07) | DRG 770 ==
LOC: YASAS 06:32 → Y3N 09:46
PROVIDERS: ADMIT Allergy & Immunology; ATTEND Surgery
PROC: HZ2ZZZZ Detoxification Services for Substance Abuse Treatment (ICD-10-PCS; principal; 2023-08-16)
DX: F10.230 Alcohol dependence with withdrawal, uncomplicated (principal); F17.210 Nicotine dependence, cigarettes, uncomplicated; F31.9 Bipolar disorder, unspecified; F25.1 Schizoaffective disorder, depressive type; F19.24 Other psychoactive substance dependence with psychoactive substance-induced mood disorder; F41.9 Anxiety disorder, unspecified; E72.20 Disorder of urea cycle metabolism, unspecified; E87.6 Hypokalemia; I10 Essential (primary) hypertension; K21.9 Gastro-esophageal reflux disease without esophagitis
CPT/HCPCS: 36415; 80053; 80307; 81025; 82140; 84132; 85027; 86780; 87635; 87811

== ENCOUNTER 2023-10-19 12:48 | Inpatient (IN) | payer OTHER ==
[2023-10-19 13:15] VITALS: BMI 24.1
[2023-10-19] MEDS ORDERED: MAGNESIUM HYDROX 2400MG/30ML ORAL SUSPENSION 30 ML CUP PO PRN (13:36)
[2023-10-19] MEDS ORDERED: BENZOCAINE/MENTHOL (CHLORASEPTIC ) LOZENGE MM PRN (13:36)
[2023-10-19] MEDS ORDERED: LOPERAMIDE HCL 2 MG CAPSULE PO PRN (13:36)
[2023-10-19] MEDS ORDERED: NALOXONE HCL 0.4 MG/ML VIAL IM PRN (13:36)
[2023-10-19] MEDS ORDERED: LORazepam 2 MG TABLET PO ONE (13:36)
[2023-10-19] MEDS ORDERED: BENZONATATE 200 MG CAPSULE PO PRN (13:36)
[2023-10-19] MEDS ORDERED: ACETAMINOPHEN 325 MG TABLET (FP) PO PRN (13:36)
[2023-10-19] MEDS ORDERED: MAG HYDROX/AL HYDROX/SIMETH 30 ML UNIT-DOSE CUP PO PRN (13:36)
[2023-10-19] MEDS ORDERED: DICYCLOMINE HCL 10 MG CAPSULE PO PRN (13:36)
[2023-10-19] MEDS ORDERED: ONDANSETRON *ODT* 4 MG TABLET SL PRN (13:36)
[2023-10-19] MEDS ORDERED: IBUPROFEN 400 MG TABLET (FP) PO PRN (13:36)
[2023-10-19] MEDS ORDERED: NALOXONE HCL (KLOXXADO) 8 MG SPRAY NS PRN (13:36)
[2023-10-19] MEDS ORDERED: guaiFENesin 600 MG TABLET.ER (FP) PO PRN (13:36)
[2023-10-19] MEDS ORDERED: BISMUTH SUBSALICYLATE 262 MG/15 ML BTL PO PRN (13:36)
[2023-10-19] MEDS ORDERED: POLYETHYLENE GLYCOL (HEALTHYLAX) 3350 17 GM PACKET PO PRN (13:36)
[2023-10-19] MEDS ORDERED: IBUPROFEN 600 MG TABLET (FP) PO PRN (13:36)
[2023-10-19] MEDS ORDERED: LORazepam 2 MG TABLET ONE (13:51)
[2023-10-19] MEDS ORDERED: PRENATAL VITAMINS W/ FOLIC ACID TABLET (FP) PO ONE (13:51)
[2023-10-19] MEDS: PRENATAL VITAMINS W/ FOLIC ACID TABLET (FP) PO SCH (14:08)
[2023-10-19] MEDS: hydrOXYzine PAMOATE 25 MG CAPSULE (FP) PO PRN (17:54)
[2023-10-19] MEDS: LORazepam 2 MG TABLET PO SCH ×2 (17:54→22:49)
[2023-10-19] MEDS: METHOCARBAMOL 500 MG TABLET PO PRN (20:37)
[2023-10-19] MEDS ORDERED: MELATONIN 5 MG TABLETS PO SCH (22:00)
[2023-10-19] MEDS: THIAMINE HCL 100 MG TABLET (FP) PO SCH (22:49)
[2023-10-20] MEDS: LORazepam 2 MG TABLET PO SCH ×4 (05:52→22:24)
[2023-10-20 10:16] LABS: CHLORIDE 103 mmol/L (98-107); POTASSIUM 3.3 mmol/L (3.5-5.1); SODIUM 138 mmol/L (136-145)
[2023-10-20 10:20] LABS: ALBUMIN 3.3 g/dl (3.4-5.0); BLOOD UREA NITROGEN 14.9 mg/dL (7-18); CALCIUM 9.2 mg/dL (8.5-10.1); GLUCOSE,RANDOM 82 mg/dL (74-106)
[2023-10-20 10:21] LABS: ANION GAP 9 mmol/L (4-13); CO2 26 mmol/L (21-32); SGOT/AST 27 U/L (15-37)
[2023-10-20 10:23] LABS: CREATININE 0.7 mg/dL (0.55-1.3); SGPT/ALT 19 U/L (13-61)
[2023-10-20 10:25] LABS: ALK PHOS 83 U/L (45-117); TOT PROT 7.2 g/dl (6.4-8.2)
[2023-10-20 10:30] LABS: HEMATOCRIT 35.5 % (32.4-45.2); HEMOGLOBIN 11.6 GM/dL (10.7-15.3); MCH 32.2 pg (25.7-33.7); MCHC 32.7 g/dl (32.0-36.0); MEAN CELL VOLUME 98.4 fl (80-96); MEAN PLT VOLUME 7.1 fl (7.5-11.1); PLATELET COUNT 334 10^3/uL (134-434); RBC 3.61 M/mm3 (3.60-5.2); RDW 16.9 % (11.6-15.6)
[2023-10-20] MEDS: PRENATAL VITAMINS W/ FOLIC ACID TABLET (FP) PO SCH (10:30)
[2023-10-20] MEDS: FAMOTIDINE 20 MG TABLET PO SCH (10:30)
[2023-10-20] MEDS: NICOTINE 21 MG/24 HOURS TOPICAL PATCH TD SCH (10:30)
[2023-10-20] MEDS: hydrOXYzine PAMOATE 25 MG CAPSULE (FP) PO PRN ×2 (10:32→17:54)
[2023-10-20 10:39] LABS: BILIRUBIN,TOTAL 0.6 mg/dL (0.2-1)
[2023-10-20] MEDS ORDERED: POTASSIUM CHLORIDE ORAL LIQUID 20 MEQ/15 ML PO ONE (11:07)
[2023-10-20] MEDS: LACTULOSE 20 GM/30 ML UDC (FOR ORAL USE ONLY) PO SCH ×2 (14:57→22:24)
[2023-10-20] MEDS ORDERED: GABAPENTIN 300 MG CAPSULE PO ONE (22:00)
[2023-10-20] MEDS ORDERED: QUEtiapine FUMARATE 100 MG TABLET (FP) PO ONE (22:00)
[2023-10-20] MEDS: THIAMINE HCL 100 MG TABLET (FP) PO SCH (22:24)
[2023-10-21] MEDS: LACTULOSE 20 GM/30 ML UDC (FOR ORAL USE ONLY) PO SCH ×3 (05:45→22:45)
[2023-10-21] MEDS: LORazepam 1 MG TABLET PO SCH ×4 (05:45→22:18)
[2023-10-21] MEDS: PRENATAL VITAMINS W/ FOLIC ACID TABLET (FP) PO SCH (10:23)
[2023-10-21] MEDS: NICOTINE 21 MG/24 HOURS TOPICAL PATCH TD SCH (10:24)
[2023-10-21] MEDS: METHOCARBAMOL 500 MG TABLET PO PRN ×2 (10:24→19:45)
[2023-10-21] MEDS: FAMOTIDINE 20 MG TABLET PO SCH (10:24)
[2023-10-21] MEDS: hydrOXYzine PAMOATE 25 MG CAPSULE (FP) PO PRN ×2 (10:24→22:18)
[2023-10-21] MEDS: SERTRALINE HCL 50 MG TABLET (FP) PO SCH (10:30)
[2023-10-21] MEDS: GABAPENTIN 300 MG CAPSULE PO SCH ×2 (13:29→22:17)
[2023-10-21] MEDS: LORazepam 1 MG TABLET PO PRN ×2 (13:33→19:45)
[2023-10-21] MEDS ORDERED: QUEtiapine FUMARATE 100 MG TABLET (FP) PO SCH (22:00)
[2023-10-21] MEDS: THIAMINE HCL 100 MG TABLET (FP) PO SCH (22:17)
[2023-10-22] MEDS ORDERED: LORazepam 0.5 MG TABLET PO PRN
[2023-10-22] MEDS: LORazepam 0.5 MG TABLET PO SCH ×2 (05:08→10:18)
[2023-10-22] MEDS: LACTULOSE 20 GM/30 ML UDC (FOR ORAL USE ONLY) PO SCH (06:09)
[2023-10-22] MEDS: GABAPENTIN 300 MG CAPSULE PO SCH (06:09)
[2023-10-22 09:46] VITALS: BP 138/82; PULSE 80; RESP 18; TEMP 97.1
[2023-10-22] MEDS: NICOTINE 21 MG/24 HOURS TOPICAL PATCH TD SCH (10:16)
[2023-10-22] MEDS: PRENATAL VITAMINS W/ FOLIC ACID TABLET (FP) PO SCH (10:16)
[2023-10-22] MEDS: FAMOTIDINE 20 MG TABLET PO SCH (10:16)
[2023-10-22] MEDS: hydrOXYzine PAMOATE 25 MG CAPSULE (FP) PO PRN (10:17)
[2023-10-22] MEDS: SERTRALINE HCL 50 MG TABLET (FP) PO SCH (10:17)
[2023-10-23] MEDS ORDERED: LORazepam 0.5 MG TABLET PO ONE (05:00)
== END 2023-10-22 11:20 | disposition home or self-care (01) | DRG 774 ==
LOC: YASAS 12:48 → Y6N 13:49
PROVIDERS: ADMIT Allergy & Immunology; ATTEND Surgery
PROC: HZ2ZZZZ Detoxification Services for Substance Abuse Treatment (ICD-10-PCS; principal; 2023-10-19)
DX: F10.230 Alcohol dependence with withdrawal, uncomplicated (principal); F14.20 Cocaine dependence, uncomplicated; F17.210 Nicotine dependence, cigarettes, uncomplicated; F25.1 Schizoaffective disorder, depressive type; F19.282 Other psychoactive substance dependence with psychoactive substance-induced sleep disorder; F19.24 Other psychoactive substance dependence with psychoactive substance-induced mood disorder; E72.20 Disorder of urea cycle metabolism, unspecified; K70.30 Alcoholic cirrhosis of liver without ascites; E87.6 Hypokalemia; I10 Essential (primary) hypertension; K21.9 Gastro-esophageal reflux disease without esophagitis
CPT/HCPCS: 36415; 80053; 80305; 80307; 81025; 82140; 85027; 86780; 87635; 87811

== ENCOUNTER 2024-07-16 14:40 | Inpatient (IN) | payer OTHER ==
[2024-07-16 15:24] VITALS: BMI 27.6
[2024-07-16] MEDS ORDERED: NICOTINE POLACRILEX 2 MG LOZENGE BC PRN (15:59)
[2024-07-16] MEDS ORDERED: MAGNESIUM HYDROX 2400MG/30ML ORAL SUSPENSION 30 ML CUP PO PRN (15:59)
[2024-07-16] MEDS ORDERED: POLYETHYLENE GLYCOL (HEALTHYLAX) 3350 17 GM PACKET PO PRN (15:59)
[2024-07-16] MEDS ORDERED: guaiFENesin 600 MG TABLET.ER (FP) PO PRN (15:59)
[2024-07-16] MEDS ORDERED: BENZOCAINE/MENTHOL (CHLORASEPTIC ) LOZENGE MM PRN (15:59)
[2024-07-16] MEDS ORDERED: LOPERAMIDE HCL 2 MG CAPSULE PO PRN (15:59)
[2024-07-16] MEDS ORDERED: NICOTINE POLACRILEX 2 MG GUM BUC PRN (15:59)
[2024-07-16] MEDS ORDERED: ACETAMINOPHEN 325 MG TABLET (FP) PO PRN (15:59)
[2024-07-16] MEDS ORDERED: IBUPROFEN 400 MG TABLET (FP) PO PRN (15:59)
[2024-07-16] MEDS ORDERED: BENZONATATE 200 MG CAPSULE PO PRN (15:59)
[2024-07-16] MEDS ORDERED: MAG HYDROX/AL HYDROX/SIMETH 30 ML UNIT-DOSE CUP PO PRN (15:59)
[2024-07-16] MEDS ORDERED: BISMUTH SUBSALICYLATE 524 MG/30 ML PO PRN (15:59)
[2024-07-16] MEDS ORDERED: DICYCLOMINE HCL 10 MG CAPSULE PO PRN (15:59)
[2024-07-16] MEDS ORDERED: METHOCARBAMOL 500 MG TABLET PO PRN (15:59)
[2024-07-16] MEDS: METOPROLOL TARTRATE 25 MG TABLET (FP) PO ONE (16:04)
[2024-07-16] MEDS ORDERED: ONDANSETRON *ODT* 4 MG TABLET ONE (16:55)
[2024-07-16] MEDS: ONDANSETRON *ODT* 4 MG TABLET SL PRN (17:04)
[2024-07-16] MEDS: chlordiazePOXIDE HCL 25 MG CAPSULE PO PRN (20:00)
[2024-07-16] MEDS: THIAMINE 100 MG TABLET PO SCH (22:18)
[2024-07-16] MEDS: MELATONIN 5 MG TABLETS PO SCH (22:18)
[2024-07-16] MEDS: chlordiazePOXIDE HCL 25 MG CAPSULE PO SCH (22:20)
[2024-07-17] MEDS: PRENATAL VITAMINS W/ FOLIC ACID TABLET (FP) PO SCH (10:13)
[2024-07-17] MEDS: GABAPENTIN 300 MG CAPSULE PO SCH (10:15)
[2024-07-17] MEDS: FAMOTIDINE 20 MG TABLET PO SCH (10:15)
[2024-07-17] MEDS: IBUPROFEN 600 MG TABLET (FP) PO PRN (11:38)
[2024-07-17] MEDS ORDERED: COLLOIDAL OATMEAL 1 BAR EACH TP PRN (11:43)
[2024-07-17 11:55] LABS: HEMATOCRIT 37.7 % (32.4-45.2); HEMOGLOBIN 12.9 GM/dL (10.7-15.3); MCH 34.8 pg (25.7-33.7); MCHC 34.2 g/dl (32.0-36.0); MEAN CELL VOLUME 101.6 fl (80-96); MEAN PLT VOLUME 7.9 fl (7.5-11.1); PLATELET COUNT 441 10^3/uL (134-434); RBC 3.71 M/mm3 (3.60-5.2); RDW 14.7 % (11.6-15.6); WHITE BLOOD COUNT 8.5 K/mm3 (4.0-10.0)
[2024-07-17] MEDS: TRIAMCINOLONE ACET 0.1% OINT 15 GM TUBE TP SCH (12:05)
[2024-07-17] MEDS: SERTRALINE HCL 50 MG TABLET (FP) PO SCH (13:19)
[2024-07-17 13:53] LABS: CHLORIDE 92 mmol/L (98-107); POTASSIUM 3.9 mmol/L (3.5-5.1); SODIUM 131 mmol/L (136-145)
[2024-07-17 13:58] LABS: ALBUMIN 3.7 g/dl (3.4-5.0); ANION GAP 11 mmol/L (4-13); CO2 28 mmol/L (21-32)
[2024-07-17 14:01] LABS: SGOT/AST 117 U/L (15-37); SGPT/ALT 63 U/L (13-61)
[2024-07-17 14:03] LABS: BILIRUBIN,TOTAL 1.3 mg/dL (0.2-1)
[2024-07-17 14:04] LABS: ALK PHOS 156 U/L (45-117)
[2024-07-17 14:18] LABS: GLUCOSE,RANDOM 417 mg/dL (74-106)
[2024-07-17] MEDS: amLODIPine BESYLATE 5 MG TABLET (FP) PO SCH (15:05)
[2024-07-17] MEDS: INSULIN (NOVOLOG) ASPART 100 UNITS/ML 10ML VIAL SQ ONE (17:14)
[2024-07-17] MEDS: INSULIN ASPART SLIDING SCALE (NOVOLOG) 1 VIAL SQ SCH (17:22)
[2024-07-17] MEDS: QUEtiapine FUMARATE 200 MG TABLET PO SCH (22:09)
[2024-07-18] MEDS: chlordiazePOXIDE HCL 25 MG CAPSULE PO SCH (05:56)
[2024-07-18] MEDS ORDERED: INSULIN (NOVOLOG) ASPART 100 UNITS/ML 10ML VIAL ONE (10:51)
[2024-07-18] MEDS ORDERED: LORazepam 1 MG TABLET PO PRN (10:56)
[2024-07-18] MEDS: LORazepam 2 MG TABLET PO SCH (17:06)
[2024-07-18] MEDS: INSULIN (NOVOLOG) ASPART 100 UNITS/ML 10ML VIAL SQ ONE ×2 (17:56→18:37)
[2024-07-18 21:50] LABS: PH,URINE 6.5 (5.0-8.0); URINE APPEARANCE CLEAR; URINE BILIRUBIN NEGATIVE (NEGATIVE); URINE COLOR YELLOW; URINE GLUCOSE (UA) 3+ (NEGATIVE); URINE KETONE TRACE (NEGATIVE); URINE LEUK ESTERASE NEGATIVE (NEGATIVE); URINE NITRITE NEGATIVE (NEGATIVE); URINE PROTEIN NEGATIVE (NEGATIVE); URINE UROBILINOGEN 0.2 mg/dL (0.2-1.0)
[2024-07-18] MEDS: INSULIN ASPART SLIDING SCALE (NOVOLOG) 1 VIAL SQ SCH (22:36)
[2024-07-19] MEDS ORDERED: chlordiazePOXIDE HCL 10 MG CAPSULE PO PRN
[2024-07-19] MEDS ORDERED: chlordiazePOXIDE HCL 10 MG CAPSULE PO SCH (05:00)
[2024-07-19] MEDS: LORazepam 1 MG TABLET PO SCH (05:21)
[2024-07-19] MEDS ORDERED: INSULIN ASPART SLIDING SCALE (NOVOLOG) 1 VIAL SQ SCH (07:00)
[2024-07-19] MEDS: INSULIN (NOVOLOG) ASPART 100 UNITS/ML 10ML VIAL SQ ONE ×2 (11:28→22:40)
[2024-07-19] MEDS ORDERED: INSULIN (NOVOLOG) ASPART 100 UNITS/ML 10ML VIAL ONE ×2 (16:58→22:39)
[2024-07-20] MEDS ORDERED: LORazepam 0.5 MG TABLET PO PRN
[2024-07-20] MEDS ORDERED: chlordiazePOXIDE HCL 10 MG CAPSULE PO SCH (05:00)
[2024-07-20] MEDS: LORazepam 0.5 MG TABLET PO SCH (05:58)
[2024-07-20] MEDS: INSULIN (NOVOLOG) ASPART 100 UNITS/ML 10ML VIAL SQ SCH (11:48)
[2024-07-20 13:10] VITALS: BP 127/80; PULSE 102; RESP 17; TEMP 97.6
[2024-07-20] MEDS: INSULIN ASPART SLIDING SCALE (NOVOLOG) 1 VIAL SQ SCH (17:09)
[2024-07-21] MEDS ORDERED: chlordiazePOXIDE HCL 10 MG CAPSULE PO ONE (05:00)
[2024-07-21] MEDS ORDERED: LORazepam 0.5 MG TABLET PO ONE (05:00)
== END 2024-07-20 23:22 | disposition short-term general hospital (02) | DRG 775 ==
LOC: YASAS 14:40 → Y6N 16:48
PROVIDERS: ADMIT Allergy & Immunology; ATTEND Surgery
PROC: HZ2ZZZZ Detoxification Services for Substance Abuse Treatment (ICD-10-PCS; principal; 2024-07-16)
DX: F10.230 Alcohol dependence with withdrawal, uncomplicated (principal); F10.282 Alcohol dependence with alcohol-induced sleep disorder; F10.24 Alcohol dependence with alcohol-induced mood disorder; F31.9 Bipolar disorder, unspecified; I10 Essential (primary) hypertension; E11.65 Type 2 diabetes mellitus with hyperglycemia; Z79.4 Long term (current) use of insulin; Z79.84 Long term (current) use of oral hypoglycemic drugs; K21.9 Gastro-esophageal reflux disease without esophagitis; R74.01 Elevation of levels of liver transaminase levels; M41.9 Scoliosis, unspecified; E28.2 Polycystic ovarian syndrome
CPT/HCPCS: 36415; 80053; 80305; 80307; 81003; 81025; 82962; 83036; 84450; 85027; 86780; Q0162

== ENCOUNTER 2024-07-20 16:26 | Inpatient (IN) | payer OTHER ==
[2024-07-20 16:45] VITALS: BMI 26.8
[2024-07-20 17:00] LABS: VENOUS BASE EXCESS 2.8 mmol/L (-2-2); VENOUS O2 SATURATION 85.1 % (70-80); VENOUS PCO2 40.6 mmHg (38-52); VENOUS PH 7.443 (7.310-7.410)
[2024-07-20 17:13] LABS: BASO % 1.1 % (0-2.0); EOS % 3.1 % (0-4.5); HEMATOCRIT 36.7 % (32.4-45.2); HEMOGLOBIN 12.3 GM/dL (10.7-15.3); LYMPH % 26.1 % (8-40); MCH 34.2 pg (25.7-33.7); MCHC 33.6 g/dl (32.0-36.0); MEAN CELL VOLUME 101.7 fl (80-96); MEAN PLT VOLUME 7.8 fl (7.5-11.1); MONO % 7.2 % (3.8-10.2); NEUT % 62.5 % (42.8-82.8); PLATELET COUNT 306 10^3/uL (134-434); RBC 3.61 M/mm3 (3.60-5.2); RDW 15.1 % (11.6-15.6); WHITE BLOOD COUNT 8.3 K/mm3 (4.0-10.0)
[2024-07-20 17:14] LABS: PH,URINE 6.5 (5.0-8.0); URINE APPEARANCE CLEAR; URINE BILIRUBIN NEGATIVE (NEGATIVE); URINE COLOR YELLOW; URINE GLUCOSE (UA) 3+ (NEGATIVE); URINE KETONE NEGATIVE (NEGATIVE); URINE LEUK ESTERASE NEGATIVE (NEGATIVE); URINE NITRITE NEGATIVE (NEGATIVE); URINE PROTEIN NEGATIVE (NEGATIVE); URINE UROBILINOGEN 0.2 mg/dL (0.2-1.0)
[2024-07-20] MEDS: LACTATED RINGERS SOLUTION 1000 ML INFUS.BAG IV ONE (17:39)
[2024-07-20 17:42] LABS: CHLORIDE 93 mmol/L (98-107); POTASSIUM 4.4 mmol/L (3.5-5.1); SODIUM 130 mmol/L (136-145)
[2024-07-20 17:44] LABS: CALCIUM 9.9 mg/dL (8.5-10.1)
[2024-07-20 17:45] LABS: ALBUMIN 3.4 g/dl (3.4-5.0); ANION GAP 10 mmol/L (4-13); BLOOD UREA NITROGEN 9.7 mg/dL (7-18); CO2 27 mmol/L (21-32); MAGNESIUM 1.8 mg/dL (1.8-2.4)
[2024-07-20 17:48] LABS: SGOT/AST 114 U/L (15-37)
[2024-07-20 17:49] LABS: BILIRUBIN,TOTAL 0.3 mg/dL (0.2-1); TOT PROT 7.3 g/dl (6.4-8.2)
[2024-07-20 17:51] LABS: ALK PHOS 141 U/L (45-117)
[2024-07-20 17:53] LABS: GLUCOSE,RANDOM 658 mg/dL (74-106)
[2024-07-20 17:58] LABS: SGPT/ALT 67 U/L (13-61)
[2024-07-20] MEDS ORDERED: INSULIN REGULAR HUMAN 100 UNITS/ML *VIAL ONE (19:46)
[2024-07-20] MEDS: INSULIN REGULAR HUMAN 100 UNITS/ML *VIAL SQ ONE (19:49)
[2024-07-20] MEDS: SODIUM CHLORIDE 1,000 ML IV STA (21:05)
[2024-07-20] MEDS ORDERED: INSULIN (LEVEMIR) 100 UNITS/ML UNITS SQ ONE (21:20)
[2024-07-20] MEDS: INSULIN (LEVEMIR) 100 UNITS/ML UNITS SQ ONE (21:23)
[2024-07-21] MEDS: GABAPENTIN 300 MG CAPSULE PO SCH ×2 (00:03→06:41)
[2024-07-21] MEDS: SODIUM CHLORIDE 1,000 ML IV SCH (00:04)
[2024-07-21] MEDS: QUEtiapine FUMARATE 200 MG TABLET PO SCH (00:04)
[2024-07-21] MEDS ORDERED: QUEtiapine FUMARATE 200 MG TABLET PO SCH ×2 (00:06→22:00)
[2024-07-21] MEDS ORDERED: INSULIN (LEVEMIR) 100 UNITS/ML UNITS SQ ONE ×2 (00:11→21:00)
[2024-07-21] MEDS: QUEtiapine FUMARATE 100 MG TABLET (FP) PO SCH (00:47)
[2024-07-21] MEDS: LORazepam 0.5 MG TABLET PO SCH (01:05)
[2024-07-21 08:40] LABS: HEMATOCRIT 33.3 % (32.4-45.2); HEMOGLOBIN 11.3 GM/dL (10.7-15.3); MCH 34.2 pg (25.7-33.7); MEAN CELL VOLUME 100.7 fl (80-96); MEAN PLT VOLUME 8.2 fl (7.5-11.1); PLATELET COUNT 274 10^3/uL (134-434); RBC 3.31 M/mm3 (3.60-5.2); RDW 15.1 % (11.6-15.6); WHITE BLOOD COUNT 7.3 K/mm3 (4.0-10.0)
[2024-07-21 08:44] LABS: INR 1.05 (0.83-1.09); PROTHROMBIN TIME (PATIENT) 11.9 SEC (9.7-13.0)
[2024-07-21 08:47] LABS: ACTIVATED PTT 18.7 SECONDS (25.2-36.5)
[2024-07-21 09:01] LABS: POTASSIUM 3.6 mmol/L (3.5-5.1)
[2024-07-21 09:04] LABS: BLOOD UREA NITROGEN 5.9 mg/dL (7-18); MAGNESIUM 1.5 mg/dL (1.8-2.4)
[2024-07-21 09:05] LABS: ALBUMIN 2.6 g/dl (3.4-5.0); CALCIUM 7.8 mg/dL (8.5-10.1)
[2024-07-21 09:07] LABS: CREATININE 0.6 mg/dL (0.55-1.3); PHOSPHOROUS 2.9 mg/dL (2.5-4.9)
[2024-07-21 09:09] LABS: BILIRUBIN,TOTAL 0.4 mg/dL (0.2-1); TOT PROT 5.8 g/dl (6.4-8.2)
[2024-07-21] MEDS: ENOXAPARIN NA (PORCINE) 40 MG/0.4 ML DISP.SYRIN SQ SCH (09:41)
[2024-07-21] MEDS: INSULIN (NOVOLOG) ASPART 100 UNITS/ML 10ML VIAL SQ SCH (09:42)
[2024-07-21] MEDS: THIAMINE 100 MG TABLET PO SCH (09:43)
[2024-07-21] MEDS: FOLIC ACID 1 MG TABLET (FP) PO SCH (09:43)
[2024-07-21] MEDS: FAMOTIDINE 20 MG TABLET PO SCH (09:44)
[2024-07-21] MEDS: amLODIPine BESYLATE 5 MG TABLET (FP) PO SCH (09:44)
[2024-07-21] MEDS: SERTRALINE HCL 50 MG TABLET (FP) PO SCH (09:55)
[2024-07-21] MEDS: MAGNESIUM 1GM/D5W 100ML - 100 ML IVPB IVPB ONE (12:30)
[2024-07-21] MEDS ORDERED: ONDANSETRON 4 MG/2 ML VIAL IVPUSH PRN (13:36)
[2024-07-21] MEDS ORDERED: INSULIN ASPART SLIDING SCALE (NOVOLOG) 1 VIAL SQ ONE (17:12)
[2024-07-21] MEDS: INSULIN (LEVEMIR) 100 UNITS/ML UNITS SQ SCH (21:21)
[2024-07-21] MEDS: QUEtiapine FUMARATE 300 MG TABLET PO SCH (21:23)
[2024-07-22 09:31] LABS: BASO % 0.8 % (0-2.0); EOS % 5.6 % (0-4.5); HEMATOCRIT 33.3 % (32.4-45.2); HEMOGLOBIN 11.3 GM/dL (10.7-15.3); LYMPH % 31.4 % (8-40); MCH 34.3 pg (25.7-33.7); MCHC 33.8 g/dl (32.0-36.0); MEAN CELL VOLUME 101.3 fl (80-96); MEAN PLT VOLUME 7.6 fl (7.5-11.1); MONO % 7.5 % (3.8-10.2); NEUT % 54.7 % (42.8-82.8); PLATELET COUNT 263 10^3/uL (134-434); RBC 3.29 M/mm3 (3.60-5.2); RDW 15.3 % (11.6-15.6); WHITE BLOOD COUNT 6.8 K/mm3 (4.0-10.0)
[2024-07-22] MEDS ORDERED: INSULIN ASPART SLIDING SCALE (NOVOLOG) 1 VIAL SQ ONE ×2 (09:37→11:17)
[2024-07-22] MEDS: INSULIN ASPART SLIDING SCALE (NOVOLOG) 1 VIAL SQ SCH (09:41)
[2024-07-22 09:49] LABS: POTASSIUM 3.5 mmol/L (3.5-5.1)
[2024-07-22 09:52] LABS: BLOOD UREA NITROGEN 6.1 mg/dL (7-18); CALCIUM 8.2 mg/dL (8.5-10.1)
[2024-07-22 09:56] LABS: CREATININE 0.6 mg/dL (0.55-1.3)
[2024-07-22] MEDS: INSULIN (LEVEMIR) 100 UNITS/ML UNITS SQ SCH (12:03)
[2024-07-22 14:23] VITALS: BP 103/64; PULSE 86; RESP 18; TEMP 98.8
== END 2024-07-22 15:17 | disposition other institution (70) | DRG 420 ==
LOC: JER 16:26 → JERBED 18:15 → OBSVTOIN 19:49 → J7W 22:26
PROVIDERS: ADMIT Internal Medicine; ATTEND Nurse Practitioner
DX: E11.65 Type 2 diabetes mellitus with hyperglycemia (principal); F10.10 Alcohol abuse, uncomplicated; F31.9 Bipolar disorder, unspecified; F41.9 Anxiety disorder, unspecified; I10 Essential (primary) hypertension; F17.210 Nicotine dependence, cigarettes, uncomplicated
CPT/HCPCS: 36415; 80048; 80053; 81003; 82010; 82803; 82962; 83036; 83605; 83690; 83735; 84100; 84703; 85025; 85027; 85610; 85730; 87086; 93005; 93010; 99285-25; G0378

== ENCOUNTER 2024-07-22 16:19 | Inpatient (IN) | payer OTHER ==
[2024-07-22 16:46] VITALS: BMI 27.8
[2024-07-22] MEDS ORDERED: METHOCARBAMOL 500 MG TABLET PO PRN (17:03)
[2024-07-22] MEDS ORDERED: BENZOCAINE/MENTHOL (CHLORASEPTIC ) LOZENGE MM PRN (17:03)
[2024-07-22] MEDS ORDERED: hydrOXYzine PAMOATE 25 MG CAPSULE (FP) PO PRN (17:03)
[2024-07-22] MEDS ORDERED: guaiFENesin 600 MG TABLET.ER (FP) PO PRN (17:03)
[2024-07-22] MEDS ORDERED: NICOTINE POLACRILEX 2 MG GUM BUC PRN (17:03)
[2024-07-22] MEDS ORDERED: NICOTINE POLACRILEX 2 MG LOZENGE BC PRN (17:03)
[2024-07-22] MEDS ORDERED: ACETAMINOPHEN 325 MG TABLET (FP) PO PRN (17:03)
[2024-07-22] MEDS ORDERED: BENZONATATE 200 MG CAPSULE PO PRN (17:03)
[2024-07-22] MEDS ORDERED: MAG HYDROX/AL HYDROX/SIMETH 30 ML UNIT-DOSE CUP PO PRN (17:03)
[2024-07-22] MEDS ORDERED: MAGNESIUM HYDROX 2400MG/30ML ORAL SUSPENSION 30 ML CUP PO PRN (17:03)
[2024-07-22] MEDS ORDERED: POLYETHYLENE GLYCOL (HEALTHYLAX) 3350 17 GM PACKET PO PRN (17:03)
[2024-07-22] MEDS ORDERED: LOPERAMIDE HCL 2 MG CAPSULE PO PRN (17:03)
[2024-07-22] MEDS: THIAMINE 100 MG TABLET PO SCH (22:22)
[2024-07-22] MEDS: INSULIN (LEVEMIR) 100 UNITS/ML UNITS SQ SCH (22:22)
[2024-07-22] MEDS: GABAPENTIN 300 MG CAPSULE PO SCH (22:22)
[2024-07-22] MEDS: QUEtiapine FUMARATE 200 MG TABLET PO ONE (22:22)
[2024-07-22] MEDS: MELATONIN 5 MG TABLETS PO SCH (22:22)
[2024-07-22] MEDS ORDERED: INSULIN ASPART SLIDING SCALE (NOVOLOG) 1 VIAL SQ ONE (23:32)
[2024-07-22] MEDS: INSULIN (NOVOLOG) ASPART 100 UNITS/ML 10ML VIAL SQ ONE (23:34)
[2024-07-23] MEDS ORDERED: INSULIN ASPART SLIDING SCALE (NOVOLOG) 1 VIAL SQ ONE (04:17)
[2024-07-23] MEDS: INSULIN ASPART SLIDING SCALE (NOVOLOG) 1 VIAL SQ SCH (06:49)
[2024-07-23] MEDS ORDERED: INSULIN (LEVEMIR) 100 UNITS/ML UNITS SQ ONE (07:49)
[2024-07-23] MEDS: PRENATAL VITAMINS W/ FOLIC ACID TABLET (FP) PO SCH (09:42)
[2024-07-23] MEDS: FAMOTIDINE 20 MG TABLET PO SCH (09:42)
[2024-07-23] MEDS: FOLIC ACID 1 MG TABLET (FP) PO SCH (09:42)
[2024-07-23] MEDS: amLODIPine BESYLATE 5 MG TABLET (FP) PO SCH (09:42)
[2024-07-23] MEDS ORDERED: INSULIN (NOVOLOG) ASPART 100 UNITS/ML 10ML VIAL ONE ×2 (12:26→16:40)
[2024-07-23] MEDS: QUEtiapine FUMARATE 100 MG TABLET (FP) PO SCH (21:03)
[2024-07-23] MEDS ORDERED: QUEtiapine FUMARATE 200 MG TABLET PO ONE (22:00)
[2024-07-24] MEDS ORDERED: INSULIN (NOVOLOG) ASPART 100 UNITS/ML 10ML VIAL ONE ×2 (06:34→12:10)
[2024-07-24] MEDS: SERTRALINE HCL 50 MG TABLET (FP) PO SCH (09:39)
[2024-07-24] MEDS: IBUPROFEN 400 MG TABLET (FP) PO PRN (09:39)
[2024-07-24] MEDS ORDERED: NICOTINE POLACRILEX 2 MG GUM BUC PRN (12:34)
[2024-07-24] MEDS: NALTREXONE HCL 50 MG TABLET PO SCH (13:14)
[2024-07-24] MEDS: NICOTINE 7 MG/24 HOURS TOPICAL PATCH TD SCH (13:15)
[2024-07-24] MEDS: AMOX TR/POT CLAV 500MG/125MG TABLETS (FP) PO SCH (17:19)
[2024-07-24] MEDS: BENZOCAINE 20 % GEL TUBE MM PRN (21:23)
[2024-07-24] MEDS: INSULIN (LEVEMIR) 100 UNITS/ML UNITS SQ SCH (21:27)
[2024-07-25] MEDS ORDERED: INSULIN (NOVOLOG) ASPART 100 UNITS/ML 10ML VIAL ONE ×2 (07:36→11:17)
[2024-07-25] MEDS: HYDROCORTISONE 1% TOPICAL CREAM 30 GM TUBE TP PRN (11:01)
[2024-07-26] MEDS ORDERED: INSULIN (NOVOLOG) ASPART 100 UNITS/ML 10ML VIAL ONE ×2 (07:26→12:13)
[2024-07-27] MEDS ORDERED: INSULIN (NOVOLOG) ASPART 100 UNITS/ML 10ML VIAL ONE ×3 (06:04→16:36)
[2024-07-28] MEDS ORDERED: INSULIN (NOVOLOG) ASPART 100 UNITS/ML 10ML VIAL ONE (06:13)
[2024-07-29] MEDS ORDERED: INSULIN (NOVOLOG) ASPART 100 UNITS/ML 10ML VIAL ONE (11:06)
[2024-07-30] MEDS ORDERED: INSULIN (NOVOLOG) ASPART 100 UNITS/ML 10ML VIAL ONE ×3 (06:01→16:44)
[2024-07-30] MEDS: INSULIN (LEVEMIR) 100 UNITS/ML UNITS SQ SCH (21:16)
[2024-07-31] MEDS ORDERED: INSULIN (NOVOLOG) ASPART 100 UNITS/ML 10ML VIAL ONE (10:55)
[2024-08-01] MEDS ORDERED: INSULIN (NOVOLOG) ASPART 100 UNITS/ML 10ML VIAL ONE (06:18)
[2024-08-01 07:22] VITALS: BP 114/77; PULSE 87; RESP 16; TEMP 97.7
[2024-08-01] MEDS ORDERED: NALOXONE (NYS OPIOID OVERDOSE PROGRAM) 4 MG/0.1 ML SPRAY NS PRN (10:02)
[2024-08-01] MEDS: NALOXONE (NARCAN) HCL 4 MG/0.1 ML SPRAY NS ONE (10:59)
[2024-08-04] MEDS ORDERED: NALTREXONE MICROSPHERES (VIVITROL) 380 MG DISP.SYRIN IM ONE (10:00)
== END 2024-08-01 10:10 | disposition home or self-care (01) | DRG 772 ==
LOC: YASAS 16:19 → Y3NR 18:30 → Y5N 07-23 13:33
PROVIDERS: ADMIT Psychiatry & Neurology Pain Medicine; ATTEND Psychiatry & Neurology Pain Medicine
PROC: HZ42ZZZ Group Counseling for Substance Abuse Treatment, Cognitive-Behavioral (ICD-10-PCS; principal; 2024-07-22)
DX: F10.24 Alcohol dependence with alcohol-induced mood disorder (principal); F10.20 Alcohol dependence, uncomplicated; F17.210 Nicotine dependence, cigarettes, uncomplicated; F10.282 Alcohol dependence with alcohol-induced sleep disorder; F31.9 Bipolar disorder, unspecified; F41.9 Anxiety disorder, unspecified; F25.9 Schizoaffective disorder, unspecified; E72.20 Disorder of urea cycle metabolism, unspecified; I10 Essential (primary) hypertension; K02.9 Dental caries, unspecified; E11.9 Type 2 diabetes mellitus without complications; Z79.4 Long term (current) use of insulin
CPT/HCPCS: 80305; 80307; 81025; 82962; 87811

== ENCOUNTER 2025-03-22 16:22 | Inpatient (IN) | payer OTHER ==
[2025-03-22 17:23] VITALS: TEMP 97.1; BMI 26.0
[2025-03-22] MEDS ORDERED: NALOXONE (NARCAN) HCL 4 MG/0.1 ML SPRAY NS PRN (18:18)
[2025-03-22] MEDS ORDERED: POLYETHYLENE GLYCOL (HEALTHYLAX) 3350 17 GM PACKET PO PRN (18:18)
[2025-03-22] MEDS ORDERED: ONDANSETRON *ODT* 4 MG TABLET SL PRN (18:18)
[2025-03-22] MEDS ORDERED: diazePAM 5 MG TABLET PO PRN (18:18)
[2025-03-22] MEDS ORDERED: hydrOXYzine PAMOATE 25 MG CAPSULE (FP) PO PRN (18:18)
[2025-03-22] MEDS ORDERED: BENZONATATE 200 MG CAPSULE PO PRN (18:18)
[2025-03-22] MEDS ORDERED: LOPERAMIDE HCL 2 MG CAPSULE PO PRN (18:18)
[2025-03-22] MEDS ORDERED: DICYCLOMINE HCL 10 MG CAPSULE PO PRN (18:18)
[2025-03-22] MEDS ORDERED: BENZOCAINE/MENTHOL (CHLORASEPTIC ) LOZENGE MM PRN (18:18)
[2025-03-22] MEDS ORDERED: MAG HYDROX/AL HYDROX/SIMETH 30 ML UNIT-DOSE CUP PO PRN (18:18)
[2025-03-22] MEDS ORDERED: IBUPROFEN 600 MG TABLET (FP) PO PRN (18:18)
[2025-03-22] MEDS ORDERED: BISMUTH SUBSALICYLATE 524 MG/30 ML PO PRN (18:18)
[2025-03-22] MEDS ORDERED: METHOCARBAMOL 500 MG TABLET PO PRN (18:18)
[2025-03-22] MEDS ORDERED: ACETAMINOPHEN 325 MG TABLET (FP) PO PRN (18:18)
[2025-03-22] MEDS ORDERED: MAGNESIUM HYDROX 2400MG/30ML ORAL SUSPENSION 30 ML CUP PO PRN (18:18)
[2025-03-22] MEDS ORDERED: guaiFENesin 600 MG TABLET.ER (FP) PO PRN (18:18)
[2025-03-22] MEDS ORDERED: IBUPROFEN 400 MG TABLET (FP) PO PRN (18:18)
[2025-03-22 19:21] VITALS: BP 149/87; PULSE 85; RESP 17
[2025-03-22] MEDS ORDERED: INSULIN GLARGINE (LANTUS) 100 UNITS/ML UNITS SQ SCH (22:00)
[2025-03-22] MEDS ORDERED: MELATONIN 5 MG TABLETS PO SCH (22:00)
[2025-03-22] MEDS ORDERED: THIAMINE 100 MG TABLET PO SCH (22:00)
[2025-03-22] MEDS ORDERED: diazePAM 5 MG TABLET PO SCH (23:00)
[2025-03-23] MEDS ORDERED: INSULIN ASPART SLIDING SCALE (NOVOLOG) 1 VIAL SQ SCH (07:00)
[2025-03-23] MEDS ORDERED: amLODIPine BESYLATE 5 MG TABLET (FP) PO SCH (10:00)
[2025-03-23] MEDS ORDERED: PRENATAL VITAMINS W/ FOLIC ACID TABLET (FP) PO SCH (10:00)
[2025-03-23] MEDS ORDERED: PANTOPRAZOLE 40 MG TABLET PO SCH (10:00)
[2025-03-24] MEDS ORDERED: diazePAM 5 MG TABLET PO SCH (06:00)
[2025-03-25] MEDS ORDERED: diazePAM 5 MG TABLET PO SCH (06:00)
[2025-03-26] MEDS ORDERED: diazePAM 5 MG TABLET PO ONE (06:00)
== END 2025-03-22 20:51 | disposition left against medical advice (07) | DRG 770 ==
LOC: YASAS 16:22 → Y3N 19:01
PROVIDERS: ADMIT Family Medicine; ATTEND Family Medicine
PROC: HZ2ZZZZ Detoxification Services for Substance Abuse Treatment (ICD-10-PCS; principal; 2025-03-22)
DX: F10.230 Alcohol dependence with withdrawal, uncomplicated (principal); F14.20 Cocaine dependence, uncomplicated; F17.210 Nicotine dependence, cigarettes, uncomplicated; F25.9 Schizoaffective disorder, unspecified; F31.9 Bipolar disorder, unspecified; F10.24 Alcohol dependence with alcohol-induced mood disorder; F41.9 Anxiety disorder, unspecified; E11.9 Type 2 diabetes mellitus without complications; Z79.4 Long term (current) use of insulin; I10 Essential (primary) hypertension; K21.9 Gastro-esophageal reflux disease without esophagitis; M41.9 Scoliosis, unspecified; Z99.89 Dependence on other enabling machines and devices
CPT/HCPCS: 80305; 80307; 81025; 82962; 93005; 93010